=== PATIENT | male | born 1960 | race Caucasian/White ===

== ENCOUNTER 2021-06-17 11:54 | Inpatient (IN) ==
[2021-06-17] MEDS ORDERED: ALBUT/IPRATROP 3MG/0.5MG NEB 3 ML VIAL NEB ONE (12:13)
[2021-06-17] MEDS ORDERED: dexAMETHasone**PF** 10 MG/ML VIAL IV ONE (12:13)
--- NOTE | 2021-06-17 12:19 | Emergency Department Note ---
Impression & Plan COVID-19, Acute hypercapnic respiratory failure, Hypoxia, Bilateral lower leg cellulitis, Acute congestive heart failure ED Provider Note Name: HODA GARCIA Age: 60 Sex: M Arrives Via: Walk-In Informant: Patient ED Provider: Tawanda Dowell MD Chief Complaint: shortness of breath Impression: As Per Impressions Above Medical Decision Makin yr old male with morbid obesity and 40 pack year smoking history arrives for worsening shortness of breath x 3 days. He arrives quite ill appearing with hypoxia, diffuse edema, diffuse wheezing of lungs and confusion. IV/labs/cultures obtained including covid testing. Given extending neb and steroids along with being on 100% NRB. Mentation improving though still a bit wifty. With elevated dimer and acidosis felt that CT PE indicated thus sent for this. On return placed on Bipap for further management. Given empiric broad abx for presumed leg infections. He does not have fevers, wbc elevation nor lactic acidosis thus seems less likely this is primarily bacterial sepsis, though I suspect legs are infected given erythema and weeping ulcerations. With findings of large heart, fluid on lungs and 4+ pitting edema in legs he was given lasix IV as well as some Labetalol and BP still severely elevated. Patient initially looking OK on BIPAP but started worsening mentation. Gradually worsening as Covid returned positive. Given mental status felt patient no longer able to protect airway and thus he was intubated. Intubated by me without difficulty. Started propofol for sedation and hospitalist in to evaluate patient further. Of note, patient reported covid vaccination though unclear specifics on this. Prior Medical Record and Triage/Nursing Notes reviewed by Me Differentials:Reactive airway disease, pneumonia, pneumothorax, COPD, CHF, infections, cardiac ischemia, pulmonary embolism, musculoskeletal, gastrointestinal, as well as other pathologies. Vital Signs: reviewed and remarkable for hypoxia Interventions: See Below Labs:Reviewed and remarkable for elevated trop, dimer, covid positive Imaging:See Below EKG:Per My Interpretation: Indication SOB: NSR 84 bpm, qtc 474. Bifascicular block. No Ectopy. No Ischemia. Compared to EKG 04/06/2006, no significant changes. Cardiac/Tele Monitoring: Cardiac Monitoring: An Order was placed for continuous cardiac monitoring. The monitor shows a rate of 80 with a normal sinus rhythm. Consults:Dr Fisher [facility], Dr Martin Hospitalist Plan: Disposition:Hospitalization. Condition: Fair History of Present Illness:60 yr old male arrives for evaluation of shortness of breath. Patient with 3 days worsening shortness of breath. Notes that he started feeling short of breath at work ([employer]). Gradually worsening. Associated cough and chest tightness. Admits he may have passed out 2 nights ago and struck his head. Has chronic leg swelling and weeping wounds which he usually keeps wrapped. Admits rash of lower legs is normal for him. Denies fevers, chills, nausea, vomiting, headache, neck pain, vision changes, back pain , abdominal pain, urinary/bowel symptoms nor other symptoms. No medications taken for this other than Aleve without improvement. No recent abx. Any exertion makes worse, rest makes better. ROS: See above HPI for pertinent positives & negatives. A total of 10 systems reviewed and were otherwise negative. Past Medical History:Chronic Leg Swelling Past Surgical History:"Many" Family History:Unknown Social History:Smoker x 40 yrs, works at [employer] Home Medications:None Allergies:NKDA Vitals:Blood Pressure: 162/90, Pulse 91, RR 20, T 3.5C, O2 74% on RA Physical Exam: GENERAL: Patient is very unwell appearing and in moderate distress. He is very dyspneic and tired appearing EYES: No scleral icterus, unremarkable pupils. ENT: Mucous membranes moist, no nasal congestion. NECK: No masses appreciated, nomeningismus, trachea is midline. RESPIRATORY: diffuse tight wheezing, tachypnea, dyspnea, crackles all lung iglesias CARDIOVASCULAR: Regular rate and rhythm.No murmurs, rubs, gallops appreciated. GASTROINTESTINAL: large protuberant abdomen which is soft, non-tender, no peritonitis.Bowel sounds positive.No masses appreciated. BACK: No midline tenderness, no CVA tenderness EXTREMITIES: Normal motion all extremities. Venous stasis with 4+ pitting edema with open weeping wounds bilaterally on legs NEUROLOGIC: Awake, oriented though slightly confused/distant, no acute motor or sensory deficits, no focal weakness, cranial nerves grossly intact. SKIN: No rash, no jaundice, no diaphoresis. PSYCH: Appropriate GCS: 15 ED Course: Times/Reassessments: gradually worsening mental decline requiring intubation. Procedures: Endotracheal Intubation Indication: Respiratory Failure The patient was being bagged by respiratory with BVM. Suction, airway equipment, RSI drugs, respiratory equipment, and appropriate personnel were prepared prior to the initiation of the procedure. A time out was taken. Induction was performed with Etomidate/Succinylcholine. After observing the clinical benefit of the medications, the airway was easily visualized utilizing a #4 Glidescope blade. A 7.5 size ETT tube was placed atraumatically to 26 cm using standard technique. The cuff inflated without signs of malfunction. There were bilateral breath sounds, positive colormetric change, no gastric sounds, a good capnography waveform, and post procedure pulse oximetry was 97%. Post intubation sedation and paralysis was administered using propofol. There were no complications. Critical Care: I have personally spent 90 minutes of critical care time in the direct management of this patient. Acute respiratory failure secondary to covid. This was a life/limb threatening event. This 90 minutes is in excess of all separately billable procedures. Tawanda Dowell MD Past Med/Surg History Medical History (Updated 06/17/21 @ 15:34 by Susan Weaver PA-C) Dyslipidemia Impaired fasting glucose Obesity Tobacco use Venous insufficiency Surgical History (Updated 06/17/21 @ 15:27 by Susan Weaver PA-C) History of arthroplasty of right knee History of bilateral total hip arthroplasty History of cranial surgery For epidural hematoma Hx of tonsillectomy Family History (Updated 06/17/21 @ 15:35 by Susan Weaver PA-C) Other Diabetes Social History Smoking Status: Current every day smoker Feels Safe at Home: Yes Allergies Allergies Allergy/AdvReac Type Severity Reaction Status Date / Time No Known Allergies Allergy Unknown Verified 04/06/06 15:02 Home Meds Home Medications Medication Instructions Recorded Confirmed No Known Home Medications 06/17/21 06/17/21 Results & Data (ED) Vital Signs Vital Signs - 24 hr 06/17/21 11:55 06/17/21 12:00 06/17/21 12:26 Temperature 36.5 C Temperature Source Temporal Artery Scan Pulse Rate 91 H 79 Pulse Rate [Right Finger] Pulse Rhythm [Right Finger] Pulse Strength [Right Finger] Respiratory Rate 20 3 L Respiratory Effort / Characteristics Non-Labored Spontaneous Respiratory Depth Normal Respiratory Pattern Regular Blood Pressure 162/90 H Blood Pressure [Right Arm] Blood Pressure Mean 114 Blood Pressure Mean [Right Arm] Blood Pressure Position [Right Arm] Pulse Oximetry 98 74 L 96 Oxygen Delivery Method Non-rebreather Room Air Nebulizer Oxygen Flow Rate 15 Fraction of Inspired Oxygen SaO2/FiO2 Ratio Sepsis Recent Fever Within 48 Hours No Sepsis New/Unexplained Change in Mental Status No Sepsis Action Taken by Nursing No Action Required 06/17/21 12:28 06/17/21 12:30 06/17/21 13:00 Temperature Temperature Source Pulse Rate 80 79 Pulse Rate [Right Finger] 77 Pulse Rhythm [Right Finger] Pulse Strength [Right Finger] Respiratory Rate 18 10 L 29 H Respiratory Effort / Characteristics Spontaneous Respiratory Depth Respiratory Pattern Blood Pressure 211/129 H 192/92 H Blood Pressure [Right Arm] Blood Pressure Mean 156 125 Blood Pressure Mean [Right Arm] Blood Pressure Position [Right Arm] Pulse Oximetry 97 94 96 Oxygen Delivery Method Non-rebreather Nebulizer Nebulizer Oxygen Flow Rate 13 Fraction of Inspired Oxygen SaO2/FiO2 Ratio Sepsis Recent Fever Within 48 Hours Sepsis New/Unexplained Change in Mental Status Sepsis Action Taken by Nursing 06/17/21 13:25 06/17/21 13:59 06/17/21 14:16 Temperature Temperature Source Pulse Rate 84 Pulse Rate [Right Finger] 80 Pulse Rhythm [Right Finger] Regular Pulse Strength [Right Finger] Normal Respiratory Rate 22 22 Respiratory Effort / Characteristics Short of Breath Non-Labored Respiratory Depth Normal Normal Respiratory Pattern Tachypnea Regular Blood Pressure Blood Pressure [Right Arm] 200/133 H Blood Pressure Mean Blood Pressure Mean [Right Arm] 155 Blood Pressure Position [Right Arm] Pulse Oximetry 97 94 Oxygen Delivery Method Non-rebreather Oxygen Flow Rate 15 Fraction of Inspired Oxygen 60 SaO2/FiO2 Ratio Sepsis Recent Fever Within 48 Hours Sepsis New/Unexplained Change in Mental Status Sepsis Action Taken by Nursing 06/17/21 14:27 06/17/21 14:30 06/17/21 15:41 Temperature Temperature Source Pulse Rate 66 Pulse Rate [Right Finger] 81 74 Pulse Rhythm [Right Finger] Regular Regular Pulse Strength [Right Finger] Normal Respiratory Rate 14 14 21 Respiratory Effort / Characteristics Non-Labored Non-Labored Respiratory Depth Normal Normal Respiratory Pattern Regular Blood Pressure Blood Pressure [Right Arm] 163/99 H 128/90 Blood Pressure Mean Blood Pressure Mean [Right Arm] 120 102 Blood Pressure Position [Right Arm] Lying Pulse Oximetry 92 93 100 Oxygen Delivery Method BiPAP BiPAP Oxygen Flow Rate Fraction of Inspired Oxygen 60 80 SaO2/FiO2 Ratio 153 Sepsis Recent Fever Within 48 Hours Sepsis New/Unexplained Change in Mental Status Sepsis Action Taken by Nursing Laboratory Data Result diagrams: 06/17/21 12:23 06/17/21 12:23 Lab Results 06/17/21 06/17/21 06/17/21 Range/Units 12:23 12:23 12:23 WBC 12.42 H (4.8-10.8) K/uL RBC 5.67 (4.7-6.1) M/uL Hgb 17.3 (14.0-18.0) g/dL Hct 52.5 H (42-52) % MCV 92.6 (80-100) fL MCH 30.5 (25-34) pg MCHC 33.0 (32-36) g/dL RDW Std Deviation 48.2 H (36.4-46.3) fL RDW Coeff of Rosanna 14.2 (11.5-14.5) % Plt Count 297 (130-400) K/uL MPV 9.8 (7.4-10.4) fL Immature Gran % (Auto) 0.9 % Neut % (Auto) 76.0 % Lymph % (Auto) 12.2 % [place] % (Auto) 10.4 % Eos % (Auto) 0.3 % Baso % (Auto) 0.2 % Neut # (Auto) 9.44 H (1.4-6.5) K/uL Lymph # (Auto) 1.51 (1.2-3.4) K/uL [place] # (Auto) 1.29 H (0.11-0.59) K/uL Eos # (Auto) 0.04 (0-0.5) K/uL Baso # (Auto) 0.03 (0-0.2) K/uL Immature Gran # (Auto) 0.11 H (0.00-0.02) K/uL D-Dimer (0-500) ug/L FEU ABG pH (7.35-7.45) ABG pCO2 (35-46) mmHg ABG pO2 (80-95) mmHg ABG HCO3 (19-24) mmol/L ABG O2 Saturation (90-95) % ABG Base Excess (-9-1.8) mEq/L Ivan Test (Pos) VBG pH (7.36-7.41) VBG pCO2 (38-50) mmHg VBG pO2 mmHg VBG HCO3 mmol/L VBG O2 Saturation % VBG Base Excess mEq/L Barometric Pressure mm/Hg Oxygen Given Sodium 128 L (136-145) mmol/L Potassium 4.9 (3.5-5.1) mmol/L Chloride 92 L (98-107) mmol/L Carbon Dioxide 31 (21-32) mmol/L Anion Gap 5.0 (3-11) BUN 29 H (7-18) mg/dl Creatinine 1.09 (0.6-1.4) mg/dl Est Cr Clr Drug Dosing 102.8 ml/min Est GFR ( Amer) 86.3 ml/min Est GFR (Non-Af Amer) 74.4 ml/min BUN/Creatinine Ratio 26.2 H (10-20) Glucose 112 H (70-99) mg/dl Lactate 1.3 (0.4-2.0) mmol/L Calcium 8.3 L (8.5-10.1) mg/dl Magnesium 2.3 (1.8-2.4) mg/dl Total Bilirubin 1.2 H (0.2-1) mg/dl Direct Bilirubin 0.8 H (0-0.2) mg/dl AST 62 H (15-37) U/L ALT 73 (12-78) U/L Alkaline Phosphatase 106 (45-117) U/L Troponin I 0.106 H* (0-0.045) ng/ml C-Reactive Protein 2.35 H (0-0.29) mg/dl NT-Pro-B Natriuret Pep 6848 H (0-900) pg/ml Total Protein 6.9 (6.4-8.2) gm/dl Albumin 3.2 L (3.4-5.0) gm/dl Lipase 378 (73-393) U/L Procalcitonin (0-0.5) ng/ml TSH 1.140 (0.300-4.500) uIu/ml COVID-19 Eval Order SARS-CoV-2 (PCR) (Negative) 06/17/21 06/17/21 06/17/21 Range/Units 12:23 12:23 12:39 WBC (4.8-10.8) K/uL RBC (4.7-6.1) M/uL Hgb (14.0-18.0) g/dL Hct (42-52) % MCV (80-100) fL MCH (25-34) pg MCHC (32-36) g/dL RDW Std Deviation (36.4-46.3) fL RDW Coeff of Rosanna (11.5-14.5) % Plt Count (130-400) K/uL MPV (7.4-10.4) fL Immature Gran % (Auto) % Neut % (Auto) % Lymph % (Auto) % [place] % (Auto) % Eos % (Auto) % Baso % (Auto) % Neut # (Auto) (1.4-6.5) K/uL Lymph # (Auto) (1.2-3.4) K/uL [place] # (Auto) (0.11-0.59) K/uL Eos # (Auto) (0-0.5) K/uL Baso # (Auto) (0-0.2) K/uL Immature Gran # (Auto) (0.00-0.02) K/uL D-Dimer 1090 H* (0-500) ug/L FEU ABG pH (7.35-7.45) ABG pCO2 (35-46) mmHg ABG pO2 (80-95) mmHg ABG HCO3 (19-24) mmol/L ABG O2 Saturation (90-95) % ABG Base Excess (-9-1.8) mEq/L Ivan Test (Pos) VBG pH 7.19 L (7.36-7.41) VBG pCO2 94 H (38-50) mmHg VBG pO2 86 mmHg VBG HCO3 35 mmol/L VBG O2 Saturation 95.0 % VBG Base Excess 2.8 mEq/L Barometric Pressure 733.9 mm/Hg Oxygen Given Sodium (136-145) mmol/L Potassium (3.5-5.1) mmol/L Chloride (98-107) mmol/L Carbon Dioxide (21-32) mmol/L Anion Gap (3-11) BUN (7-18) mg/dl Creatinine (0.6-1.4) mg/dl Est Cr Clr Drug Dosing ml/min Est GFR ( Amer) ml/min Est GFR (Non-Af Amer) ml/min BUN/Creatinine Ratio (10-20) Glucose (70-99) mg/dl Lactate (0.4-2.0) mmol/L Calcium (8.5-10.1) mg/dl Magnesium (1.8-2.4) mg/dl Total Bilirubin (0.2-1) mg/dl Direct Bilirubin (0-0.2) mg/dl AST (15-37) U/L ALT (12-78) U/L Alkaline Phosphatase (45-117) U/L Troponin I (0-0.045) ng/ml C-Reactive Protein (0-0.29) mg/dl NT-Pro-B Natriuret Pep (0-900) pg/ml Total Protein (6.4-8.2) gm/dl Albumin (3.4-5.0) gm/dl Lipase (73-393) U/L Procalcitonin 0.07 (0-0.5) ng/ml TSH (0.300-4.500) uIu/ml COVID-19 Eval Order SARS-CoV-2 (PCR) (Negative) 06/17/21 06/17/21 06/17/21 Range/Units 13:28 13:28 15:30 WBC (4.8-10.8) K/uL RBC (4.7-6.1) M/uL Hgb (14.0-18.0) g/dL Hct (42-52) % MCV (80-100) fL MCH (25-34) pg MCHC (32-36) g/dL RDW Std Deviation (36.4-46.3) fL RDW Coeff of Rosanna (11.5-14.5) % Plt Count (130-400) K/uL MPV (7.4-10.4) fL Immature Gran % (Auto) % Neut % (Auto) % Lymph % (Auto) % [place] % (Auto) % Eos % (Auto) % Baso % (Auto) % Neut # (Auto) (1.4-6.5) K/uL Lymph # (Auto) (1.2-3.4) K/uL [place] # (Auto) (0.11-0.59) K/uL Eos # (Auto) (0-0.5) K/uL Baso # (Auto) (0-0.2) K/uL Immature Gran # (Auto) (0.00-0.02) K/uL D-Dimer (0-500) ug/L FEU ABG pH 7.14 L* (7.35-7.45) ABG pCO2 104 H (35-46) mmHg ABG pO2 74 L (80-95) mmHg ABG HCO3 35 H (19-24) mmol/L ABG O2 Saturation 92.7 (90-95) % ABG Base Excess 1.3 (-9-1.8) mEq/L Ivan Test Pos (Pos) VBG pH (7.36-7.41) VBG pCO2 (38-50) mmHg VBG pO2 mmHg VBG HCO3 mmol/L VBG O2 Saturation % VBG Base Excess mEq/L Barometric Pressure 735.8 mm/Hg Oxygen Given 60% Sodium (136-145) mmol/L Potassium (3.5-5.1) mmol/L Chloride (98-107) mmol/L Carbon Dioxide (21-32) mmol/L Anion Gap (3-11) BUN (7-18) mg/dl Creatinine (0.6-1.4) mg/dl Est Cr Clr Drug Dosing ml/min Est GFR ( Amer) ml/min Est GFR (Non-Af Amer) ml/min BUN/Creatinine Ratio (10-20) Glucose (70-99) mg/dl Lactate (0.4-2.0) mmol/L Calcium (8.5-10.1) mg/dl Magnesium (1.8-2.4) mg/dl Total Bilirubin (0.2-1) mg/dl Direct Bilirubin (0-0.2) mg/dl AST (15-37) U/L ALT (12-78) U/L Alkaline Phosphatase (45-117) U/L Troponin I (0-0.045) ng/ml C-Reactive Protein (0-0.29) mg/dl NT-Pro-B Natriuret Pep (0-900) pg/ml Total Protein (6.4-8.2) gm/dl Albumin (3.4-5.0) gm/dl Lipase (73-393) U/L Procalcitonin (0-0.5) ng/ml TSH (0.300-4.500) uIu/ml COVID-19 Eval Order Covid19 at [facility] SARS-CoV-2 (PCR) POSITIVE A* (Negative) Administered Medications Discontinued Medications Albuterol (Albut/Ipratrop 3mg/0.5mg Neb 3 Ml Vial) 12 ml NEB ONE ONE Stop: 06/17/21 12:14 Last Admin: 06/17/21 12:27 Dose: 12 ml Documented by: [id number] Dexamethasone Sodium Phosphate (DexamethasonePf 10 Mg/Ml Vial) 10 mg IV NOW ONE Stop: 06/17/21 12:14 Last Admin: 06/17/21 12:51 Dose: 10 mg Documented by: [id number] Furosemide (Furosemide 40 Mg/4 Ml Vial) 40 mg IV ONE ONE Stop: 06/17/21 14:18 Last Admin: 06/17/21 14:22 Dose: 40 mg Documented by: [id number] Piperacillin Sod/Tazobactam Sod (Zosyn) 4.5 gm in 120 mls @ 240 mls/hr IV NOW ONE Stop: 06/17/21 14:38 Last Infusion: 06/17/21 15:06 Dose: 0 mls/hr Documented by: [id number] Admin: 06/17/21 14:22 Dose: 240 mls/hr Documented by: [id number] Daptomycin 600 mg/ Syringe 12 mls @ 6 mls/min IV NOW ONE; Protocol Stop: 06/17/21 14:10 Last Admin: 06/17/21 14:24 Dose: 6 mls/min Documented by: [id number] Ioversol (Optiray 320 125ml) 119 ml IV ONCE ONE Stop: 06/17/21 13:55 Last Admin: 06/17/21 13:55 Dose: 119 ml Documented by: [id number] Labetalol HCl (Labetalol Hcl Iv 5 Mg/Ml 20ml) 10 mg IV NOW STA Stop: 06/17/21 14:06 Last Admin: 06/17/21 14:22 Dose: 10 mg Documented by: [id number] Cosigned by: [id number] Imaging Data Radiologist's Impression: Chest CTA 06/17/21 13:25 CT ANGIOGRAM OF THE CHEST CLINICAL HISTORY: Dyspnea. Dizziness. COMPARISON STUDY: Chest CT dated 04/07/2006. TECHNIQUE: Following the IV administration of 119 cc of Optiray 320, CT angiogram of the chest was performed from the upper abdomen to the thoracic inlet utilizing the pulmonary embolus protocol. Images are reviewed in the axial, sagittal, and coronal planes. 3-D MIPS images are created and assessed. IV contrast was administered without complication. A dose lowering technique w as utilized adhering to the principles of ALARA. CT DOSE: 2164.61 mGy.cm FINDINGS: Thyroid: Mildly enlarged and heterogeneous. Thoracic aorta: The thoracic aorta is normal in caliber and demonstrates standard 3-vessel arch anatomy. No dissection is seen. Pulmonary vasculature: The pulmonary trunk is dilated, measuring up to 4.2 cm diameter. This suggests pulmonary artery hypertension. There are no filling defects identified in main, lobar, or proximal segmental pulmonary branches to suggest pulmonary embolus. Evaluation of the peripheral branches is degraded by motion artifact and suboptimal contrast opacification. Heart: The heart is markedly enlarged and without pericardial effusion. Lungs and pleural spaces: Evaluation of the lung parenchyma is degraded by motion artifact. There is a small right pleural effusion with associated right basilar consolidation. Fluid is seen tracking along the right major fissure. Atelectasis is noted at the left lung base. The trachea and central airways are clear. Mediastinum: There are numerous mildly enlarged mediastinal nodes which measure up to 11 mm in short axis. Nathaly: Enlarged hilar nodes measure up to 15 mm short axis. Axillae: There is no axillary lymphadenopathy. Upper abdomen: The liver is cirrhotic in morphology and heterogeneous in attenuation. There is a small to moderate volume of perihepatic ascites. Diverticulosis is noted in the partially imaged left colon. A gastrohepatic lymph node on image #31 measures 2.0 x 1.5 cm. There is a small hiatal hernia. Skeletal structures: The skeletal structures are osteopenic. Spondylotic change is noted throughout the thoracic spine. There are healed left-sided rib fractures. No lytic or blastic bony lesions are seen. IMPRESSION: 1. Motion degraded examination. 2. There is no evidence of central pulmonary embolus in the main, lobar, or proximal segmental pulmonary arteries. 3. Marked cardiomegaly with evidence of pulmonary artery hypertension. 4. Small right pleural effusion with right basilar consolidation. This could represent atelectasis and/or pneumonia and clinical correlation will be required. 5. Cirrhotic liver morphology with upper abdominal ascites. 6. Mildly enlarged mediastinal and hilar nodes may be reactive. 7. There is a pathologically enlarged gastrohepatic node. This is nonspecific and neoplasm is not excluded. ACT 112: Negative or not required by law. Electronically signed by: Murray Abdalla M.D. 06/17/2021 2:[address] 06/17/21 13:25 CT head/brain wo con CLINICAL HISTORY: fall head injury . Pain, dizziness and blurred vision. Intermittent arm numbness COMPARISON STUDY: 05/24/2006 CT DOSE: TECHNIQUE: Standard CT of the Brain was performed without IV contrast. A dose lowering technique was utilized adhering to the principles of ALARA. FINDINGS: Extraaxial space: There is no evidence for subdural hematoma. There are no extra-axial fluid collections. Ventricles and cisterns: The ventricles are normal in size and configuration. There is no evidence for midline shift or mass effect. Parenchyma: There is no subarachnoid or intraparenchymal hemorrhage. There is no evidence for an acute infarct or cerebral edema. There is homogeneous attenuation of the brain parenchyma. There are no gross mass lesions. Osseous structures: There is no evidence for an acute fracture. The visualized paranasal sinuses are clear. The mastoid air cells are clear bilaterally. Soft tissues: There is no evidence for focal soft tissue swelling. IMPRESSION: No acute intracerebral pathology. ACT 112: Negative or not required by law. Electronically signed by: Saleem Templeton M.D. 06/17/2021 2:12 PM Discharge Plan Visit Data Chief Complaint: Shortness of Breath/Dyspnea Stated Complaint: SOB, WEEZING, TINGLING IN HANDS, BLURRED VISION ED Provider: Tawanda Dowell Discharge Problem: COVID-19, Acute hypercapnic respiratory failure, Hypoxia, Bilateral lower leg cellulitis, Acute congestive heart failure Forms Stand Alone Forms: [facility] Prescriptions Prescriptions: No Action No Known Home Medications RF: 0 Referrals Referrals: PCP,NO [Primary Care Provider] - Discharge Problem: Acute congestive heart failure Qualifiers: Heart failure type: combined systolic and diastolic Qualified Code(s): I50.41 - Acute combined systolic (congestive) and diastolic (congestive) heart failure
[2021-06-17 12:38] LABS: Basophils # (auto) 0.03 K/uL (0-0.2); Basophils % (auto) 0.2 %; Eosinophils # (auto) 0.04 K/uL (0-0.5); Eosinophils % (auto) 0.3 %; Hematocrit (blood only) 52.5 % (42-52); Hemoglobin 17.3 g/dL (14.0-18.0); Immature Granulocytes # (auto) 0.11 K/uL (0.00-0.02); Immature Granulocytes % (auto) 0.9 %; Lymphocytes # (auto) 1.51 K/uL (1.2-3.4); Lymphocytes % (auto) 12.2 %; Mean Corpuscular Hemoglobin 30.5 pg (25-34); Mean Corpuscular Volume 92.6 fL (80-100); Mean Platelet Volume 9.8 fL (7.4-10.4); Monocytes # (auto) 1.29 K/uL (0.11-0.59); Monocytes % (auto) 10.4 %; Neutrophils # (auto) 9.44 K/uL (1.4-6.5); Platelet Count 297 K/uL (130-400); RDW Coefficient of Variation 14.2 % (11.5-14.5); RDW Standard Deviation 48.2 fL (36.4-46.3); Red Blood Count 5.67 M/uL (4.7-6.1); White Blood Count 12.42 K/uL (4.8-10.8)
[2021-06-17 12:49] LABS: Base Excess VBG 2.8 mEq/L; pH VBG 7.19 (7.36-7.41)
[2021-06-17 12:51] LABS: D Dimer 1090 ug/L FEU (0-500)
[2021-06-17 12:54] LABS: Albumin Level 3.2 gm/dl (3.4-5.0); BUN Creatinine Ratio 26.2 (10-20); Bilirubin Direct 0.8 mg/dl (0-0.2); C Reactive Protein 2.35 mg/dl (0-0.29); Calcium 8.3 mg/dl (8.5-10.1); Creatinine Clr Calc Pharmacy 102.8 ml/min; Est GFR (African American) 86.3 ml/min; Est GFR (Non-African American) 74.4 ml/min; Magnesium 2.3 mg/dl (1.8-2.4); Potassium 4.9 mmol/L (3.5-5.1)
[2021-06-17 13:07] LABS: Bilirubin,Total 1.2 mg/dl (0.2-1); Thyroid Stimulating Hormone 1.14 uIu/ml (0.300-4.500); Total Protein 6.9 gm/dl (6.4-8.2); Troponin I 0.106 ng/ml (0-0.045)
[2021-06-17] MEDS ORDERED: OPTIRAY 320 125ml IV ONE (13:54)
[2021-06-17] MEDS ORDERED: LABETALOL HCL IV 5 MG/ML 20ML IV STA (14:05)
[2021-06-17] MEDS ORDERED: DAPTOmycin 600 MG in SYRINGE 0 ML IV ONE (14:09)
[2021-06-17] MEDS ORDERED: PIPERACILL/TAZOBAC CONSULT ACTIVE PRN (14:09)
[2021-06-17] MEDS ORDERED: PIPERACILLIN/TAZOBACTAM 4.5 GM/120 ML BAG IV ONE (14:09)
--- NOTE | 2021-06-17 14:14 | CT Scan Report ---
CT ANGIOGRAM OF THE CHEST CLINICAL HISTORY: Dyspnea. Dizziness. COMPARISON STUDY: Chest CT dated 04/07/2006. TECHNIQUE: Following the IV administration of 119 cc of Optiray 320, CT angiogram of the chest was pe rformed from the upper abdomen to the thoracic inlet utilizing the pulmonary embolus protocol. Images are reviewed in the axial, sagittal, and coronal planes. 3-D MIPS images are created and assessed. I V contrast was administered without complication. A dose lowering technique was utilized adhering to the principles of ALARA. CT DOSE: 2164.61 mGy.cm FINDINGS: Thyroid: Mildly enlarged and heterogeneous. Thoracic aorta: The thoracic aorta is normal in caliber and demonstrates standard 3-vessel arch anato my. No dissection is seen. Pulmonary vasculature: The pulmonary trunk is dilated, measuring up to 4.2 cm diameter. This suggests pulmonary artery hypertension. There are no filling defects identified in main, lobar, or proximal s egmental pulmonary branches to suggest pulmonary embolus. Evaluation of the peripheral branches is de graded by motion artifact and suboptimal contrast opacification. Heart: The heart is markedly enlarged and without pericardial effusion. Lungs and pleural spaces: Evaluation of the lung parenchyma is degraded by motion artifact. There is a small right pleural effusion with associated right basilar consolidation. Fluid is seen tracking al seth the right major fissure. Atelectasis is noted at the left lung base. The trachea and central airw ays are clear. Mediastinum: There are numerous mildly enlarged mediastinal nodes which measure up to 11 mm in short axis. Nathaly: Enlarged hilar nodes measure up to 15 mm short axis. Axillae: There is no axillary lymphadenopathy. Upper abdomen: The liver is cirrhotic in morphology and heterogeneous in attenuation. There is a smal l to moderate volume of perihepatic ascites. Diverticulosis is noted in the partially imaged left col on. A gastrohepatic lymph node on image #31 measures 2.0 x 1.5 cm. There is a small hiatal hernia. Skeletal structures: The skeletal structures are osteopenic. Spondylotic change is noted throughout t he thoracic spine. There are healed left-sided rib fractures. No lytic or blastic bony lesions are se en. IMPRESSION: 1. Motion degraded examination. 2. There is no evidence of central pulmonary embolus in the main, lobar, or proximal segmental pulmon linda arteries. 3. Marked cardiomegaly with evidence of pulmonary artery hypertension. 4. Small right pleural effusion with right basilar consolidation. This could represent atelectasis a nd/or pneumonia and clinical correlation will be required. 5. Cirrhotic liver morphology with upper abdominal ascites. 6. Mildly enlarged mediastinal and hilar nodes may be reactive. 7. There is a pathologically enlarged gastrohepatic node. This is nonspecific and neoplasm is not exc luded. ACT 112: Negative or not required by law. Electronically signed by: Murray Abdalla M.D. 06/17/2021 2:12 PM
--- NOTE | 2021-06-17 14:14 | CT Scan Report ---
CT head/brain wo con CLINICAL HISTORY: fall head injury . Pain, dizziness and blurred vision. Intermittent arm numbness COMPARISON STUDY: 05/24/2006 CT DOSE: TECHNIQUE: Standard CT of the Brain was performed without IV contrast. A dose lowering technique was utilized adhering to the principles of ALARA. FINDINGS: Extraaxial space: There is no evidence for subdural hematoma. There are no extra-axial fluid collecti ons. Ventricles and cisterns: The ventricles are normal in size and configuration. There is no evidence f or midline shift or mass effect. Parenchyma: There is no subarachnoid or intraparenchymal hemorrhage. There is no evidence for an acu te infarct or cerebral edema. There is homogeneous attenuation of the brain parenchyma. There are no gross mass lesions. Osseous structures: There is no evidence for an acute fracture. The visualized paranasal sinuses are clear. The mastoid air cells are clear bilaterally. Soft tissues: There is no evidence for focal soft tissue swelling. IMPRESSION: No acute intracerebral pathology. ACT 112: Negative or not required by law. Electronically signed by: Saleem Templeton M.D. 06/17/2021 2:12 PM
[2021-06-17] MEDS ORDERED: FUROSEMIDE 40 MG/4 ML VIAL IV ONE (14:17)
--- NOTE | 2021-06-17 15:04 | History & Physical Report ---
Date of Service June 17, 2021 Assessment & Plan (1) Acute hypoxemic respiratory failure: (2) Acute hypercapnic respiratory failure: (3) COVID-19: (4) Fluid overload: Plan: Patient is 60 y/o M with PMH venous insufficiency, tobacco use, dyslipidemia, h/o impaired fasting glucose, obesity presented to ER with c/o SOB x 3 days. In ER patient patient afebrile, patient presented with oxygen sat of 74% on room air. +confused. Patient was initially given albuterol neb and placed on nonrebreather, then placed on bipap. He later decompensated and required intubation. +COVID-19 positive, lactate: 1.3, procalcitonin: 0.07, CRP: 2.3, BNP: 6848, D- Dimer: 1090. ABG: pH: 7.14, pCO2: 104, pO2: 74, HCO3: 35 CTA chest: no PE, small right pleural effusion with right basilar consolidation CT head: No acute intracerebral findings In ER given dexamethasone 10 mg IV, Lasix 40 mg IV, labetalol 10 mg IV Pt admitted to ICU. 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 Has not seen since 2017. Pt care coordinated with Dr Martin. See addendum History of Present Illness Chief Complaint: SOB Primary Care Provider: NO PCP Patient is 60 y/o M with PMH venous insufficiency, tobacco use, dyslipidemia, h/o impaired fasting glucose, obesity presented to ER with c/o SOB x 3 days. Patient previously followed with Dr Chu however has not been seen since 2017. At that time was prescribed atorvastatin 20mg and metformin 500mg daily. History obtained from chart review and ER provider as patient is intubated. Reported SOB x 3 days, chest tightness and cough. Reported chronic leg swelling and weeping. Reported possible syncopal episode 2 days ago and hitting head. In ER patient patient afebrile, patient presented with oxygen sat of 74% on room air. Reported patient was confused. Patient was initially given albuterol neb and placed on nonrebreather. VBG: pH: 7.12, pCO2: 94. Pt placed on bipap. He later decompensated and required intubation. +COVID-19 positive, lactate: 1.3, procalcitonin: 0.07, CRP: 2.3, BNP: 6848, D- Dimer: 1090 CTA chest: no PE, small right pleural effusion with right basilar consolidation CT head: No acute intracerebral findings In ER given dexamethasone 10 mg IV, Lasix 40 mg IV, labetalol 10 mg IV, Zosyn, Daptomycin. ABG obtained: pH: 7.14, pCO2: 104, pO2: 74, HCO3: 35 Unable to obtain alcohol or drug use history. Allergies Allergy/AdvReac Type Severity Reaction Status Date / Time No Known Allergies Allergy Unknown Verified 04/06/06 15:02 Home Medications Medication Instructions Recorded Confirmed Type No Known Home Medications 06/17/21 06/17/21 History Past Med/Surg History Medical History (Updated 06/17/21 @ 17:05 by Susan Weaver PA-C) Dyslipidemia Impaired fasting glucose Obesity Tobacco use Venous insufficiency Surgical History (Updated 06/17/21 @ 15:27 by Susan Weaver PA-C) History of arthroplasty of right knee History of bilateral total hip arthroplasty History of cranial surgery For epidural hematoma Hx of tonsillectomy Family History (Updated 06/17/21 @ 15:35 by Susan Weaver PA-C) Other Diabetes Social History Smoking Status: Current every day smoker Feels Safe at Home: Yes Review of Systems Review of Systems: Unobtainable due to endotracheal tube Physical Exam Physical Exam: Per Dr Martin Results & Data Results & Data ([facility]) Vital Signs (Past 12 Hours) Vital Signs Temp Pulse Pulse Resp BP BP Pulse Ox 06/17/21 14:30 74 14 128/90 93 06/17/21 14:27 81 14 163/99 H 92 06/17/21 14:16 84 22 94 06/17/21 13:59 80 22 200/133 H 97 06/17/21 13:00 79 29 H 192/92 H 96 06/17/21 12:30 80 10 L 211/129 H 94 06/17/21 12:28 77 18 97 06/17/21 12:26 79 3 L 96 06/17/21 12:00 36.5 C 91 H 20 162/90 H 74 L 11/10/21 11:55 98 Laboratory Results Short CBC 06/17/21 Range/Units 12:23 WBC 12.42 H (4.8-10.8) K/uL Hgb 17.3 (14.0-18.0) g/dL Hct 52.5 H (42-52) % Plt Count 297 (130-400) K/uL BMP 06/17/21 12:23 Sodium 128 L Potassium 4.9 Chloride 92 L Carbon Dioxide 31 BUN 29 H Creatinine 1.09 Glucose 112 H Calcium 8.3 L Cardiac Enzymes 06/17/21 Range/Units 12:23 Troponin I 0.106 H* (0-0.045) ng/ml Liver Function 06/17/21 Range/Units 12:23 Total Bilirubin 1.2 H (0.2-1) mg/dl Direct Bilirubin 0.8 H (0-0.2) mg/dl AST 62 H (15-37) U/L ALT 73 (12-78) U/L Alkaline Phosphatase 106 (45-117) U/L Albumin 3.2 L (3.4-5.0) gm/dl Diagnostic Findings Chest CTA 06/17/21 13:25 CT ANGIOGRAM OF THE CHEST CLINICAL HISTORY: Dyspnea. Dizziness. COMPARISON STUDY: Chest CT dated 04/07/2006. TECHNIQUE: Following the IV administration of 119 cc of Optiray 320, CT angiogram of the chest was performed from the upper abdomen to the thoracic inle t utilizing the pulmonary embolus protocol. Images are reviewed in the axial, sagittal, and coronal planes. 3-D MIPS images are created and assessed. IV contrast was administered without complication. A dose lowering technique was utilized adhering to the principles of ALARA. CT DOSE: 2164.61 mGy.cm FINDINGS: Thyroid: Mildly enlarged and heterogeneous. Thoracic aorta: The thoracic aorta is normal in caliber and demonstrates standard 3-vessel arch anatomy. No dissection is seen. Pulmonary vasculature: The pulmonary trunk is dilated, measuring up to 4.2 cm diameter. This suggests pulmonary artery hypertension. There are no filling defects identified in main, lobar, or proximal segmental pulmonary branches to suggest pulmonary embolus. Evaluation of the peripheral branches is degraded by motion artifact and suboptimal contrast opacification. Heart: The heart is markedly enlarged and without pericardial effusion. Lungs and pleural spaces: Evaluation of the lung parenchyma is degraded by motion artifact. There is a small right pleural effusion with associated right basilar consolidation. Fluid is seen tracking along the right major fissure. Atelectasis is noted at the left lung base. The trachea and central airways are clear. Mediastinum: There are numerous mildly enlarged mediastinal nodes which measure up to 11 mm in short axis. Nathaly: Enlarged hilar nodes measure up to 15 mm short axis. Axillae: There is no axillary lymphadenopathy. Upper abdomen: The liver is cirrhotic in morphology and heterogeneous in attenuation. There is a small to moderate volume of perihepatic ascites. Diverticulosis is noted in the partially imaged left colon. A gastrohepatic lymph node on image #31 measures 2.0 x 1.5 cm. There is a small hiatal hernia. Skeletal structures: The skeletal structures are osteopenic. Spondylotic change is noted throughout the thoracic spine. There are healed left-sided rib fractures. No lytic or blastic bony lesions are seen. IMPRESSION: 1. Motion degraded examination. 2. There is no evidence of central pulmonary embolus in the main, lobar, or proximal segmental pulmonary arteries. 3. Marked cardiomegaly with evidence of pulmonary artery hypertension. 4. Small right pleural effusion with right basilar consolidation. This could represent atelectasis and/or pneumonia and clinical correlation will be required. 5. Cirrhotic liver morphology with upper abdominal ascites. 6. Mildly enlarged mediastinal and hilar nodes may be reactive. 7. There is a pathologically enlarged gastrohepatic node. This is nonspecific and neoplasm is not excluded. ACT 112: Negative or not required by law. Electronically signed by: Murray Abdalla M.D. 06/17/2021 2:[address] 06/17/21 13:25 CT head/brain wo con CLINICAL HISTORY: fall head injury . Pain, dizziness and blurred vision. Intermittent arm numbness COMPARISON STUDY: 05/24/2006 CT DOSE: TECHNIQUE: Standard CT of the Brain was performed without IV contrast. A dose lowering technique was utilized adhering to the principles of ALARA. FINDINGS: Extraaxial space: There is no evidence for subdural hematoma. There are no extra-axial fluid collections. Ventricles and cisterns: The ventricles are normal in size and configuration. There is no evidence for midline shift or mass effect. Parenchyma: There is no subarachnoid or intraparenchymal hemorrhage. There is no evidence for an acute infarct or cerebral edema. There is homogeneous attenuation of the brain parenchyma. There are no gross mass lesions. Osseous structures: There is no evidence for an acute fracture. The visualized paranasal sinuses are clear. The mastoid air cells are clear bilaterally. Soft tissues: There is no evidence for focal soft tissue swelling. IMPRESSION: No acute intracerebral pathology. ACT 112: Negative or not required by law. Electronically signed by: Saleem Templeton M.D. 06/17/2021 2:12 PM Supervising Physician Co-Signing Physician Notes Attending addendum: The patient was seen and examined in emergency room following emergency intubation and sedation He is a 60-year-old obese male with significant past medical history of tobacco use disorder, venous insufficiency, impaired fasting glucose, hyperlipidemia and tobacco use disorder apparently has been complaining of shortness of breath for the last 3 days associated with chest tightness and cough. History of possible syncope episode 2 days ago with minor head injury. Noted to be in acute respiratory failure with hypoxia and hypercarbia and required initial BiPAP administration and followed by emergency intubation and sedation He was noted to be positive for COVID-19 virus as well Try to call his home number without any response and no other family members were available to discuss about him He was admitted to ICU for continuation of care On examination Remains intubated and sedated Hemodynamically stable Chest-decreased breath sounds at the bases with right basilar crackles Heart-S1-S2, regular Abdomen-distended, soft, possible mild to moderate ascites, bowel sound present Extremities-1+ edema bilaterally, chronic skin changes bilaterally, redness and ulcerations at few places both the lower extremities 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
[2021-06-17] MEDS ORDERED: PROPOFOL IV EMULSION 10 MG/ML 100 ML VIAL IV ONE (15:25)
[2021-06-17] MEDS ORDERED: RAPID SEQUENCE INDUCTION BAG ONE (15:26)
[2021-06-17 15:46] LABS: Allen Test Pos (Pos); Base Excess ABG 1.3 mEq/L (-9-1.8); HCO3 ABG 35 mmol/L (19-24); Oxygen Saturation ABG 92.7 % (90-95); PCO2 ABG 104 mmHg (35-46); PO2 ABG 74 mmHg (80-95); pH ABG 7.14 (7.35-7.45)
--- NOTE | 2021-06-17 16:07 | XRay Report ---
XR chest 1V portable CLINICAL HISTORY: post intubation TECHNIQUE: Single frontal radiograph of the chest was obtained. Comparison: Comparison is made to chest one view 04/06/2016 FINDINGS: Endotracheal tube terminates 7.5 cm from the marian. Cardiomegaly is noted. Lungs are underinflated b ut clear. Bilateral retrocardiac opacities are seen. IMPRESSION: Satisfactory position of endotracheal tube. Redemonstration of cardiomegaly. Bilateral retrocardiac o pacities may represent atelectasis, pneumonia, and/or aspiration. ACT 112: Negative or not required by law. Electronically signed by: Zachary Duarte M.D. 06/17/2021 4:06 PM
[2021-06-17] MEDS ORDERED: fentaNYL citrate 100 MCG/2 ML VIAL IV PRN (16:12)
[2021-06-17] MEDS ORDERED: STAT IV Infusion **Titration per Protocol STA ×2 (16:12)
[2021-06-17] MEDS ORDERED: PROPOFOL BOLUS FROM BAG IV PRN (16:12)
[2021-06-17] MEDS ORDERED: ICU PROTOCOL FOR HYPERGLYCEMIA PRN ×2 (16:12→17:38)
--- NOTE | 2021-06-17 16:13 | Critical Care Consultation ---
Date of Consultation June 17, 2021 Assessment & Plan (1) Acute hypercapnic respiratory failure: (2) Acute hypoxemic respiratory failure: (3) COVID-19: (4) Cor pulmonale: (5) Bilateral lower leg cellulitis: (6) Obesity: Impression: 60-year-old male with medical history that is not entirely complete at this point time presenting to the emergency room with hypoxemic hypercarbic respiratory failure. May be secondary to underlying obstructive lung disease. He is found to be Covid positive but has minimal parenchymal disease on his CT scan. He has evidence of pulmonary hypertension and likely has obesity hypoventilation syndrome. 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 Recommendations: 1. Neurologic: Continue sedation with propofol. Use fentanyl and Precedex as well as needed to keep the patient sedated. We will try and avoid benzodiazepines given potential delirium 2. Pulmonary: Hypoxemic and hypercarbic respiratory failure: Continue to follow blood gases as mechanical ventilation is instituted. Aggressive bronchodilators given probable COPD. Will use Perforomist and budesonide nebulized and as needed DuoNeb's. Continue steroids with dexamethasone 6 mg daily. I am not sure that the patient has Covid significantly contributing to his respiratory failure. He may need to be extubated to BiPAP. Outpatient polysomnography should be considered. Weight loss paramount 3. Cardiovascular: Cor pulmonale, likely secondary to undiagnosed or untreated sleep disordered breathing/obesity hypoventilation syndrome. Echocardiogram. Suspect diastolic dysfunction as well. Aggressive blood pressure control and diuresis. Hold on cardiology consult until echocardiogram is done. 4. Endocrine: Glycemic control per protocol. Check hemoglobin A1c. 5. ID: Patient was initiated on broad-spectrum antibiotics for presumed cellulitis. His white blood cell count is elevated. Its difficult to ascertain whether these are chronic venous stasis changes or whether they represent infection. Will use steroids to treat potential obstructive lung disease which should cover for Covid however his CRP is not high enough to justify other immune modulatory medications. Would not recommend remdesivir or other adjuvants at this point time as I think Covid is a secondary player currently but may have led to bronchospasm and associated hypercarbic respiratory failure 6. Renal: Hyponatremia. Likely hypervolemic hyponatremia continue to follow as his fluid status is normalized. Will initiate electrolyte ICU replacement protocol given diuretics. I suspect his elevated troponin is likely supply demand mismatch and would not recommend anticoagulation at this point time. We will follow his acid-base status with appropriate ventilation. 7. GI: N.p.o. for now. Cirrhotic appearance of liver on CT scan suggestive of chronic passive congestion from cor pulmonale. Check INR Patient's overall prognosis is somewhat guarded at this point time. Additional recommendations will be based on additional history, results of diagnostic studies, and patient response to therapy. A total of 50 minutes in critical care time was spent in evaluation management stabilization of this patient. History of Present Illness History of Present Illness Asked by hospitalist to assist in management of this patient intubated for hypoxemic hypercarbic respiratory failure. History is obtained from discussion with the ER staff and reviewed electronic medical record. The patient is intubated and cannot provide any history. There is no family immediately available. Patient is a 60-year-old male without any records in our system. He is obese. He presented to the emergency room today with complaints of 3 days of shortness of breath. He was noted to be edematous and hypoxemic with diffuse wheezing. Covid testing was obtained which was positive. His vaccination status is unclear. He initially demonstrated significant hypercarbic respiratory failure and a trial of BiPAP was attempted. This was unsuccessful and eventually the patient was intubated. He has received labetalol and Lasix as he was significantly hypertensive initially. He did receive dexamethasone and antibiot ics. There was concern about potential cellulitis. He is currently intubated on the ventilator and being sedated with propofol. Patient apparently does have a history of tobacco abuse. No other history readily apparent. Allergies Allergy/AdvReac Type Severity Reaction Status Date / Time No Known Allergies Allergy Unknown Verified 04/06/06 15:02 Home Medications Medication Instructions Recorded Confirmed Type No Known Home Medications 06/17/21 06/17/21 History Patient History Medical History (Updated 06/17/21 @ 16:06 by Cooper Fisher MD) Dyslipidemia Impaired fasting glucose Obesity Tobacco use Venous insufficiency Surgical History (Updated 06/17/21 @ 15:27 by Susan Weaver PA-C) History of arthroplasty of right knee History of bilateral total hip arthroplasty History of cranial surgery For epidural hematoma Hx of tonsillectomy Family History (Updated 06/17/21 @ 15:35 by Susan Weaver PA-C) Other Diabetes Social History Smoking Status: Current every day smoker Feels Safe at Home: Yes Review of Systems Review of Systems: Unobtainable due to endotracheal tube Physical Exam Constitutional: + morbidly obese Intubated and sedated. Sensitivity of physical exam is adversely affected by the patient's body habitus and morbid obesity Eyes: Purulent discharge from the bilateral eyes with some scleral injection Neck: trachea midline, no thyromegaly Respiratory: Coarse rhonchi bilaterally Cardiovascular: Rate/Rhythm: regular rate Heart Sounds: normal S1 and normal S2 Extremities: + edema Gastrointestinal (Abdomen): normal bowel sounds, soft, nontender, no hepatosplenomegaly Musculoskeletal: Extremities: extremities normal to inspection Skin: Bilateral venous stasis changes of the lower extremities are noted Neurologic: Nonfocal exam Lymphatic: no cervical lymphadenopathy Results & Data Results & Data ([facility]) Vital Signs (Past 12 Hours) Vital Signs Temp Pulse Pulse Resp BP BP Pulse Ox 06/17/21 16:00 61 20 107/69 98 06/17/21 15:41 66 21 100 06/17/21 14:30 74 14 128/90 93 06/17/21 14:27 81 14 163/99 H 92 06/17/21 14:16 84 22 94 06/17/21 13:59 80 22 200/133 H 97 06/17/21 13:00 79 29 H 192/92 H 96 06/17/21 12:30 80 10 L 211/129 H 94 06/17/21 12:28 77 18 97 06/17/21 12:26 79 3 L 96 06/17/21 12:00 36.5 C 91 H 20 162/90 H 74 L 06/17/21 11:55 98 Critical Care Results & Data Vital Signs (Past 12 Hours) Vital Signs Temp Pulse Pulse Resp BP BP Pulse Ox 06/17/21 16:00 61 20 107/69 98 06/17/21 15:41 66 21 100 06/17/21 14:30 74 14 128/90 93 06/17/21 14:27 81 14 163/99 H 92 06/17/21 14:16 84 22 94 06/17/21 13:59 80 22 200/133 H 97 06/17/21 13:00 79 29 H 192/92 H 96 06/17/21 12:30 80 10 L 211/129 H 94 06/17/21 12:28 77 18 97 06/17/21 12:26 79 3 L 96 06/17/21 12:00 36.5 C 91 H 20 162/90 H 74 L 06/17/21 11:55 98 Lab & Micro Results (Past 24 Hours) RBC 5.67 M/uL (4.7-6.1) 06/17/21 WBC 12.42 K/uL (4.8-10.8) H 06/17/21 Hgb 17.3 g/dL (14.0-18.0) 06/17/21 Hct 52.5 % (42-52) H 06/17/21 MCV 92.6 fL (80-100) 06/17/21 MCH 30.5 pg (25-34) 06/17/21 MCHC 33.0 g/dL (32-36) 06/17/21 RDW Standard Deviation 48.2 fL (36.4-46.3) H 06/17/21 RDW Coefficient of Variation 14.2 % (11.5-14.5) 06/17/21 Plt Count 297 K/uL (130-400) 06/17/21 MPV 9.8 fL (7.4-10.4) 06/17/21 Neutrophils (%) (Auto) 76.0 % 06/17/21 Lymphocytes (%) (Auto) 12.2 % 06/17/21 Monocytes # (Auto) 1.29 K/uL (0.11-0.59) H 06/17/21 Eosinophils # (Auto) 0.04 K/uL (0-0.5) 06/17/21 Immature Granulocyte % (Auto) 0.9 % 06/17/21 Neutrophils # (Auto) 9.44 K/uL (1.4-6.5) H 06/17/21 Lymphocytes # (Auto) 1.51 K/uL (1.2-3.4) 06/17/21 Monocytes # (Auto) 1.29 K/uL (0.11-0.59) H 06/17/21 Eosinophils # (Auto) 0.04 K/uL (0-0.5) 06/17/21 Basophils # (Auto) 0.03 K/uL (0-0.2) 06/17/21 Immature Granulocyte # (Auto) 0.11 K/uL (0.00-0.02) H 06/17/21 Na 128 mmol/L (136-145) L 06/17/21 K 4.9 mmol/L (3.5-5.1) 06/17/21 Cl 92 mmol/L (98-107) L 06/17/21 CO2 31 mmol/L (21-32) 06/17/21 Anion Gap 5.0 (3-11) 06/17/21 BUN 29 mg/dl (7-18) H 06/17/21 Creatinine 1.09 mg/dl (0.6-1.4) 06/17/21 Estimated GFR ( Amer) 86.3 ml/min 06/17/21 Estimated GFR (Non-Af Amer) 74.4 ml/min 06/17/21 BUN/Creatinine Ratio 26.2 (10-20) H 06/17/21 Glu 112 mg/dl (70-99) H 06/17/21 Ca 8.3 mg/dl (8.5-10.1) L 06/17/21 Total Bilirubin 1.2 mg/dl (0.2-1) H 06/17/21 Direct Bilirubin 0.8 mg/dl (0-0.2) H 06/17/21 AST 62 U/L (15-37) H 06/17/21 ALT 73 U/L (12-78) 06/17/21 Alkaline Phosphatase 106 U/L (45-117) 06/17/21 TP 6.9 gm/dl (6.4-8.2) 06/17/21 Albumin 3.2 gm/dl (3.4-5.0) L 06/17/21 Mg 2.3 mg/dl (1.8-2.4) 06/17/21 12:23 06/17/21 Calcium Level 8.3 mg/dl (8.5-10.1) L 06/17/21 12:23 06/17/21 Venous Blood pH 7.19 (7.36-7.41) L 06/17/21 12:39 06/17/21 Venous Blood Partial Pressure CO2 94 mmHg (38-50) H 06/17/21 12:39 06/17/21 Venous Blood Partial Pressure O2 86 mmHg 06/17/21 12:39 06/17/21 Venous Blood HCO3 35 mmol/L 06/17/21 12:39 06/17/21 Venous Blood Base Excess 2.8 mEq/L 06/17/21 12:39 06/17/21 Venous Blood Oxygen Saturation 95.0 % 06/17/21 12:39 06/17/21 Blood Gas Barometric Pressure 735.8 mm/Hg 06/17/21 15:30 06/17/21 Arterial Blood pH 7.14 (7.35-7.45) L* 06/17/21 15:30 06/17/21 Arterial Blood Partial Pressure CO2 104 mmHg (35-46) H 06/17/21 15:30 06/17/21 Arterial Blood Partial Pressure O2 74 mmHg (80-95) L 06/17/21 15:30 06/17/21 Arterial Blood HCO3 35 mmol/L (19-24) H 06/17/21 15:30 06/17/21 Arterial Blood Base Excess 1.3 mEq/L (-9-1.8) 06/17/21 15:30 06/17/21 Arterial Blood Oxygen Saturation 92.7 % (90-95) 06/17/21 15:30 06/17/21 Blood Gas Oxygen Given 60% 06/17/21 15:30 06/17/21 Ivan Test Pos (Pos) 06/17/21 15:30 06/17/21 Blood Gas Barometric Pressure 735.8 mm/Hg 06/17/21 15:30 06/17/21 Diagnostic Findings (Past 24 Hours) Chest CTA 06/17/21 13:25 CT ANGIOGRAM OF THE CHEST CLINICAL HISTORY: Dyspnea. Dizziness. COMPARISON STUDY: Chest CT dated 04/07/2006. TECHNIQUE: Following the IV administration of 119 cc of Optiray 320, CT angiogram of the chest was performed from the upper abdomen to the thoracic inlet utilizing the pulmonary embolus protocol. Images are reviewed in the axial, sagittal, and coronal planes. 3-D MIPS images are created and assessed. IV contrast was administered without complication. A dose lowering technique was utilized adhering to the principles of ALARA. CT DOSE: 2164.61 mGy.cm FINDINGS: Thyroid: Mildly enlarged and heterogeneous. Thoracic aorta: The thoracic aorta is normal in caliber and demonstrates standard 3-vessel arch anatomy. No dissection is seen. Pulmonary vasculature: The pulmonary trunk is dilated, measuring up to 4.2 cm diameter. This suggests pulmonary artery hypertension. There are no filling defects identified in main, lobar, or proximal segmental pulmonary branches to suggest pulmonary embolus. Evaluation of the peripheral branches is degraded by motion artifact and suboptimal contrast opacification. Heart: The heart is markedly enlarged and without pericardial effusion. Lungs and pleural spaces: Evaluation of the lung parenchyma is degraded by motion artifact. There is a small right pleural effusion with associated right basilar consolidation. Fluid is seen tracking along the right major fissure. Atelectasis is noted at the left lung base. The trachea and central airways are clear. Mediastinum: There are numerous mildly enlarged mediastinal nodes which measure up to 11 mm in short axis. Nathaly: Enlarged hilar nodes measure up to 15 mm short axis. Axillae: There is no axillary lymphadenopathy. Upper abdomen: The liver is cirrhotic in morphology and heterogeneous in attenuation. There is a small to moderate volume of perihepatic ascites. Diverticulosis is noted in the partially imaged left colon. A gastrohepatic lymph node on image #31 measures 2.0 x 1.5 cm. There is a small hiatal hernia. Skeletal structures: The skeletal structures are osteopenic. Spondylotic change is noted throughout the thoracic spine. There are healed left-sided rib fractures. No lytic or blastic bony lesions are seen. IMPRESSION: 1. Motion degraded examination. 2. There is no evidence of central pulmonary embolus in the main, lobar, or proximal segmental pulmonary arteries. 3. Marked cardiomegaly with evidence of pulmonary artery hypertension. 4. Small right pleural effusion with right basilar consolidation. This could represent atelectasis and/or pneumonia and clinical correlation will be required. 5. Cirrhotic liver morphology with upper abdominal ascites. 6. Mildly enlarged mediastinal and hilar nodes may be reactive. 7. There is a pathologically enlarged gastrohepatic node. This is nonspecific and neoplasm is not excluded. ACT 112: Negative or not required by law. Electronically signed by: Murray Abdalla M.D. 06/17/2021 2:[address] 06/17/21 13:25 CT head/brain wo con CLINICAL HISTORY: fall head injury . Pain, dizziness and blurred vision. Intermittent arm numbness COMPARISON STUDY: 05/24/2006 CT DOSE: TECHNIQUE: Standard CT of the Brain was performed without IV contrast. A dose lowering technique was utilized adhering to the principles of ALARA. FINDINGS: Extraaxial space: There is no evidence for subdural hematoma. There are no extra-axial fluid collections. Ventricles and cisterns: The ventricles are normal in size and configuration. There is no evidence for midline shift or mass effect. Parenchyma: There is no subarachnoid or intraparenchymal hemorrhage. There is no evidence for an acute infarct or cerebral edema. There is homogeneous attenuation of the brain parenchyma. There are no gross mass lesions. Osseous structures: There is no evidence for an acute fracture. The visualized paranasal sinuses are clear. The mastoid air cells are clear bilaterally. Soft tissues: There is no evidence for focal soft tissue swelling. IMPRESSION: No acute intracerebral pathology. ACT 112: Negative or not required by law. Electronically signed by: Saleem Templeton M.D. 06/17/2021 2:12 PM I & O Totals 24 Hours 06/16/21 06/17/21 06/18/21 06:59 06:59 06:59 Intake Total 120 / 120 Balance 120 / 120 Cumulative 06/17/21 11:54 thru 06/17/21 15:06 Intake Total 120 Balance 120 RT Ventilator Mngmt (Last Documented) Ventilator Ordered Settings Ventilator Support Mode Assist Control 06/17/21 15:41 Respiratory Rate 20 06/17/21 16:00 Ventilator Tidal Volume 450 06/17/21 15:41 Setting Minute Ventilation 9.9 06/17/21 15:41 Positive End Expiratory 8 06/17/21 15:41 Pressure Fraction of Inspired Oxygen 80 06/17/21 16:00 Machine Comment intubated in ER 06/17/21 15:41 Ventilator - PT Measurements Respiratory Rate 20 Exhaled Tidal Volume 455 Minute Ventilation 9.9 Peak Inspiratory Airway 21 Pressure Respiratory Cycle Inspiratory: 1:2.0 Expiratory Ratio Inspiratory Phase Time 1.0 Dynamic Lung Compliance 35.00 Normal Static Lung Compliance 48.00 Coding Level of Care Code Critical Care 1st 30-74 mins Diagnoses Acute hypercapnic respiratory failure J96.02 Acute hypoxemic respiratory failure J96.01 COVID-19 U07.1 Cor pulmonale I27.81 Bilateral lower leg cellulitis L03.116; L03.115 Obesity E66.9 Time Spent (min) 50
[2021-06-17] MEDS ORDERED: NORMOSOL-R 1,000 ML IV SCH (16:15)
[2021-06-17] MEDS ORDERED: propofoL 1,000 MG/100 ML VIAL IV SCH (16:15)
[2021-06-17 16:17] LABS: Appearance Urine Clear (Clear); Bacteria Urine Automated Negative (Negative); Blood Urine Trace (Negative); Color Urine Dark Yellow; Epithelial Cell Urine Auto 20-30 /lpf (0-5); Glucose Urine UA Negative (Negative); Ketones Urine Trace (Negative); Leukocyte Esterase Urine Negative (Negative); Nitrite Urine Negative (Negative); Protein Urine 2+ (Negative); RBC Urine Automated 0-4 /hpf (0-4); Specific Gravity Urine > 1.045 (1.000-1.030); Urobilinogen Urine Positive (Negative); pH Urine 5.5 (4.5-7.5)
[2021-06-17] MEDS ORDERED: hydrALAZINE HCL 20 MG/ML VIAL IV PRN (16:17)
[2021-06-17 16:22] LABS: Bilirubin Urine 1+ (Negative)
[2021-06-17] MEDS ORDERED: ETOMIDATE 2 MG/ML 20 ML VIAL IV ONE (17:14)
[2021-06-17] MEDS ORDERED: SUCCINYLCHOLINE CHLORIDE 20 MG/ML 10 ML VIAL IV ONE (17:14)
[2021-06-17] MEDS: fentaNYL DRIP 1,250 MCG/250 ML BAG IV SCH (17:56)
[2021-06-17] MEDS: DEXMEDETOMIDINE HCL 200 MCG in SODIUM CHLORIDE 0.9% 48 ML IV SCH ×2 (17:56→20:11)
[2021-06-17] MEDS: propofoL 1,000 MG/100 ML VIAL IV SCH ×2 (17:56→21:35)
[2021-06-17] MEDS: ICU ELECTROLYTE REPLACEMENT PROTOCOL SCH (18:33)
[2021-06-17] MEDS: PROPOFOL BOLUS FROM BAG IV PRN (19:30)
[2021-06-17] MEDS: PIPERACILLIN/TAZOBACTAM 4.5 GM in DEXTROSE 5% 100 ML IV SCH (20:08)
[2021-06-17] MEDS: ENOXAPARIN INJ 40 MG/0.4 ML SYR SQ SCH (20:09)
--- NOTE | 2021-06-17 20:24 | XRay Report ---
KUB CLINICAL HISTORY: og tube placement COMPARISON STUDY: Chest radiograph June 17, 2021 at 3:27 PM. FINDINGS: Tip of nasogastric tube is within the body of the stomach. Small bilateral pleural effusion s are noted. Bibasilar opacities are present. Old left rib fractures are incidentally noted. Visualiz ed bowel gas pattern is unremarkable. Cardiomegaly is present. IMPRESSION: Tip of nasogastric tube within the body of the stomach. ACT 112: Negative or not required by law. Electronically signed by: Isidro Lopez M.D. 06/17/2021 8:23 PM
[2021-06-17] MEDS ORDERED: FUROSEMIDE 40 MG/4 ML VIAL IV SCH (21:00)
[2021-06-17] MEDS ORDERED: ALBUT/IPRATROP 3MG/0.5MG NEB 3 ML VIAL NEB PRN (21:30)
[2021-06-17] MEDS ORDERED: PNEUMOCOCCAL Polysaccharide Vaccine 25mcg/0.5mL vial/Syr IM ONE (21:45)
[2021-06-18] MEDS: DEXMEDETOMIDINE HCL 200 MCG in SODIUM CHLORIDE 0.9% 48 ML IV SCH ×6 (01:25→23:06)
[2021-06-18] MEDS: propofoL 1,000 MG/100 ML VIAL IV SCH ×9 (03:09→20:57)
[2021-06-18] MEDS: PIPERACILLIN/TAZOBACTAM 4.5 GM in DEXTROSE 5% 100 ML IV SCH ×3 (03:10→20:47)
[2021-06-18] MEDS: PROPOFOL BOLUS FROM BAG IV PRN ×2 (04:18→04:50)
[2021-06-18 04:52] LABS: iSTAT Allen Test Pass; iSTAT Arterial Blood Gas HCO3 39 meg/L (19-24); iSTAT Arterial Blood Gas pCO2 49 mmHg (35-46); iSTAT Arterial Blood Gas pO2 58 mmHg (80-95); iSTAT Carbon Dioxide > 40 mmol/L (24-31); iSTAT FiO2 70 %; iSTAT Site L Radial
[2021-06-18 05:54] LABS: Basophils # (auto) 0.01 K/uL (0-0.2); Basophils % (auto) 0.1 %; Hematocrit (blood only) 50.1 % (42-52); Immature Granulocytes # (auto) 0.07 K/uL (0.00-0.02); Immature Granulocytes % (auto) 0.6 %; Lymphocytes # (auto) 0.81 K/uL (1.2-3.4); Mean Corpuscular Hemoglobin 30.1 pg (25-34); Mean Corpuscular Hgb Conc 33.9 g/dL (32-36); Mean Corpuscular Volume 88.7 fL (80-100); Mean Platelet Volume 9.6 fL (7.4-10.4); Monocytes # (auto) 1.29 K/uL (0.11-0.59); Monocytes % (auto) 11.2 %; Neutrophils # (auto) 9.31 K/uL (1.4-6.5); Neutrophils % (auto) 81.1 %; Platelet Count 244 K/uL (130-400); RDW Coefficient of Variation 14.2 % (11.5-14.5); Red Blood Count 5.65 M/uL (4.7-6.1); White Blood Count 11.49 K/uL (4.8-10.8)
[2021-06-18 06:22] LABS: Albumin Level 2.6 gm/dl (3.4-5.0); BUN Creatinine Ratio 23.1 (10-20); Calcium 8.7 mg/dl (8.5-10.1); Creatinine Clr Calc Pharmacy 91.5 ml/min; Est GFR (African American) 76.8 ml/min; Est GFR (Non-African American) 66.3 ml/min; Magnesium 2.3 mg/dl (1.8-2.4); Potassium 4.2 mmol/L (3.5-5.1)
[2021-06-18 06:25] LABS: Albumin Globulin Ratio 0.7 (0.9-2); Bilirubin,Total 1.1 mg/dl (0.2-1); Globulin 3.5 gm/dl (2.5-4.0); Phosphorus 5.1 mg/dl (2.5-4.9); Total Protein 6.1 gm/dl (6.4-8.2)
[2021-06-18] MEDS: ICU ELECTROLYTE REPLACEMENT PROTOCOL SCH ×2 (06:32→17:58)
[2021-06-18] MEDS ORDERED: FORMOTEROL 20 MCG/2 ML VIAL NEB SCH (07:00)
--- NOTE | 2021-06-18 07:30 | Critical Care Progress Note ---
Date of Service June 18, 2021 Assessment & Plan (1) Acute hypercapnic respiratory failure: (2) Acute hypoxemic respiratory failure: (3) COVID-19: (4) Cor pulmonale: (5) Bilateral lower leg cellulitis: (6) Obesity: Plan: Impression: 60-year-old male with medical history that is not entirely complete at this point time presenting to the emergency room with hypoxemic hypercarbic respiratory failure. May be secondary to underlying obstructive lung disease. He is found to be Covid positive but has minimal parenchymal disease on his CT scan. He has evidence of pulmonary hypertension and likely has obesity hypoventilation syndrome. 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 24-hour events: Patient presented to the emergency room. He was intubated. He is transferred to the ICU. He was diuresed overnight. Has had some decrease in his oxygen requirement. His hemodynamics have remained stable. He had a profound diuresis with Lasix putting out approximately 8 L of urine in the last 24 hours. Recommendations: 1. Neurologic: Continue sedation with propofol. Use fentanyl and Precedex as well as needed to keep the patient sedated. We will try and avoid benzodiazepines given potential delirium. The patient reportedly has a history of alcohol abuse. Will initiate thiamine and folate as well. At risk for alcohol withdrawal which should be covered by propofol currently 2. Pulmonary: Hypoxemic and hypercarbic respiratory failure: Metabolic alkalosis this morning. See comments below. Continue bronchodilators in the form of Perforomist and budesonide nebulized and as needed DuoNeb's. Continue steroids with dexamethasone 6 mg daily. I am not sure that the patient has Covid significantly contributing to his respiratory failure. He may need to be extubated to BiPAP and may require CPAP or BiPAP going forward until outpatient polysomnography can be completed. Weight loss paramount. I suspect tracheomalacia as well. Once his FiO2 is below 50% and PEEP is below 8, will consider SBT and potential extubation. 3. Cardiovascular: Cor pulmonale, likely secondary to undiagnosed or untreated sleep disordered breathing/obesity hypoventilation syndrome. Echocardiogram pending Suspect diastolic dysfunction as well. Aggressive blood pressure control and diuresis. Hold on cardiology consult until echocardiogram is done. Hold additional IV fluids. Will administer free water via OG tube 4. Endocrine: Glycemic control per protocol. Check hemoglobin A1c. 5. ID: Patient was initiated on broad-spectrum antibiotics for presumed cellulitis - zosyn and daptomycin. His white blood cell count is improved today. Its difficult to ascertain whether these are chronic venous stasis changes or whether they represent infection. Will use steroids to treat potential obstructive lung disease which should cover for Covid however his CRP is not high enough to justify other immune modulatory medications. Check respiratory culture. His procalcitonin was negative. Depending on clinical course may be able to de-escalate or discontinue antibiotics in the next 24 hours. 6. Renal: Hyponatremia improved today with diuresis. Likely hypervolemic hyponatremia continue to follow as his fluid status is normalized. Will initiate electrolyte ICU replacement protocol given diuretics. Ventilator adjusted given his alkalosis. I suspect his resting PCO2 is somewhere in the 60s. We will follow his acid-base status with appropriate ventilation. Hold additional Lasix and will give Diamox today. Shoot for net -1 to 2 L 7. GI: N.p.o. for now. Cirrhotic appearance of liver on CT scan suggestive of chronic passive congestion from cor pulmonale. Check INR 9. Prophylaxis: Lovenox. Add H2 rose Patient remains critically ill at this point time with significant possibility of clinical deterioration. No family immediately available. A total of 46 minutes in critical care time was spent in evaluation management stabilization of this patient. This includes discussion with bedside critical care nurse and on multidisciplinary rounds. Admission and Anticipated Discharge Date Admission Date: June 17, 2021 Subjective intubated and sedated Review of Systems Review of Systems: Unobtainable due to endotracheal tube Physical Exam Constitutional: + morbidly obese Neck: trachea midline, no thyromegaly Cardiovascular: Rate/Rhythm: regular rate Heart Sounds: normal S1 and normal S2 Extremities: + edema Gastrointestinal (Abdomen): normal bowel sounds, soft, nontender, no hepatosplenomegaly Musculoskeletal: Extremities: extremities normal to inspection Lymphatic: no cervical lymphadenopathy Results & Data Results & Data ([facility]) Vital Signs (Past 12 Hours) Vital Signs Temp Pulse Resp BP Pulse Ox 06/18/21 06:30 37.3 C 62 16 91 06/18/21 06:00 37.4 C 63 16 125/73 90 06/18/21 05:30 37.4 C 64 16 91 06/18/21 05:00 37.4 C 66 16 143/90 H 89 L 06/18/21 04:30 37.5 C 66 16 90 06/18/21 04:20 16 06/18/21 04:00 37.5 C 69 22 141/85 H 87 L 06/18/21 03:30 37.3 C 70 22 134/83 88 L 06/18/21 03:00 37.1 C 68 22 87 L 06/18/21 02:59 62 06/18/21 02:30 36.9 C 66 22 140/84 89 L 06/18/21 02:24 67 22 89 L 06/18/21 02:00 36.7 C 65 22 140/84 86 L 06/18/21 01:30 36.6 C 63 22 89 L 06/18/21 01:00 36.4 C L 66 22 139/82 86 L 06/18/21 00:30 36.3 C L 62 22 89 L 06/18/21 00:00 36.1 C L 62 22 145/90 H 89 L 06/17/21 23:30 36.0 C L 67 22 91 06/17/21 23:08 66 22 91 06/17/21 23:00 35.9 C L 61 22 145/87 H 89 L 06/17/21 22:30 35.9 C L 60 22 90 06/17/21 22:00 35.8 C L 62 22 136/90 90 06/17/21 21:30 35.9 C L 62 22 91 06/17/21 21:00 35.9 C L 64 22 153/97 H 93 06/17/21 20:30 35.9 C L 64 22 95 06/17/21 20:00 36.0 C L 60 22 148/93 H 92 06/17/21 19:50 60 22 92 06/17/21 19:30 36.1 C L 63 22 94 Critical Care Results & Data Vital Signs (Past 12 Hours) Vital Signs Temp Pulse Resp BP Pulse Ox 06/18/21 06:30 37.3 C 62 16 91 06/18/21 06:00 37.4 C 63 16 125/73 90 06/18/21 05:30 37.4 C 64 16 91 06/18/21 05:00 37.4 C 66 16 143/90 H 89 L 06/18/21 04:30 37.5 C 66 16 90 06/18/21 04:20 16 06/18/21 04:00 37.5 C 69 22 141/85 H 87 L 06/18/21 03:30 37.3 C 70 22 134/83 88 L 06/18/21 03:00 37.1 C 68 22 87 L 06/18/21 02:59 62 06/18/21 02:30 36.9 C 66 22 140/84 89 L 06/18/21 02:24 67 22 89 L 06/18/21 02:00 36.7 C 65 22 140/84 86 L 06/18/21 01:30 36.6 C 63 22 89 L 06/18/21 01:00 36.4 C L 66 22 139/82 86 L 06/18/21 00:30 36.3 C L 62 22 89 L 06/18/21 00:00 36.1 C L 62 22 145/90 H 89 L 06/17/21 23:30 36.0 C L 67 22 91 06/17/21 23:08 66 22 91 06/17/21 23:00 35.9 C L 61 22 145/87 H 89 L 06/17/21 22:30 35.9 C L 60 22 90 06/17/21 22:00 35.8 C L 62 22 136/90 90 06/17/21 21:30 35.9 C L 62 22 91 06/17/21 21:00 35.9 C L 64 22 153/97 H 93 06/17/21 20:30 35.9 C L 64 22 95 06/17/21 20:00 36.0 C L 60 22 148/93 H 92 06/17/21 19:50 60 22 92 Lab & Micro Results (Past 24 Hours) RBC 5.65 M/uL (4.7-6.1) 06/18/21 WBC 11.49 K/uL (4.8-10.8) H 06/18/21 Hgb 17.0 g/dL (14.0-18.0) 06/18/21 Hct 50.1 % (42-52) 06/18/21 MCV 88.7 fL (80-100) 06/18/21 MCH 30.1 pg (25-34) 06/18/21 MCHC 33.9 g/dL (32-36) 06/18/21 RDW Standard Deviation 46.0 fL (36.4-46.3) 06/18/21 RDW Coefficient of Variation 14.2 % (11.5-14.5) 06/18/21 Plt Count 244 K/uL (130-400) 06/18/21 MPV 9.6 fL (7.4-10.4) 06/18/21 Neutrophils (%) (Auto) 81.1 % 06/18/21 Lymphocytes (%) (Auto) 7.0 % 06/18/21 Monocytes # (Auto) 1.29 K/uL (0.11-0.59) H 06/18/21 Eosinophils # (Auto) 0.00 K/uL (0-0.5) 06/18/21 Immature Granulocyte % (Auto) 0.6 % 06/18/21 Neutrophils # (Auto) 9.31 K/uL (1.4-6.5) H 06/18/21 Lymphocytes # (Auto) 0.81 K/uL (1.2-3.4) L 06/18/21 Monocytes # (Auto) 1.29 K/uL (0.11-0.59) H 06/18/21 Eosinophils # (Auto) 0.00 K/uL (0-0.5) 06/18/21 Basophils # (Auto) 0.01 K/uL (0-0.2) 06/18/21 Immature Granulocyte # (Auto) 0.07 K/uL (0.00-0.02) H 06/18/21 Na 133 mmol/L (136-145) L 06/18/21 K 4.2 mmol/L (3.5-5.1) 06/18/21 Cl 93 mmol/L (98-107) L 06/18/21 CO2 38 mmol/L (21-32) H 06/18/21 Anion Gap 2.0 (3-11) L 06/18/21 BUN 28 mg/dl (7-18) H 06/18/21 Creatinine 1.20 mg/dl (0.6-1.4) 06/18/21 Estimated GFR ( Amer) 76.8 ml/min 06/18/21 Estimated GFR (Non-Af Amer) 66.3 ml/min 06/18/21 BUN/Creatinine Ratio 23.1 (10-20) H 06/18/21 Glu 122 mg/dl (70-99) H 06/18/21 Ca 8.7 mg/dl (8.5-10.1) 06/18/21 Phosphorus Level 5.1 mg/dl (2.5-4.9) H 06/18/21 Total Bilirubin 1.1 mg/dl (0.2-1) H 06/18/21 Direct Bilirubin 0.8 mg/dl (0-0.2) H 06/17/21 AST 46 U/L (15-37) H 06/18/21 ALT 59 U/L (12-78) 06/18/21 Alkaline Phosphatase 99 U/L (45-117) 06/18/21 TP 6.1 gm/dl (6.4-8.2) L 06/18/21 Albumin 2.6 gm/dl (3.4-5.0) L 06/18/21 Globulin 3.5 gm/dl (2.5-4.0) 06/18/21 Albumin/Globulin Ratio 0.7 (0.9-2) L 06/18/21 Mg 2.3 mg/dl (1.8-2.4) 06/18/21 05:41 06/18/21 Calcium Level 8.7 mg/dl (8.5-10.1) 06/18/21 05:41 06/18/21 Venous Blood pH 7.19 (7.36-7.41) L 06/17/21 12:39 06/17/21 Venous Blood Partial Pressure CO2 94 mmHg (38-50) H 06/17/21 12:39 06/17/21 Venous Blood Partial Pressure O2 86 mmHg 06/17/21 12:39 06/17/21 Venous Blood HCO3 35 mmol/L 06/17/21 12:39 06/17/21 Venous Blood Base Excess 2.8 mEq/L 06/17/21 12:39 06/17/21 Venous Blood Oxygen Saturation 95.0 % 06/17/21 12:39 06/17/21 Blood Gas Barometric Pressure 735.8 mm/Hg 06/17/21 15:30 06/17/21 Arterial Blood pH 7.14 (7.35-7.45) L* 06/17/21 15:30 06/17/21 Arterial Blood Partial Pressure CO2 104 mmHg (35-46) H 06/17/21 15:30 06/17/21 Arterial Blood Partial Pressure O2 74 mmHg (80-95) L 06/17/21 15:30 06/17/21 Arterial Blood HCO3 35 mmol/L (19-24) H 06/17/21 15:30 06/17/21 Arterial Blood Base Excess 1.3 mEq/L (-9-1.8) 06/17/21 15:30 06/17/21 Arterial Blood Oxygen Saturation 92.7 % (90-95) 06/17/21 15:30 06/17/21 Blood Gas Oxygen Given 60% 06/17/21 15:30 06/17/21 Ivan Test Pass 06/18/21 04:19 06/18/21 Blood Gas Barometric Pressure 735.8 mm/Hg 06/17/21 15:30 06/17/21 Diagnostic Findings (Past 24 Hours) Chest CTA 06/17/21 13:25 CT ANGIOGRAM OF THE CHEST CLINICAL HISTORY: Dyspnea. Dizziness. COMPARISON STUDY: Chest CT dated 04/07/2006. TECHNIQUE: Following the IV administration of 119 cc of Optiray 320, CT angiogram of the chest was performed from the upper abdomen to the thoracic inlet utilizing the pulmonary embolus protocol. Images are reviewed in the axial, sagittal, and coronal planes. 3-D MIPS images are created and assessed. IV contrast was administered without complication. A dose lowering technique was utilized adhering to the principles of ALARA. CT DOSE: 2164.61 mGy.cm FINDINGS: Thyroid: Mildly enlarged and heterogeneous. Thoracic aorta: The thoracic aorta is normal in caliber and demonstrates standard 3-vessel arch anatomy. No dissection is seen. Pulmonary vasculature: The pulmonary trunk is dilated, measuring up to 4.2 cm diameter. This suggests pulmonary artery hypertension. There are no filling defects identified in main, lobar, or proximal segmental pulmonary branches to suggest pulmonary embolus. Evaluation of the peripheral branches is degraded by motion artifact and suboptimal contrast opacification. Heart: The heart is markedly enlarged and without pericardial effusion. Lungs and pleural spaces: Evaluation of the lung parenchyma is degraded by motion artifact. There is a small right pleural effusion with associated right basilar consolidation. Fluid is seen tracking along the right major fissure. Atelectasis is noted at the left lung base. The trachea and central airways are clear. Mediastinum: There are numerous mildly enlarged mediastinal nodes which measure up to 11 mm in short axis. Nathaly: Enlarged hilar nodes measure up to 15 mm short axis. Axillae: There is no axillary lymphadenopathy. Upper abdomen: The liver is cirrhotic in morphology and heterogeneous in attenuation. There is a small to moderate volume of perihepatic ascites. D iverticulosis is noted in the partially imaged left colon. A gastrohepatic lymph node on image #31 measures 2.0 x 1.5 cm. There is a small hiatal hernia. Skeletal structures: The skeletal structures are osteopenic. Spondylotic change is noted throughout the thoracic spine. There are healed left-sided rib fractures. No lytic or blastic bony lesions are seen. IMPRESSION: 1. Motion degraded examination. 2. There is no evidence of central pulmonary embolus in the main, lobar, or pr oximal segmental pulmonary arteries. 3. Marked cardiomegaly with evidence of pulmonary artery hypertension. 4. Small right pleural effusion with right basilar consolidation. This could represent atelectasis and/or pneumonia and clinical correlation will be required. 5. Cirrhotic liver morphology with upper abdominal ascites. 6. Mildly enlarged mediastinal and hilar nodes may be reactive. 7. There is a pathologically enlarged gastrohepatic node. This is nonspecific and neoplasm is not excluded. ACT 112: Negative or not required by law. Electronically signed by: Murray Abdalla M.D. 06/17/2021 2:[address] 06/17/21 13:25 CT head/brain wo con CLINICAL HISTORY: fall head injury . Pain, dizziness and blurred vision. Intermittent arm numbness COMPARISON STUDY: 05/24/2006 CT DOSE: TECHNIQUE: Standard CT of the Brain was performed without IV contrast. A dose lowering technique was utilized adhering to the principles of ALARA. FINDINGS: Extraaxial space: There is no evidence for subdural hematoma. There are no extra-axial fluid collections. Ventricles and cisterns: The ventricles are normal in size and configuration. There is no evidence for midline shift or mass effect. Parenchyma: There is no subarachnoid or intraparenchymal hemorrhage. There is no evidence for an acute infarct or cerebral edema. There is homogeneous attenuation of the brain parenchyma. There are no gross mass lesions. Osseous structures: There is no evidence for an acute fracture. The visualized paranasal sinuses are clear. The mastoid air cells are clear bilaterally. Soft tissues: There is no evidence for focal soft tissue swelling. IMPRESSION: No acute intracerebral pathology. ACT 112: Negative or not required by law. Electronically signed by: Saleem Templeton M.D. 06/17/2021 2:12 PM Chest X-Ray 06/17/21 15:35 XR chest 1V portable CLINICAL HISTORY: post intubation TECHNIQUE: Single frontal radiograph of the chest was obtained. Comparison: Comparison is made to chest one view 04/06/2016 FINDINGS: Endotracheal tube terminates 7.5 cm from the marian. Cardiomegaly is noted. Milena ngs are underinflated but clear. Bilateral retrocardiac opacities are seen. IMPRESSION: Satisfactory position of endotracheal tube. Redemonstration of cardiomegaly. Bilateral retrocardiac opacities may represent atelectasis, pneumonia, and/or aspiration. ACT 112: Negative or not required by law. Electronically signed by: Zachary Duarte M.D. 06/17/2021 4:06 PM KUB X-Ray 06/17/21 19:38 KUB CLINICAL HISTORY: og tube placement COMPARISON STUDY: Chest radiograph June 17, 2021 at 3:27 PM. FINDINGS: Tip of nasogastric tube is within the body of the stomach. Small bilateral pleural effusions are noted. Bibasilar opacities are present. Old left rib fractures are incidentally noted. Visualized bowel gas pattern is unremar kable. Cardiomegaly is present. IMPRESSION: Tip of nasogastric tube within the body of the stomach. ACT 112: Negative or not required by law. Electronically signed by: Isidro Lopez M.D. 06/17/2021 8:23 PM I & O Totals 24 Hours 06/17/21 06/18/21 06/19/21 06:59 06:59 06:59 Intake Total 662.550 / 662.550 208.910 / 208.910 Output Total 9800 / 9800 Balance -9137.450 / -9137.450 208.910 / 208.910 Cumulative 06/17/21 11:54 thru 06/18/21 07:11 Intake Total 871.460 Output Total 9800 Balance -8928.540 RT Ventilator Mngmt (Last Documented) Ventilator Ordered Settings Ventilator Support Mode Assist Control 06/18/21 04:20 Respiratory Rate 16 06/18/21 06:30 Ventilator Tidal Volume 440 06/18/21 04:00 Setting Minute Ventilation 9.6 06/18/21 02:24 Positive End Expiratory 10 06/18/21 04:00 Pressure Fraction of Inspired Oxygen 70 06/18/21 05:00 Machine Comment RR decreased to 16 post ABG per 06/18/21 04:20 [employer] Ventilator - PT Measurements Respiratory Rate 16 Exhaled Tidal Volume 440 Minute Ventilation 9.6 Peak Inspiratory Airway 24 Pressure Plateau Pressure 21.4 Respiratory Cycle Inspiratory: 1:2.4 Expiratory Ratio Inspiratory Phase Time 0.9 End-Tidal CO2 45 Static Lung Compliance 38.60 Dynamic Lung Compliance 31.43 Normal Static Lung Compliance 47.00 Patient Measurements Comment pt lavaged and suctioned at this time for desaturation, mod amount suctioned. FiO2 increased at this time Coding Level of Care Code Critical Care 1st 30-74 mins Diagnoses Acute hypercapnic respiratory failure J96.02 Acute hypoxemic respiratory failure J96.01 COVID-19 U07.1 Cor pulmonale I27.81 Bilateral lower leg cellulitis L03.116; L03.115 Obesity E66.9 Time Spent (min) 48
[2021-06-18] MEDS: BUDESONIDE 0.5 MG/2 ML VIAL (PULMICORT) NEB SCH ×2 (07:39→20:49)
[2021-06-18] MEDS: FORMOTEROL 20 MCG/2 ML VIAL NEB SCH ×2 (07:39→20:49)
[2021-06-18] MEDS: TUBE FEEDING WATER FLUSH GT SCH ×5 (08:06→23:07)
[2021-06-18] MEDS: ENOXAPARIN INJ 40 MG/0.4 ML SYR SQ SCH ×2 (08:06→18:03)
[2021-06-18 08:36] LABS: INR 1.3 (0.9-1.1); Prothrombin Time 12.6 Seconds (9.0-12.0)
[2021-06-18] MEDS: FAMOTIDINE 20 MG TAB PO SCH (08:57)
[2021-06-18] MEDS: FOLIC ACID 1 MG TAB PO SCH (08:57)
[2021-06-18] MEDS: acetaZOLAMIDE 250 MG TAB PO SCH ×2 (08:57→20:48)
[2021-06-18] MEDS: THIAMINE HCL 200 MG in SODIUM CHLORIDE 0.9% 50 ML IV SCH ×2 (08:57→20:48)
--- NOTE | 2021-06-18 10:41 | XRay Report ---
SINGLE VIEW CHEST CLINICAL HISTORY: Respiratory failure. FINDINGS: 2 AP, portable, upright chest radiographs are compared to study dated 06/17/2021. Correlati on is made with chest CT dated 06/17/2021 and KUB dated 06/17/2021. An endotracheal tube an enteric t ube are likely unchanged in position. Note that the tip of the enteric tube is not well visualized. T he heart is enlarged noting atherosclerotic calcification of the thoracic aorta. The pulmonary vascul ature is noncongested. There are small pleural effusions with bibasilar consolidation. No pneumothora x is seen. The skeletal structures are osteopenic. There are healed left-sided rib fracture. IMPRESSION: 1. Stable lines and tubes. 2. Cardiomegaly. 3. Small pleural effusions with bibasilar consolidation ACT 112: Negative or not required by law. Electronically signed by: Murray Abdalla M.D. 06/18/2021 10:40 AM
[2021-06-18 12:20] LABS: Estimated Average Glucose 140 mg/dl; Hemoglobin A1C 6.5 % (4.5-5.6)
[2021-06-18] MEDS ORDERED: DAPTOmycin 400 MG in SYRINGE 0 ML IV SCH (14:00)
[2021-06-18] MEDS: fentaNYL DRIP 1,250 MCG/250 ML BAG IV SCH (15:53)
--- NOTE | 2021-06-18 16:06 | Hospitalist Progress Note ---
Date of Service June 18, 2021 Assessment & Plan (1) Acute hypoxemic respiratory failure: Plan: Patient is 60 y/o M with PMH venous insufficiency, tobacco use, dyslipidemia, h/o impaired fasting glucose, obesity presented to ER with c/o SOB x 3 days. Acute hypoxic respiratory failure with hypercarbia Multifactorial likely secondary to obesity hypoventilation syndrome, may have obstructive lung disease, cor pulmonale and complicated by COVID-19 infection Required intubation in the emergency room Remains intubated and sedated Appreciate engraver pantograph input and recommendation (2) Acute hypercapnic respiratory failure: Plan: As above (3) COVID-19: Plan: Not sure about vaccination status Has been complaining of increasing shortness of breath for the last 3 days PA chest did not show any pulmonary embolism but did show small right pleural effusion and minimal bibasilar consolidation Has been on intravenous dexamethasone but no remdesivir and/or other medications (4) Fluid overload: Plan: Likely has cor pulmonale with cardiomegaly, leg edema and small right pleural effusion Noted to have fluid overload with component of cor pulmonale CTA did not show cardiomegaly and small right pleural effusion No overt pulmonary congestion Receiving dose of Lasix to improve fluid overload (5) Bilateral lower leg cellulitis: Plan: History of venous insufficiency Has bilateral leg cellulitis with a few ulcerations involving the leg skin In ER given Zosyn and Dapto Continue antibiotics DVT Prophylaxis -Lovenox No family members are available to discuss the case Admission and Anticipated Discharge Date Admission Date: June 17, 2021 Supervising Physician Co-Signing Physician Notes Attending addendum: The patient was seen and examined in emergency room following emergency intubation and sedation He is a 60-year-old obese male with significant past medical history of tobacco use disorder, venous insufficiency, impaired fasting glucose, hyperlipidemia and tobacco use disorder apparently has been complaining of shortness of breath for the last 3 days associated with chest tightness and cough. History of possible syncope episode 2 days ago with minor head injury. Noted to be in acute respiratory failure with hypoxia and hypercarbia and required initial BiPAP administration and followed by emergency intubation and sedation He was noted to be positive for COVID-19 virus as well Try to call his home number without any response and no other family members were available to discuss about him He was admitted to ICU for continuation of care On examination Remains intubated and sedated Hemodynamically stable Chest-decreased breath sounds at the bases with right basilar crackles Heart-S1-S2, regular Abdomen-distended, soft, possible mild to moderate ascites, bowel sound present Extremities-1+ edema bilaterally, chronic skin changes bilaterally, redness and ulcerations at few places both the lower extremities [employer]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 Admission labs, EKG and imaging studies reviewed Required emergency intubation and sedation Has possible right lower lobe pneumonia with COVID-19 infection Bilateral leg cellulitis Possible CHF Has been started with intravenous Zosyn and daptomycin Received a dose of dexamethasone and willnot start remdesivir and further management as per engraver pantograph Director Chemistry consulted Agree with assessment and plan as outlined above by SINA Watkins DR 06/18/2021 The patient was seen and examined in ICU and in the Covid room He remains intubated and sedated Opens eyes with command Review of Systems Review of Systems: Unobtainable due to endotracheal tube Physical Exam Physical Exam: Lying in bed with mechanical ventilator and sedation Constitutional: well developed, well nourished, + ill appearing and + obese Eyes: Closed Neck: trachea midline, no thyromegaly Respiratory: no respiratory distress Auscultation: + diminished lung sounds and + crackles (Minimal crackles at the bases) Cardiovascular: Rate/Rhythm: regular rate and regular rhythm; not tachycardic Heart Sounds: normal S1 and normal S2; no murmur Extremities: + edema ( Trace 1+ edema bilaterally with chronic skin changes and a few skin ulcer) Gastrointestinal (Abdomen): Inspection/Auscultation: + abdomen distended and normal bowel sounds Neurologic: Remains on mechanical ventilator and sedated Results & Data Results & Data ([facility]) Vital Signs (Past 12 Hours) Vital Signs Temp Pulse Resp BP BP Pulse Ox Pulse Ox 06/18/21 13:00 116/70 06/18/21 12:00 116/68 06/18/21 11:08 61 16 91 06/18/21 11:00 123/77 06/18/21 10:00 37.1 C 61 16 119/70 06/18/21 09:30 37.2 C 62 17 92 06/18/21 09:00 37.2 C 68 16 124/71 124/72 92 06/18/21 08:30 37.3 C 61 16 91 06/18/21 08:00 37.3 C 62 16 123/78 92 06/18/21 07:30 37.3 C 62 16 92 06/18/21 07:00 37.3 C 62 16 130/81 90 06/18/21 06:30 37.3 C 62 16 91 06/18/21 06:00 37.4 C 63 16 125/73 90 06/18/21 05:30 37.4 C 64 16 91 06/18/21 05:00 37.4 C 66 16 143/90 H 89 L 06/18/21 04:30 37.5 C 66 16 90 06/18/21 04:20 16 06/18/21 04:00 37.5 C 69 22 141/85 H 87 L Laboratory Results Short CBC 06/18/21 Range/Units 05:41 WBC 11.49 H (4.8-10.8) K/uL Hgb 17.0 (14.0-18.0) g/dL Hct 50.1 (42-52) % Plt Count 244 (130-400) K/uL BMP 06/18/21 05:41 Sodium 133 L Potassium 4.2 Chloride 93 L Carbon Dioxide 38 H BUN 28 H Creatinine 1.20 Glucose 122 H Calcium 8.7 Liver Function 06/18/21 Range/Units 05:41 Total Bilirubin 1.1 H (0.2-1) mg/dl AST 46 H (15-37) U/L ALT 59 (12-78) U/L Alkaline Phosphatase 99 (45-117) U/L Albumin 2.6 L (3.4-5.0) gm/dl Urine 06/17/21 Range/Units 15:58 Urine Color Dark Yellow Urine Appearance Clear (Clear) Urine pH 5.5 (4.5-7.5) Ur Specific [place] > 1.045 H (1.000-1.030) Urine Protein 2+ H (Negative) Urine Glucose (UA) Negative (Negative) Medications Administered Current Inpatient Medications Acetazolamide (Acetazolamide 250 Mg Tab) 250 mg PO BID [facility] Stop: 06/18/21 21:01 Last Admin: 06/18/21 08:57 Dose: 250 mg Documented by: Albuterol (Albut/Ipratrop 3mg/0.5mg Neb 3 Ml Vial) 3 ml NEB Q4R PRN PRN Reason: Shortness Of Breath Or Wheezing Stop: 07/17/21 22:59 Budesonide (Budesonide 0.5 Mg/2 Ml Vial (Pulmicort)) 0.5 mg NEB BIDR [facility] Stop: 07/18/21 06:59 Last Admin: 06/18/21 07:39 Dose: 0.5 mg Documented by: Enoxaparin Sodium (Enoxaparin Inj 40 Mg/0.4 Ml Syr) 40 mg SQ Q12H [facility] Stop: 07/17/21 18:59 Last Admin: 06/18/21 08:06 Dose: 40 mg Documented by: Famotidine (Famotidine 20 Mg Tab) 20 mg PO QAM [facility] Stop: 07/18/21 08:59 Last Admin: 06/18/21 08:57 Dose: 20 mg Documented by: Fentanyl Citrate (Fentanyl Citrate 100 Mcg/2 Ml Vial) 50 mcg IV Q2H PRN PRN Reason: Moderate Pain (4,5,6) on NRS Stop: 07/01/21 16:11 Fentanyl Citrate (Fentanyl Bolus From Bag) 50 mcg IV Q60M PRN PRN Reason: Pain or Agitation Stop: 07/01/21 16:11 Last Admin: 06/18/21 04:17 Dose: 50 mcg Documented by: Folic Acid (Folic Acid 1 Mg Tab) 1 mg PO QAM [facility] Stop: 07/18/21 08:59 Last Admin: 06/18/21 08:57 Dose: 1 mg Documented by: Formoterol Fumarate (Formoterol 20 Mcg/2 Ml Vial) 20 mcg NEB BIDR [facility] Stop: 07/18/21 06:59 Last Admin: 06/18/21 07:39 Dose: 20 mcg Documented by: Furosemide (Furosemide 40 Mg/4 Ml Vial) 40 mg IV BID [facility] Stop: 07/17/21 20:59 Last Admin: 06/17/21 20:11 Dose: 40 mg Documented by: Hydralazine HCl (Hydralazine Hcl 20 Mg/Ml Vial) 10 mg IV Q4 PRN PRN Reason: Hypertension sbp>160 Stop: 07/17/21 16:16 Propofol (Diprivan) 1,000 mg in 100 mls @ 15.54 mls/hr IV .Q6H27M [facility]; Protocol Stop: 06/20/21 16:14 Last Admin: 06/18/21 14:58 Dose: 20 mcg/kg/min, 15.5 mls/hr Documented by: Dexmedetomidine HCl 200 mcg/ (Sodium Chloride) 50 mls @ 9.713 mls/hr IV .Q5H9M [facility]; Protocol Stop: 06/21/21 17:14 Last Admin: 06/18/21 12:43 Dose: 0.3 mcg/kg/hr, 9.7 mls/hr Documented by: Fentanyl Citrate (Fentanyl Drip) 1,250 mcg in 250 mls @ 10 mls/hr IV .Q25H [facility]; Protocol Stop: 07/01/21 16:14 Last Titration: 06/18/21 07:11 Dose: 50 mcg/hr, 10 mls/hr Documented by: Piperacillin Sod/Tazobactam (Sod 4.5 gm/ Dextrose) 120 mls @ 30 mls/hr IV Q8H [facility]; Protocol Stop: 06/24/21 19:59 Last Admin: 06/18/21 12:02 Dose: 30 mls/hr Documented by: Daptomycin 400 mg/ Syringe 8 mls @ 4 mls/min IV Q24H [facility]; Protocol Stop: 06/25/21 13:59 Last Admin: 06/18/21 13:14 Dose: 4 mls/min Documented by: Thiamine HCl 200 mg/ Sodium (Chloride) 52 mls @ 208 mls/hr IV BID [facility] Stop: 07/18/21 08:59 Last Infusion: 06/18/21 10:14 Dose: Infused Documented by: Miscellaneous (Icu Electrolyte Replacement Protocol) 1 ea N/A BID@06,18 [facility]; Protocol Stop: 06/24/21 17:59 Last Admin: 06/18/21 06:32 Dose: Not Given Documented by: Miscellaneous (I[facility] Protocol For Hyperglycemia) 1 ea N/A PRN PRN; Protocol PRN Reason: Hyperglycemia Protocol Stop: 06/19/21 16:11 Miscellaneous ([facility] Protocol For Hyperglycemia) 1 ea N/A PRN PRN; Protocol PRN Reason: Hyperglycemia Protocol Stop: 06/19/21 17:37 Miscellaneous Information (Piperacill/Tazobac Consult Active) 1 ea N/A UD PRN PRN Reason: Consult Stop: 07/17/21 14:08 Miscellaneous Information (Daptomycin Consult Active) 1 ea N/A UD PRN PRN Reason: Consult Stop: 07/17/21 14:08 Propofol (Propofol Bolus From Bag) 20 mg IV Q5M PRN PRN Reason: Sedation Stop: 06/20/21 16:11 Last Admin: 06/18/21 04:50 Dose: 20 mg Documented by: Sterile Water (Tube Feeding Water Flush) 30 ml GT Q4H [facility] Stop: 07/18/21 07:59 Last Admin: 06/18/21 12:03 Dose: 30 ml Documented by:
--- NOTE | 2021-06-18 19:22 | Electrocardiogram Report ---
Test Reason : Blood Pressure : / mmHG Vent. Rate : 082 BPM Atrial Rate : 082 BPM P-R Int : 162 ms QRS Dur : 136 ms QT Int : 406 ms P-R-T Axes : 055 -81 109 degrees QTc Int : 474 ms Sinus rhythm with occasional Premature ventricular complexes Possible Left atrial enlargement Right bundle branch block Left anterior fascicular block Bifascicular block Lateral infarct (cited on or before 06-APR-2006) Abnormal ECG When compared with ECG of 06-APR-2006 09:27, Premature ventricular complexes are now Present Left anterior fascicular block is now Present Borderline criteria for Inferior infarct are no longer Present Confirmed by John Maldonado ([id number]) on 06/18/2021 7:22:37 PM Referred By: REFERRED SELF Confirmed By:John Maldoando
[2021-06-19] MEDS ORDERED: PANTOPRAZOLE BOLUS/DRIP 1 EA IV STA (00:10)
[2021-06-19] MEDS ORDERED: PANTOprazole 80 MG in DEXTROSE 5% 100 ML IV ONE (00:15)
[2021-06-19] MEDS ORDERED: OCTREOTIDE ACETATE 50 MCG in SYRINGE 9.5 ML IV STA (00:16)
--- NOTE | 2021-06-19 00:17 | Communication Note ---
Date of Service: June 19, 2021 0005: Informed by nursing staff that the patient was having bright red output from his OG tube. Orders placed for repeat H&H as well as repeat INR and type/screen. I did assess the patient at bedside. He does appear to be putting out very dark bilious material from his OG tube. Gastric occult samples obtained and found to be positive. Patient started on PPI bolus and drip as well as octreotide bolus and drips. Patient is an alcoholic with unknown underlying gastropathy. H&H remained stable. No persistent significant blood noted at this time. Continue with octreotide and PPI at this time. Will hold on Protonix. Consult placed for GI. Will hold on SBT in the morning pending GI assessment for possible scoping. I have personally spent 32 minutes of critical care time in the direct management of this patient. This is a life/limb threatening event. This includes time spent evaluating patient, direct bedside care, chart review, placing orders, interpretation of diagnostic studies, discussion with consultants, patient, and family members, as well as other required patient management activities. This time is exclusive of all separately billable procedures, and teaching time and separate from and in addition to any other critical care service time. Coding Level of Care Code Critical Care 1st 30-74 mins Time Spent (min) 32
[2021-06-19 00:22] LABS: Gastric Occult Blood Positive (Negative)
[2021-06-19 00:23] LABS: pH Gastric Fluid 2
[2021-06-19 00:37] LABS: Hematocrit (blood only) 51.9 % (42-52); Hemoglobin 16.8 g/dL (14.0-18.0)
[2021-06-19] MEDS: OCTREOTIDE ACETATE 500 MCG in 0.9 % SODIUM CHLORIDE 100 ML IV SCH ×3 (00:46→20:30)
[2021-06-19] MEDS: PANTOprazole 40 MG in DEXTROSE 5% 100 ML IV SCH ×5 (00:47→18:40)
[2021-06-19] MEDS: PIPERACILLIN/TAZOBACTAM 4.5 GM in DEXTROSE 5% 100 ML IV SCH (03:36)
[2021-06-19] MEDS: propofoL 1,000 MG/100 ML VIAL IV SCH ×2 (03:36→09:53)
[2021-06-19] MEDS: TUBE FEEDING WATER FLUSH GT SCH ×5 (05:09→21:05)
[2021-06-19] MEDS: DEXMEDETOMIDINE HCL 200 MCG in SODIUM CHLORIDE 0.9% 48 ML IV SCH (05:16)
[2021-06-19 05:51] LABS: Basophils # (auto) 0.01 K/uL (0-0.2); Basophils % (auto) 0.1 %; Eosinophils # (auto) 0.07 K/uL (0-0.5); Eosinophils % (auto) 0.7 %; Hematocrit (blood only) 52.7 % (42-52); Hemoglobin 16.9 g/dL (14.0-18.0); Immature Granulocytes # (auto) 0.09 K/uL (0.00-0.02); Immature Granulocytes % (auto) 0.9 %; Lymphocytes # (auto) 1.42 K/uL (1.2-3.4); Lymphocytes % (auto) 13.6 %; Mean Corpuscular Hemoglobin 29.9 pg (25-34); Mean Corpuscular Hgb Conc 32.1 g/dL (32-36); Mean Corpuscular Volume 93.1 fL (80-100); Mean Platelet Volume 9.5 fL (7.4-10.4); Monocytes # (auto) 1.19 K/uL (0.11-0.59); Monocytes % (auto) 11.4 %; Neutrophils # (auto) 7.69 K/uL (1.4-6.5); Neutrophils % (auto) 73.3 %; Platelet Count 220 K/uL (130-400); RDW Coefficient of Variation 14.7 % (11.5-14.5); RDW Standard Deviation 49.6 fL (36.4-46.3); Red Blood Count 5.66 M/uL (4.7-6.1); White Blood Count 10.47 K/uL (4.8-10.8)
[2021-06-19 05:59] LABS: iSTAT Art Bld Gas pCO2 Correct 55 mmHg (35-46); iSTAT Art Bld Gas pH Corrected 7.416 (7.35-7.45); iSTAT Arterial Blood Gas HCO3 36 meg/L (19-24); iSTAT Arterial Blood Gas pCO2 55 mmHg (35-46); iSTAT Arterial Blood Gas pH 7.42 (7.35-7.45); iSTAT Arterial Blood Gas pO2 57 mmHg (80-95); iSTAT Arterial Blood Gas pO2 C 57; iSTAT Carbon Dioxide 37 mmol/L (24-31); iSTAT Hematocrit 53 % (42-52); iSTAT Potassium 3.7 mmol/L (3.3-5.0); iSTAT Site L Radial; iSTAT Sodium 136 mmol/L (135-144)
[2021-06-19 06:00] LABS: INR 1.1 (0.9-1.1)
[2021-06-19 06:09] LABS: Albumin Level 2.4 gm/dl (3.4-5.0); BUN Creatinine Ratio 18.7 (10-20); Calcium 8.7 mg/dl (8.5-10.1); Creatinine Clr Calc Pharmacy 91.5 ml/min; Est GFR (African American) 76.8 ml/min; Est GFR (Non-African American) 66.3 ml/min; Magnesium 2.8 mg/dl (1.8-2.4); Potassium 3.6 mmol/L (3.5-5.1)
[2021-06-19 06:16] LABS: Albumin Globulin Ratio 0.6 (0.9-2); Globulin 3.7 gm/dl (2.5-4.0); Phosphorus 4.1 mg/dl (2.5-4.9); Total Protein 6.1 gm/dl (6.4-8.2)
[2021-06-19] MEDS: FORMOTEROL 20 MCG/2 ML VIAL NEB SCH ×2 (06:59→19:48)
[2021-06-19] MEDS: BUDESONIDE 0.5 MG/2 ML VIAL (PULMICORT) NEB SCH ×2 (06:59→19:48)
[2021-06-19] MEDS: ICU ELECTROLYTE REPLACEMENT PROTOCOL SCH ×2 (08:17→18:21)
[2021-06-19] MEDS: POTASSIUM CHLORIDE / WTR 10 MEQ/100 ML PLCT IV SCH ×5 (09:04→12:01)
--- NOTE | 2021-06-19 09:05 | Gastrointestinal Consultation ---
Date of Consultation June 19, 2021 Assessment & Plan (1) COVID-19: 60 year old male admitted w/ respiratory failure, found COVID-19 positive, w/ coffee ground/maroon colored output from NG/OG with stable vitals and HGB. Cirrhotic liver on imaging No acute indication for EGD If decompensates or evidence of ongoing acute GI blood loss can consider EGD at that time Continue IV PPI and IV Octreotide for a total of 48 hours Then PO PPI BID Outpatient GI appt and outpatient EGD to be arranged Trend HGB Transfuse PRN Thank you for allowing us to participate in the care of this patient. Please call with any acute changes, questions or concerns. Please see addendum below with additional recommendation from my supervising physician. (2) Upper GI bleed: Supervising Physician Co-Signing Physician Notes I saw and evaluated the patient. The patient was mated with respiratory failure thought to be related to Covid induced pneumonia. An OG tube was placed and it appears there was some difficulty with it as he did have a small amount of maroon output with this. GI is consulted for evaluation of potential upper endoscopy. We are unable to obtain much historical information as the patient is presently intubated. Physical examination Intubated patient, no abdominal distention noted Impression: patient with a small amount of maroon output after placement of an orogastric tube. Based on the appearance and lack of drop in hemoglobin and hematocrit it appears this was likely related to local trauma. There is a question of cirrhosis based on imaging studies we would therefore recommend octreotide for 48 hours, continued use of Protonix twice daily and continued monitoring. Should the patient have any evidence of recurrent bleeding then endoscopic evaluation could certainly be considered. History of Present Illness Reason for Consultation: UGI bleed Requesting Physician: Mario Attending Physician: Calin Martin MD History of Present Illness 60 year old male with history of venous insufficiency, dyslipidemia, obesity presented to ER with c/o SOB x 3 days. In the ED w/ was COVID-19 + and quickly decompensated requiring intubation - GI asked to evaluate given blood in OG/NG output. Pt was seen and evaluated, chart reviewed. Care coordinated with ICU team. Allergies Allergy/AdvReac Type Severity Reaction Status Date / Time No Known Allergies Allergy Unknown Verified 04/06/06 15:02 Home Medications Medication Instructions Recorded Confirmed Type No Known Home Medications 06/17/21 06/17/21 History Patient History Medical History (Updated 06/19/21 @ 09:02 by TITO Brewster) Dyslipidemia Impaired fasting glucose Obesity Tobacco use Venous insufficiency Surgical History (Updated 06/17/21 @ 15:27 by Susan Weaver PA-C) History of arthroplasty of right knee History of bilateral total hip arthroplasty History of cranial surgery For epidural hematoma Hx of tonsillectomy Family History (Updated 06/17/21 @ 15:35 by Susan Weaver PA-C) Other Diabetes Social History Smoking Status: Current every day smoker Communication Ability: Sedated Feels Safe at Home: Yes Assistive Devices: Oxygen - Continuous Review of Systems Review of Systems: Unobtainable due to endotracheal tube Physical Exam Constitutional: well developed, well nourished, + ill appearing and + obese; no acute distress Respiratory: + intubated Cardiovascular: Rate/Rhythm: regular rate and regular rhythm Gastrointestinal (Abdomen): normal bowel sounds, soft, nontender, no hepatosplenomegaly Skin: no rashes, warm and dry Results & Data ([facility]) Vital Signs (Past 12 Hours) Vital Signs Temp Pulse Resp BP Pulse Ox 06/19/21 07:12 59 L 16 95 06/19/21 03:05 53 L 16 93 06/19/21 01:00 36.5 C 57 L 16 115/76 89 L 06/19/21 00:00 36.3 C L 53 L 16 06/18/21 23:40 53 L 16 92 06/18/21 23:00 36.3 C L 53 L 16 126/78 91 06/18/21 22:00 36.4 C L 57 L 16 121/76 90 06/18/21 21:00 36.4 C L 54 L 16 120/75 90 Laboratory Results 06/19/21 06/19/21 06/19/21 Range/Units Unknown 05:42 05:29 WBC (4.8-10.8) K/uL RBC (4.7-6.1) M/uL Hgb (14.0-18.0) g/dL POC Hgb 18.0 (14.0-18.0) g/dl Hct (42-52) % POC Hct 53 H (42-52) % MCV (80-100) fL MCH (25-34) pg MCHC (32-36) g/dL RDW Std Deviation (36.4-46.3) fL RDW Coeff of Rosanna (11.5-14.5) % Plt Count (130-400) K/uL MPV (7.4-10.4) fL Immature Gran % (Auto) % Neut % (Auto) % Lymph % (Auto) % [place] % (Auto) % Eos % (Auto) % Baso % (Auto) % Neut # (Auto) (1.4-6.5) K/uL Lymph # (Auto) (1.2-3.4) K/uL [place] # (Auto) (0.11-0.59) K/uL Eos # (Auto) (0-0.5) K/uL Baso # (Auto) (0-0.2) K/uL Immature Gran # (Auto) (0.00-0.02) K/uL PT 11.0 (9.0-12.0) Seconds INR 1.1 (0.9-1.1) Sample Site L Radial POC pH 7.42 (7.35-7.45) POC pCO2 55 H (35-46) mmHg POC pO2 57 L (80-95) mmHg POC HCO3 36 H (19-24) leslie/L POC Total CO2 37 H (24-31) mmol/L POC Base Excess 11.0 H (-9-1.8) leslie/L ABG pH (Temp Correct) 7.416 (7.35-7.45) ABG pCO2 (Temp Corrct 55 H (35-46) mmHg POC ABG pO2 at Pt Temp 57 POC ABG O2 Sat 89.0 L (90-95) % Ivan Test NA POC Sodium 136 (135-144) mmol/L Sodium (136-145) mmol/L POC Potassium 3.7 (3.3-5.0) mmol/L Potassium (3.5-5.1) mmol/L Chloride (98-107) mmol/L Carbon Dioxide (21-32) mmol/L Anion Gap (3-11) BUN (7-18) mg/dl Creatinine (0.6-1.4) mg/dl Est Cr Clr Drug Dosing ml/min Est GFR ( Amer) ml/min Est GFR (Non-Af Amer) ml/min BUN/Creatinine Ratio (10-20) Glucose (70-99) mg/dl POC Glucose (70-99) mg/dl Estimat Average Glucose mg/dl Hemoglobin A1c (4.5-5.6) % Calcium (8.5-10.1) mg/dl Phosphorus (2.5-4.9) mg/dl Magnesium (1.8-2.4) mg/dl Total Bilirubin (0.2-1) mg/dl AST (15-37) U/L ALT (12-78) U/L Alkaline Phosphatase (45-117) U/L Total Protein (6.4-8.2) gm/dl Albumin (3.4-5.0) gm/dl Globulin (2.5-4.0) gm/dl Albumin/Globulin Ratio (0.9-2) Gastric Fluid pH 2 Gastric Occult Blood Positive A (Negative) Blood Type Antibody Screen 06/19/21 06/19/21 06/19/21 Range/Units 05:24 05:24 00:25 WBC 10.47 (4.8-10.8) K/uL RBC 5.66 (4.7-6.1) M/uL Hgb 16.9 16.8 (14.0-18.0) g/dL POC Hgb (14.0-18.0) g/dl Hct 52.7 H 51.9 (42-52) % POC Hct (42-52) % MCV 93.1 (80-100) fL MCH 29.9 (25-34) pg MCHC 32.1 (32-36) g/dL RDW Std Deviation 49.6 H (36.4-46.3) fL RDW Coeff of Rosanna 14.7 H (11.5-14.5) % Plt Count 220 (130-400) K/uL MPV 9.5 (7.4-10.4) fL Immature Gran % (Auto) 0.9 % Neut % (Auto) 73.3 % Lymph % (Auto) 13.6 % [place] % (Auto) 11.4 % Eos % (Auto) 0.7 % Baso % (Auto) 0.1 % Neut # (Auto) 7.69 H (1.4-6.5) K/uL Lymph # (Auto) 1.42 (1.2-3.4) K/uL [place] # (Auto) 1.19 H (0.11-0.59) K/uL Eos # (Auto) 0.07 (0-0.5) K/uL Baso # (Auto) 0.01 (0-0.2) K/uL Immature Gran # (Auto) 0.09 H (0.00-0.02) K/uL PT (9.0-12.0) Seconds INR (0.9-1.1) Sample Site POC pH (7.35-7.45) POC pCO2 (35-46) mmHg POC pO2 (80-95) mmHg POC HCO3 (19-24) leslie/L POC Total CO2 (24-31) mmol/L POC Base Excess (-9-1.8) leslie/L ABG pH (Temp Correct) (7.35-7.45) ABG pCO2 (Temp Corrct (35-46) mmHg POC ABG pO2 at Pt Temp POC ABG O2 Sat (90-95) % Ivan Test POC Sodium (135-144) mmol/L Sodium 135 L (136-145) mmol/L POC Potassium (3.3-5.0) mmol/L Potassium 3.6 (3.5-5.1) mmol/L Chloride 96 L (98-107) mmol/L Carbon Dioxide 33 H (21-32) mmol/L Anion Gap 6.0 (3-11) BUN 22 H (7-18) mg/dl Creatinine 1.20 (0.6-1.4) mg/dl Est Cr Clr Drug Dosing 91.5 ml/min Est GFR ( Amer) 76.8 ml/min Est GFR (Non-Af Amer) 66.3 ml/min BUN/Creatinine Ratio 18.7 (10-20) Glucose 100 H (70-99) mg/dl POC Glucose (70-99) mg/dl Estimat Average Glucose mg/dl Hemoglobin A1c (4.5-5.6) % Calcium 8.7 (8.5-10.1) mg/dl Phosphorus 4.1 D (2.5-4.9) mg/dl Magnesium 2.8 H (1.8-2.4) mg/dl Total Bilirubin 1.0 (0.2-1) mg/dl AST 26 (15-37) U/L ALT 47 (12-78) U/L Alkaline Phosphatase 88 (45-117) U/L Total Protein 6.1 L (6.4-8.2) gm/dl Albumin 2.4 L (3.4-5.0) gm/dl Globulin 3.7 (2.5-4.0) gm/dl Albumin/Globulin Ratio 0.6 L (0.9-2) Gastric Fluid pH Gastric Occult Blood (Negative) Blood Type Antibody Screen 06/19/21 06/18/21 06/18/21 Range/Units 00:25 16:56 11:36 WBC (4.8-10.8) K/uL RBC (4.7-6.1) M/uL Hgb (14.0-18.0) g/dL POC Hgb (14.0-18.0) g/dl Hct (42-52) % POC Hct (42-52) % MCV (80-100) fL MCH (25-34) pg MCHC (32-36) g/dL RDW Std Deviation (36.4-46.3) fL RDW Coeff of Rosanna (11.5-14.5) % Plt Count (130-400) K/uL MPV (7.4-10.4) fL Immature Gran % (Auto) % Neut % (Auto) % Lymph % (Auto) % [place] % (Auto) % Eos % (Auto) % Baso % (Auto) % Neut # (Auto) (1.4-6.5) K/uL Lymph # (Auto) (1.2-3.4) K/uL [place] # (Auto) (0.11-0.59) K/uL Eos # (Auto) (0-0.5) K/uL Baso # (Auto) (0-0.2) K/uL Immature Gran # (Auto) (0.00-0.02) K/uL PT (9.0-12.0) Seconds INR (0.9-1.1) Sample Site POC pH (7.35-7.45) POC pCO2 (35-46) mmHg POC pO2 (80-95) mmHg POC HCO3 (19-24) leslie/L POC Total CO2 (24-31) mmol/L POC Base Excess (-9-1.8) leslie/L ABG pH (Temp Correct) (7.35-7.45) ABG pCO2 (Temp Corrct (35-46) mmHg POC ABG pO2 at Pt Temp POC ABG O2 Sat (90-95) % Ivan Test POC Sodium (135-144) mmol/L Sodium (136-145) mmol/L POC Potassium (3.3-5.0) mmol/L Potassium (3.5-5.1) mmol/L Chloride (98-107) mmol/L Carbon Dioxide (21-32) mmol/L Anion Gap (3-11) BUN (7-18) mg/dl Creatinine (0.6-1.4) mg/dl Est Cr Clr Drug Dosing ml/min Est GFR ( Amer) ml/min Est GFR (Non-Af Amer) ml/min BUN/Creatinine Ratio (10-20) Glucose (70-99) mg/dl POC Glucose 116 H 102 H (70-99) mg/dl Estimat Average Glucose mg/dl Hemoglobin A1c (4.5-5.6) % Calcium (8.5-10.1) mg/dl Phosphorus (2.5-4.9) mg/dl Magnesium (1.8-2.4) mg/dl Total Bilirubin (0.2-1) mg/dl AST (15-37) U/L ALT (12-78) U/L Alkaline Phosphatase (45-117) U/L Total Protein (6.4-8.2) gm/dl Albumin (3.4-5.0) gm/dl Globulin (2.5-4.0) gm/dl Albumin/Globulin Ratio (0.9-2) Gastric Fluid pH Gastric Occult Blood (Negative) Blood Type A Positive Antibody Screen NEGATIVE 06/18/21 Range/Units 08:04 WBC (4.8-10.8) K/uL RBC (4.7-6.1) M/uL Hgb (14.0-18.0) g/dL POC Hgb (14.0-18.0) g/dl Hct (42-52) % POC Hct (42-52) % MCV (80-100) fL MCH (25-34) pg MCHC (32-36) g/dL RDW Std Deviation (36.4-46.3) fL RDW Coeff of Rosanna (11.5-14.5) % Plt Count (130-400) K/uL MPV (7.4-10.4) fL Immature Gran % (Auto) % Neut % (Auto) % Lymph % (Auto) % [place] % (Auto) % Eos % (Auto) % Baso % (Auto) % Neut # (Auto) (1.4-6.5) K/uL Lymph # (Auto) (1.2-3.4) K/uL [place] # (Auto) (0.11-0.59) K/uL Eos # (Auto) (0-0.5) K/uL Baso # (Auto) (0-0.2) K/uL Immature Gran # (Auto) (0.00-0.02) K/uL PT (9.0-12.0) Seconds INR (0.9-1.1) Sample Site POC pH (7.35-7.45) POC pCO2 (35-46) mmHg POC pO2 (80-95) mmHg POC HCO3 (19-24) leslie/L POC Total CO2 (24-31) mmol/L POC Base Excess (-9-1.8) leslie/L ABG pH (Temp Correct) (7.35-7.45) ABG pCO2 (Temp Corrct (35-46) mmHg POC ABG pO2 at Pt Temp POC ABG O2 Sat (90-95) % Ivan Test POC Sodium (135-144) mmol/L Sodium (136-145) mmol/L POC Potassium (3.3-5.0) mmol/L Potassium (3.5-5.1) mmol/L Chloride (98-107) mmol/L Carbon Dioxide (21-32) mmol/L Anion Gap (3-11) BUN (7-18) mg/dl Creatinine (0.6-1.4) mg/dl Est Cr Clr Drug Dosing ml/min Est GFR ( Amer) ml/min Est GFR (Non-Af Amer) ml/min BUN/Creatinine Ratio (10-20) Glucose (70-99) mg/dl POC Glucose (70-99) mg/dl Estimat Average Glucose 140 mg/dl Hemoglobin A1c 6.5 H (4.5-5.6) % Calcium (8.5-10.1) mg/dl Phosphorus (2.5-4.9) mg/dl Magnesium (1.8-2.4) mg/dl Total Bilirubin (0.2-1) mg/dl AST (15-37) U/L ALT (12-78) U/L Alkaline Phosphatase (45-117) U/L Total Protein (6.4-8.2) gm/dl Albumin (3.4-5.0) gm/dl Globulin (2.5-4.0) gm/dl Albumin/Globulin Ratio (0.9-2) Gastric Fluid pH Gastric Occult Blood (Negative) Blood Type Antibody Screen
[2021-06-19] MEDS: THIAMINE HCL 200 MG in SODIUM CHLORIDE 0.9% 50 ML IV SCH ×2 (09:06→20:29)
[2021-06-19] MEDS: FOLIC ACID 1 MG TAB PO SCH (09:26)
[2021-06-19] MEDS: FAMOTIDINE 20 MG TAB PO SCH (09:26)
--- NOTE | 2021-06-19 09:28 | Ultrasound Report ---
DOPPLER ULTRASOUND OF THE HEPATIC AND PORTAL VASCULATURE CLINICAL HISTORY: Cirrhosis. Upper GI bleeding. COMPARISON STUDY: No priors. FINDINGS: Real-time grayscale and color Doppler sonography of the hepatic and portal vasculature is p erformed. The main portal vein is patent with normal direction of flow. The right and left intrahepat ic portal venous branches are patent, as are the hepatic veins. The splenic vein is patent. The hepat ic artery is patent with velocities measuring up to 160 cm/s. The liver is cirrhotic in morphology an d heterogeneous in echotexture with nodularity of the surface contour. There is a small volume of per ihepatic ascites. IMPRESSION: 1. Normal Doppler assessment of the hepatic and portal vasculature. 2. Cirrhotic liver morphology and perihepatic ascites. Electronically signed by: Murray Abdalla M.D. 06/19/2021 9:27 AM
--- NOTE | 2021-06-19 09:54 | XRay Report ---
SINGLE VIEW CHEST CLINICAL HISTORY: Respiratory failure FINDINGS: An AP, portable, upright chest radiograph is compared to study dated 06/18/2021 and correla funmi with chest CT dated 06/17/2021. Endotracheal and enteric tubes are unchanged in position. The hea rt is enlarged. There is pulmonary vascular congestion. There are layering pleural effusions with bib asilar consolidation. No pneumothorax is seen. The skeletal structures are osteopenic. There are heal ed left-sided rib fractures. IMPRESSION: 1. Stable lines and tubes. 2. Cardiomegaly with pulmonary vascular congestion. 3. Layering pleural effusions with bibasilar consolidation. ACT 112: Negative or not required by law. Electronically signed by: Murray Abdalla M.D. 06/19/2021 9:53 AM
--- NOTE | 2021-06-19 11:14 | Critical Care Progress Note ---
Date of Service June 19, 2021 Assessment & Plan (1) Acute hypercapnic respiratory failure: (2) Acute hypoxemic respiratory failure: (3) COVID-19: (4) Cor pulmonale: (5) Bilateral lower leg cellulitis: (6) Obesity: Plan: Impression: 60-year-old male with medical history that is not entirely complete at this point time presenting to the emergency room with hypoxemic hypercarbic respiratory failure. May be secondary to underlying obstructive lung disease. He is found to be Covid positive but has minimal parenchymal disease on his CT scan. He has evidence of pulmonary hypertension and likely has obesity hypoventilation syndrome. 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 24-hour events: Patient remained hemodynamically stable. Vent settings were weaned. He was placed on an SBT this morning. He did well for 45 minutes with an R SBI below 70. He subsequently been extubated to nasal cannula at 8 L/min. He did have some bloody secretions through his OG tube earlier this morning which have now cleared. He was initiated on octreotide and Protonix. GI consultation was obtained. They recommended conservative therapy and have no plans for endoscopy currently. Recommendations: 1. Neurologic: Sedation now off. We will continue to follow neurological status. Will monitor for alcohol withdrawal syndrome. Continue thiamine folate. May need Ativan depending on withdrawal symptoms but looks good currently. 2. Pulmonary: Hypoxemic and hypercarbic respiratory failure: Now extubated to nasal cannula. We will wean oxygen as tolerated. Continue diuresis. We will c ontinue Perforomist and budesonide as needed duo nebs. Not suspicious that Covid is causing significant parenchymal lung disease currently. Will follow for signs or symptoms of sleep disordered breathing and may require empiric CPAP at night. Consider outpatient polysomnography 3. Cardiovascular: Diastolic dysfunction on echocardiogram with preserved EF. No evidence of pulmonary hypertension however there was some bowing of the septum suggestive of RV pressure overload. Continue aggressive diuresis. He is getting Diamox today and will add back Lasix. Continue blood pressure control. 4. Endocrine: Glycemic control per protocol. Hemoglobin A1c mildly elevated 5. ID: Patient empirically placed on antibiotics for possible sepsis/cellulitis. Cultures are negative. His white count is normal. Will de- escalate down to Ancef and can transition to Keflex once he is taking p.o. 6. Renal: Lasix and Diamox today 7. GI: N.p.o. for now. INR was normal. Will need speech therapy evaluation for swallow study 24 hours post extubation. Per GI, continue Protonix and octreotide for 48 hours. We will continue to monitor for signs or symptoms of bleeding. 9. Prophylaxis: Lovenox. Okay to discontinue H2 rose 10. Okay to discontinue Nelson catheter. Out of bed to chair as tolerated. PT OT consultations. Total of 35 minutes time was spent in evaluation management stabilization of this patient. This includes discussion with bedside critical care nurse and on multidisciplinary rounds. Admission and Anticipated Discharge Date Admission Date: June 17, 2021 Subjective Patient seen and examined. He was intubated and sedated but following commands and on minimal vent settings. Has been hemodynamically stable. Review of Systems Review of Systems: Unobtainable due to endotracheal tube Physical Exam Constitutional: + morbidly obese Neck: trachea midline, no thyromegaly Cardiovascular: Rate/Rhythm: regular rate Heart Sounds: normal S1 and normal S2 Extremities: + edema Gastrointestinal (Abdomen): normal bowel sounds, soft, nontender, no hepatosplenomegaly Musculoskeletal: Extremities: extremities normal to inspection Lymphatic: no cervical lymphadenopathy Results & Data Results & Data ([facility]) Vital Signs (Past 12 Hours) Vital Signs Temp Pulse Resp BP Pulse Ox Pulse Ox 06/19/21 10:30 37.1 C 81 25 H 89 L 06/19/21 10:00 36.9 C 79 19 155/91 H 90 06/19/21 09:30 36.7 C 80 16 93 06/19/21 09:00 36.6 C 71 10 L 141/90 H 91 06/19/21 08:30 36.6 C 63 16 94 06/19/21 08:00 36.6 C 64 16 92 06/19/21 07:30 36.6 C 60 16 94 06/19/21 07:12 59 L 16 95 06/19/21 07:00 36.5 C 57 L 16 06/19/21 06:30 36.5 C 60 16 93 06/19/21 06:00 36.5 C 60 16 06/19/21 05:30 36.3 C L 59 L 9 L 89 L 06/19/21 05:00 36.3 C L 53 L 16 120/79 93 06/19/21 04:30 36.3 C L 52 L 16 93 06/19/21 04:00 36.4 C L 52 L 16 120/79 93 06/19/21 03:30 36.4 C L 53 L 16 94 06/19/21 03:05 53 L 16 93 06/19/21 03:00 36.4 C L 51 L 16 111/74 94 06/19/21 02:30 36.4 C L 52 L 16 92 06/19/21 02:00 36.4 C L 55 L 16 92 06/19/21 01:30 36.4 C L 56 L 16 89 L 06/19/21 01:00 36.5 C 57 L 16 115/76 89 L 06/19/21 00:00 36.3 C L 53 L 16 06/18/21 23:40 53 L 16 92 Diagnostic Findings Echocardiogram performed 06/18/2021 showed an EF of 60 to 65% with grade 1 diastolic dysfunction. Right ventricle was normal however there was flattening of the intraventricular septum suggestive of RV pressure overload. No significant pulmonary hypertension identified. Critical Care Results & Data Vital Signs (Past 12 Hours) Vital Signs Temp Pulse Resp BP Pulse Ox Pulse Ox 06/19/21 10:30 37.1 C 81 25 H 89 L 06/19/21 10:00 36.9 C 79 19 155/91 H 90 06/19/21 09:30 36.7 C 80 16 93 06/19/21 09:00 36.6 C 71 10 L 141/90 H 91 06/19/21 08:30 36.6 C 63 16 94 06/19/21 08:00 36.6 C 64 16 92 06/19/21 07:30 36.6 C 60 16 94 06/19/21 07:12 59 L 16 95 06/19/21 07:00 36.5 C 57 L 16 06/19/21 06:30 36.5 C 60 16 93 06/19/21 06:00 36.5 C 60 16 06/19/21 05:30 36.3 C L 59 L 9 L 89 L 06/19/21 05:00 36.3 C L 53 L 16 120/79 93 06/19/21 04:30 36.3 C L 52 L 16 93 06/19/21 04:00 36.4 C L 52 L 16 120/79 93 06/19/21 03:30 36.4 C L 53 L 16 94 06/19/21 03:05 53 L 16 93 06/19/21 03:00 36.4 C L 51 L 16 111/74 94 06/19/21 02:30 36.4 C L 52 L 16 92 06/19/21 02:00 36.4 C L 55 L 16 92 06/19/21 01:30 36.4 C L 56 L 16 89 L 06/19/21 01:00 36.5 C 57 L 16 115/76 89 L 06/19/21 00:00 36.3 C L 53 L 16 06/18/21 23:40 53 L 16 92 Lab & Micro Results (Past 24 Hours) RBC 5.66 M/uL (4.7-6.1) 06/19/21 WBC 10.47 K/uL (4.8-10.8) 06/19/21 Hgb 16.9 g/dL (14.0-18.0) 06/19/21 Hct 52.7 % (42-52) H 06/19/21 MCV 93.1 fL (80-100) 06/19/21 MCH 29.9 pg (25-34) 06/19/21 MCHC 32.1 g/dL (32-36) 06/19/21 RDW Standard Deviation 49.6 fL (36.4-46.3) H 06/19/21 RDW Coefficient of Variation 14.7 % (11.5-14.5) H 06/19/21 Plt Count 220 K/uL (130-400) 06/19/21 MPV 9.5 fL (7.4-10.4) 06/19/21 Neutrophils (%) (Auto) 73.3 % 06/19/21 Lymphocytes (%) (Auto) 13.6 % 06/19/21 Monocytes # (Auto) 1.19 K/uL (0.11-0.59) H 06/19/21 Eosinophils # (Auto) 0.07 K/uL (0-0.5) 06/19/21 Immature Granulocyte % (Auto) 0.9 % 06/19/21 Neutrophils # (Auto) 7.69 K/uL (1.4-6.5) H 06/19/21 Lymphocytes # (Auto) 1.42 K/uL (1.2-3.4) 06/19/21 Monocytes # (Auto) 1.19 K/uL (0.11-0.59) H 06/19/21 Eosinophils # (Auto) 0.07 K/uL (0-0.5) 06/19/21 Basophils # (Auto) 0.01 K/uL (0-0.2) 06/19/21 Immature Granulocyte # (Auto) 0.09 K/uL (0.00-0.02) H 06/19/21 Na 135 mmol/L (136-145) L 06/19/21 K 3.6 mmol/L (3.5-5.1) 06/19/21 Cl 96 mmol/L (98-107) L 06/19/21 CO2 33 mmol/L (21-32) H 06/19/21 Anion Gap 6.0 (3-11) 06/19/21 BUN 22 mg/dl (7-18) H 06/19/21 Creatinine 1.20 mg/dl (0.6-1.4) 06/19/21 Estimated GFR ( Amer) 76.8 ml/min 06/19/21 Estimated GFR (Non-Af Amer) 66.3 ml/min 06/19/21 BUN/Creatinine Ratio 18.7 (10-20) 06/19/21 Glu 100 mg/dl (70-99) H 06/19/21 Ca 8.7 mg/dl (8.5-10.1) 06/19/21 Phosphorus Level 4.1 mg/dl (2.5-4.9) 06/19/21 Total Bilirubin 1.0 mg/dl (0.2-1) 06/19/21 AST 26 U/L (15-37) 06/19/21 ALT 47 U/L (12-78) 06/19/21 Alkaline Phosphatase 88 U/L (45-117) 06/19/21 TP 6.1 gm/dl (6.4-8.2) L 06/19/21 Albumin 2.4 gm/dl (3.4-5.0) L 06/19/21 Globulin 3.7 gm/dl (2.5-4.0) 06/19/21 Albumin/Globulin Ratio 0.6 (0.9-2) L 06/19/21 Mg 2.8 mg/dl (1.8-2.4) H 06/19/21 05:24 06/19/21 Calcium Level 8.7 mg/dl (8.5-10.1) 06/19/21 05:24 06/19/21 Prothromb Time International Ratio 1.1 (0.9-1.1) 06/19/21 05:42 06/19/21 Ivan Test NA 06/19/21 05:29 06/19/21 Microbiology 06/17/21 12:39 Aerobic Blood Culture - Preliminary Blood No growth in Aerobic bottle after 24 hours. Anaerobic Blood Culture - Preliminary No growth in Anaerobic bottle after 24 hours. 06/17/21 12:23 Aerobic Blood Culture - Preliminary Blood No growth in Aerobic bottle after 24 hours. Anaerobic Blood Culture - Preliminary No growth in Anaerobic bottle after 24 hours. Diagnostic Findings (Past 24 Hours) Portal Vein US 06/19/21 00:19 DOPPLER ULTRASOUND OF THE HEPATIC AND PORTAL VASCULATURE CLINICAL HISTORY: Cirrhosis. Upper GI bleeding. COMPARISON STUDY: No priors. FINDINGS: Real-time grayscale and color Doppler sonography of the hepatic and portal vasculature is performed. The main portal vein is patent with normal direction of flow. The right and left intrahepatic portal venous branches are patent, as are the hepatic veins. The splenic vein is patent. The hepatic artery is patent with velocities measuring up to 160 cm/s. The liver is cirrhotic in morphology and heterogeneous in echotexture with nodularity of the surface contour. There is a small volume of perihepatic ascites. IMPRESSION: 1. Normal Doppler assessment of the hepatic and portal vasculature. 2. Cirrhotic liver morphology and perihepatic ascites. Electronically signed by: Murray Abdalla M.D. 06/19/2021 9:27 AM Chest X-Ray 06/19/21 07:00 SINGLE VIEW CHEST CLINICAL HISTORY: Respiratory failure FINDINGS: An AP, portable, upright chest radiograph is compared to study dated 06/18/2021 and correlated with chest CT dated 06/17/2021. Endotracheal and enteric tubes are unchanged in position. The heart is enlarged. There is pulmonary vascular congestion. There are layering pleural effusions with bibasilar consolidation. No pneumothorax is seen. The skeletal structures are osteopenic. There are healed left-sided rib fractures. IMPRESSION: 1. Stable lines and tubes. 2. Cardiomegaly with pulmonary vascular congestion. 3. Layering pleural effusions with bibasilar consolidation. ACT 112: Negative or not required by law. Electronically signed by: Murray Abdalla M.D. 06/19/2021 9:53 AM I & O Totals 24 Hours 06/18/21 06/19/21 06/20/21 06:59 06:59 06:59 Intake Total 662.550 / 421.853 2461.141 / 1987.321 696.993 / 696.993 Output Total 9800 / 9800 2155 / 2155 150 / 150 Balance -9137.450 / -9137.450 -357.859 / -167.679 546.993 / 546.993 Cumulative 06/17/21 11:54 thru 06/19/21 10:43 Intake Total 3156.684 Output Total 00872 Balance -8948.316 RT Ventilator Mngmt (Last Documented) Ventilator Ordered Settings Ventilator Support Mode Assist Control 06/19/21 07:12 Respiratory Rate 25 06/19/21 10:30 Ventilator Tidal Volume 440 06/19/21 07:12 Setting Minute Ventilation 5.2 06/19/21 07:12 Positive End Expiratory 5 06/19/21 07:12 Pressure Fraction of Inspired Oxygen 50 06/19/21 08:55 Peak Inspiratory Flow 39 06/18/21 07:30 Machine Comment weaned peep to 5 and fi02 to 50% 06/18/21 15:47 Ventilator - PT Measurements Respiratory Rate 25 Exhaled Tidal Volume 420 Minute Ventilation 5.2 Peak Inspiratory Airway 18 Pressure Plateau Pressure 14 Respiratory Cycle Inspiratory: 1:3.2 Expiratory Ratio Inspiratory Phase Time 0.9 End-Tidal CO2 50 Static Lung Compliance 46.67 Dynamic Lung Compliance 32.31 Normal Static Lung Compliance 47.00 Patient Measurements Comment Pt extubated Per Dr. Fisher's order to 8L Oxy mask Coding Level of Care Code 16127 Subseq Hosp Care Lvl 3 Diagnoses Acute hypercapnic respiratory failure J96.02 Acute hypoxemic respiratory failure J96.01 COVID-19 U07.1 Cor pulmonale I27.81 Bilateral lower leg cellulitis L03.116; L03.115 Obesity E66.9
[2021-06-19] MEDS: ceFAZolin 2000MG 2,000 MG/15 ML SYR IV SCH ×2 (11:51→18:25)
--- NOTE | 2021-06-19 17:32 | Hospitalist Progress Note ---
Date of Service June 19, 2021 Assessment & Plan (1) Acute hypoxemic respiratory failure: Plan: Patient is 60 y/o M with PMH venous insufficiency, tobacco use, dyslipidemia, h/o impaired fasting glucose, obesity presented to ER with c/o SOB x 3 days. Acute hypoxic respiratory failure with hypercarbia Multifactorial likely secondary to obesity hypoventilation syndrome,obstructive lung disease, cor pulmonale and complicated by COVID-19 infection Required intubation in the emergency room on admission Status post extubation on 06/19/2021 Appreciate lead python developer input and recommendation Has been feeling much better and saturating on oxygen mask Trial of CPAP tonight Will need outpatient polysomnography on discharge (2) COPD (chronic obstructive pulmonary disease): Plan: Has been a chronic smoker with chronic cough and shortness of breath Has COPD with exacerbation and is complicated by COVID-19 virus infection We will continue with steroid and bronchodilators as advised by lead python developer Clinically improving (3) Upper GI bleed: Plan: Noted to have coffee-ground emesis Has been on intravenous octreotide and PPI Hemoglobin remains stable Given the history of alcoholism GI consultation was obtained Appreciate GI input and recommendation No EGD as of now (4) Fluid overload: Plan: Likely has cor pulmonale with cardiomegaly, leg edema and small right pleural effusion Noted to have fluid overload with component of cor pulmonale CTA did not show cardiomegaly and small right pleural effusion No overt pulmonary congestion Echo did show grade 1 diastolic dysfunction with normal systolic function and possible mild pulmonary hypertension Has been getting Lasix and Diamox Diuresing enough (5) Bilateral lower leg cellulitis: Plan: History of venous insufficiency Has bilateral leg cellulitis with a few ulcerations involving the leg skin In ER given Zosyn and Dapto Blood cultures have been negative Will de-escalate antibiotic from tomorrow DVT Prophylaxis -Lovenox-has been on hold due to possible GI bleed No family members are available to discuss the case He does not have any connection with any of his family members (6) Acute hypercapnic respiratory failure: Plan: As above (7) COVID-19: Plan: He is fully vaccinated Has been complaining of increasing shortness of breath for the last 3 days CTA chest did not show any pulmonary embolism but did show small right pleural effusion and minimal bibasilar consolidation Has been on intravenous dexamethasone but no remdesivir and/or other medications We will continue dexamethasone Admission and Anticipated Discharge Date Admission Date: June 17, 2021 Subjective 06/18/2021 The patient was seen and examined in ICU and in the Covid room He remains intubated and sedated Opens eyes with command 06/19/2021 The patient was seen and examined in ICU He is extubated and has been on oxygen mask to maintain saturation He has been feeling much better now Further information regarding this admission: He is a smoker and social drinker. He has not been to his primary care physician for more than 2 years and he does not take any prescription medicine. He had been having shortness of breath with cough about 3 days before admission without any fever and/or chills. He texted his boss on the morning of admission that he is feeling short of breath and needs to go to the hospital and after that he cannot remember anything until after extubation this morning. Review of Systems Review of Systems: All systems reviewed and are unremarkable except as noted below Respiratory: Productive cough with minimal shortness of breath Physical Exam Physical Exam: Lying in bed with minimal distress due to cough and shortness of breath Constitutional: well developed, well nourished, + ill appearing and + obese Eyes: PERRL, conjunctivae normal, anicteric sclerae ENMT: external ear and nose normal, oropharynx normal Neck: trachea midline, no thyromegaly Respiratory: + respiratory distress (Minimal respiratory distress) and + cough (Productive of sputum) Auscultation: + diminished lung sounds and + crackles (Minimal crackles at the bases) Cardiovascular: Rate/Rhythm: regular rate and regular rhythm; not tachycardic Heart Sounds: normal S1 and normal S2; no murmur Extremities: + edema (Trace 1+ edema bilaterally with chronic skin changes and a few skin ulcer) Gastrointestinal (Abdomen): Inspection/Auscultation: + abdomen distended and normal bowel sounds Musculoskeletal: No acute arthritis in any joint Skin: Chronic skin changes in the legs with a few skin ulcerations especially on the left side with redness and increase in warmth Neurologic: Alert, awake and oriented x3. Results & Data Results & Data ([facility]) Vital Signs (Past 12 Hours) Vital Signs Temp Pulse Resp BP Pulse Ox Pulse Ox 06/19/21 10:30 37.1 C 81 25 H 89 L 06/19/21 10:00 36.9 C 79 19 155/91 H 90 06/19/21 09:30 36.7 C 80 16 93 06/19/21 09:00 36.6 C 71 10 L 141/90 H 91 06/19/21 08:30 36.6 C 63 16 94 06/19/21 08:00 36.6 C 64 16 92 06/19/21 07:30 36.6 C 60 16 94 06/19/21 07:12 59 L 16 95 06/19/21 07:00 36.5 C 57 L 16 06/19/21 06:30 36.5 C 60 16 93 06/19/21 06:00 36.5 C 60 16 06/19/21 05:30 36.3 C L 59 L 9 L 89 L Laboratory Results Short CBC 06/19/21 06/19/21 Range/Units 00:25 05:24 WBC 10.47 (4.8-10.8) K/uL Hgb 16.8 16.9 (14.0-18.0) g/dL Hct 51.9 52.7 H (42-52) % Plt Count 220 (130-400) K/uL BMP 06/19/21 05:24 Sodium 135 L Potassium 3.6 Chloride 96 L Carbon Dioxide 33 H BUN 22 H Creatinine 1.20 Glucose 100 H Calcium 8.7 Liver Function 06/19/21 Range/Units 05:24 Total Bilirubin 1.0 (0.2-1) mg/dl AST 26 (15-37) U/L ALT 47 (12-78) U/L Alkaline Phosphatase 88 (45-117) U/L Albumin 2.4 L (3.4-5.0) gm/dl Medications Administered Current Inpatient Medications Albuterol (Albut/Ipratrop 3mg/0.5mg Neb 3 Ml Vial) 3 ml NEB Q4R PRN PRN Reason: Shortness Of Breath Or Wheezing Stop: 07/17/21 22:59 Budesonide (Budesonide 0.5 Mg/2 Ml Vial (Pulmicort)) 0.5 mg NEB BIDR REJI Stop: 07/18/21 06:59 Last Admin: 06/19/21 06:59 Dose: 0.5 mg Documented by: Enoxaparin Sodium (Enoxaparin Inj 40 Mg/0.4 Ml Syr) 40 mg SQ Q12H REJI Stop: 07/17/21 18:59 Last Admin: 06/18/21 18:03 Dose: 40 mg Documented by: Folic Acid (Folic Acid 1 Mg Tab) 1 mg PO QAM [facility] Stop: 07/18/21 08:59 Last Admin: 06/19/21 09:26 Dose: Not Given Documented by: Formoterol Fumarate (Formoterol 20 Mcg/2 Ml Vial) 20 mcg NEB BIDR REJI Stop: 07/18/21 06:59 Last Admin: 06/19/21 06:59 Dose: 20 mcg Documented by: Furosemide (Furosemide 40 Mg/4 Ml Vial) 40 mg IV BID [facility] Stop: 07/17/21 20:59 Last Admin: 06/17/21 20:11 Dose: 40 mg Documented by: Hydralazine HCl (Hydralazine Hcl 20 Mg/Ml Vial) 10 mg IV Q4 PRN PRN Reason: Hypertension sbp>160 Stop: 07/17/21 16:16 Thiamine HCl 200 mg/ Sodium (Chloride) 52 mls @ 208 mls/hr IV BID [facility] Stop: 07/18/21 08:59 Last Infusion: 06/19/21 09:53 Dose: Infused Documented by: Pantoprazole Sodium 40 mg/ (Dextrose) 100 mls @ 20 mls/hr IV Q5H [facility] Stop: 06/21/21 00:29 Last Admin: 06/19/21 13:31 Dose: 8 mg/hr, 20 mls/hr Documented by: Octreotide Acetate 500 mcg/ (Sodium Chloride) 105 mls @ 10.5 mls/hr IV .Q10H [facility] Stop: 06/21/21 00:29 Last Admin: 06/19/21 10:43 Dose: 50 mcg/hr, 10.5 mls/hr Documented by: Cefazolin Sodium (Ancef 2000mg) 2,000 mg in 15 mls @ 3.75 mls/min IV Q8H [facility] Stop: 06/24/21 11:29 Last Admin: 06/19/21 11:51 Dose: 3.75 mls/min Documented by: Miscellaneous (Icu Electrolyte Replacement Protocol) 1 ea N/A BID@06,18 [facility]; Protocol Stop: 06/24/21 17:59 Last Admin: 06/19/21 08:17 Dose: Not Given Documented by: Sterile Water (Tube Feeding Water Flush) 30 ml GT Q4H [facility] Stop: 07/18/21 07:59 Last Admin: 06/19/21 11:43 Dose: Not Given Documented by:
[2021-06-20] MEDS: PANTOprazole 40 MG in DEXTROSE 5% 100 ML IV SCH ×5 (01:16→22:03)
[2021-06-20] MEDS: TUBE FEEDING WATER FLUSH GT SCH ×2 (02:41→09:35)
[2021-06-20] MEDS: ceFAZolin 2000MG 2,000 MG/15 ML SYR IV SCH (02:41)
[2021-06-20 05:01] LABS: Basophils # (auto) 0.01 K/uL (0-0.2); Basophils % (auto) 0.1 %; Eosinophils # (auto) 0.02 K/uL (0-0.5); Eosinophils % (auto) 0.2 %; Hematocrit (blood only) 52.5 % (42-52); Immature Granulocytes # (auto) 0.06 K/uL (0.00-0.02); Immature Granulocytes % (auto) 0.5 %; Lymphocytes # (auto) 0.85 K/uL (1.2-3.4); Mean Corpuscular Hemoglobin 29.2 pg (25-34); Mean Corpuscular Hgb Conc 30.5 g/dL (32-36); Mean Corpuscular Volume 95.8 fL (80-100); Mean Platelet Volume 9.1 fL (7.4-10.4); Monocytes # (auto) 1.54 K/uL (0.11-0.59); Monocytes % (auto) 12.7 %; Neutrophils # (auto) 9.65 K/uL (1.4-6.5); Neutrophils % (auto) 79.5 %; Platelet Count 189 K/uL (130-400); RDW Coefficient of Variation 14.7 % (11.5-14.5); RDW Standard Deviation 52.1 fL (36.4-46.3); Red Blood Count 5.48 M/uL (4.7-6.1); White Blood Count 12.13 K/uL (4.8-10.8)
[2021-06-20 05:35] LABS: Albumin Globulin Ratio 0.6 (0.9-2); Albumin Level 2.3 gm/dl (3.4-5.0); BUN Creatinine Ratio 13.9 (10-20); Bilirubin,Total 0.9 mg/dl (0.2-1); Calcium 8.1 mg/dl (8.5-10.1); Creatinine Clr Calc Pharmacy 94.6 ml/min; Magnesium 2.5 mg/dl (1.8-2.4); Potassium 4.2 mmol/L (3.5-5.1); Total Protein 6.3 gm/dl (6.4-8.2)
[2021-06-20] MEDS: OCTREOTIDE ACETATE 500 MCG in 0.9 % SODIUM CHLORIDE 100 ML IV SCH ×2 (05:59→16:25)
[2021-06-20] MEDS: ICU ELECTROLYTE REPLACEMENT PROTOCOL SCH ×2 (06:00→17:07)
[2021-06-20] MEDS: FORMOTEROL 20 MCG/2 ML VIAL NEB SCH (07:39)
[2021-06-20] MEDS: BUDESONIDE 0.5 MG/2 ML VIAL (PULMICORT) NEB SCH (07:39)
[2021-06-20] MEDS ORDERED: ALBUTEROL HFA 8 GM INHALER INH PRN (08:24)
--- NOTE | 2021-06-20 08:25 | Critical Care Progress Note ---
Date of Service June 20, 2021 Assessment & Plan (1) Acute hypercapnic respiratory failure: (2) Acute hypoxemic respiratory failure: (3) COVID-19: (4) Cor pulmonale: (5) Bilateral lower leg cellulitis: (6) Obesity: Plan: Impression: 60-year-old male with medical history that is not entirely complete at this point time presenting to the emergency room with hypoxemic hypercarbic respiratory failure. May be secondary to underlying obstructive lung disease. He is found to be Covid positive but has minimal parenchymal disease on his CT scan. He has evidence of pulmonary hypertension and likely has obesity hypoventilation syndrome. 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 24-hour events: Patient was extubated. He has done well overnight. His oxygen requirements decreased. He is pending a speech therapy evaluation this morning. Recommendations: 1. Neurologic: No current issues. Continue to follow clinically 2. Pulmonary: Hypoxemic and hypercarbic respiratory failure: Now extubated to nasal cannula. Will transition to Anoro and as needed albuterol. PFTs in the outpatient setting may be considered. Smoking cessation recommended. Consider outpatient polysomnography 3. Cardiovascular: Diastolic dysfunction on echocardiogram with preserved EF. No evidence of pulmonary hypertension however there was some bowing of the septum suggestive of RV pressure overload. Transition to oral Lasix and start metoprolol. 4. Endocrine: Glycemic control per protocol. Hemoglobin A1c mildly elevated 5. ID: Patient empirically placed on antibiotics for possible sepsis/ cellulitis. Cultures are negative. His white count is normal. Transition to oral Keflex 6. Renal: Lasix and Diamox today. Electrolyte replacement 7. GI: Awaiting speech therapy evaluation for swallow study 24 hours post extubation. Per GI, continue Protonix and octreotide for additional 24 hours can then stop We will continue to monitor for signs or symptoms of bleeding. 9. Prophylaxis: Lovenox. 10. Out of bed to chair as tolerated. PT OT consultations. Okay to transfer out of the intensive care unit. We will sign off. Feel free to contact us with additional questions or concerns. Total of 35 minutes time was spent in evaluation management stabilization of this patient. This includes discussion with bedside critical care nurse, admitting hospitalist, and with patient at bedside. Admission and Anticipated Discharge Date Admission Date: June 17, 2021 Subjective Patient is awake alert and conversant. He was extubated yesterday. He denies any chest pain difficulty breathing or shortness of breath. He is not clear that the inhalers are offering him any clinical benefit. He wants to eat but is pending evaluation by speech therapy. No chest pain. No fevers chills or night sweats. He overall feels well. Review of Systems Review of Systems: All systems reviewed & are unremarkable except as noted in Subjective Physical Exam Constitutional: + morbidly obese Neck: trachea midline, no thyromegaly Respiratory: Diminished breath sounds bilaterally. No wheezing Cardiovascular: Rate/Rhythm: regular rate Heart Sounds: normal S1 and normal S2 Extremities: + edema Gastrointestinal (Abdomen): normal bowel sounds, soft, nontender, no hepatosplenomegaly Musculoskeletal: Extremities: extremities normal to inspection Lymphatic: no cervical lymphadenopathy Results & Data Results & Data ([facility]) Vital Signs (Past 12 Hours) Vital Signs Temp Pulse Pulse Resp BP Pulse Ox 06/20/21 07:40 74 18 94 06/20/21 06:00 37.5 C 71 19 144/82 H 94 06/20/21 05:00 37.6 C H 73 21 153/83 H 95 06/20/21 04:00 37.7 C H 78 23 96 06/20/21 03:00 37.9 C H 80 25 H 142/76 H 84 L 06/20/21 02:00 37.9 C H 82 24 94 06/20/21 01:00 37.9 C H 80 24 152/83 H 93 06/20/21 00:00 37.9 C H 79 24 148/87 H 91 06/19/21 23:00 38.0 C H 81 24 93 06/19/21 22:00 38.1 C H 82 27 H 160/92 H 94 06/19/21 21:00 38.0 C H 92 H 20 92 Critical Care Results & Data Vital Signs (Past 12 Hours) Vital Signs Temp Pulse Pulse Resp BP Pulse Ox 06/20/21 07:40 74 18 94 06/20/21 06:00 37.5 C 71 19 144/82 H 94 06/20/21 05:00 37.6 C H 73 21 153/83 H 95 06/20/21 04:00 37.7 C H 78 23 96 06/20/21 03:00 37.9 C H 80 25 H 142/76 H 84 L 06/20/21 02:00 37.9 C H 82 24 94 06/20/21 01:00 37.9 C H 80 24 152/83 H 93 06/20/21 00:00 37.9 C H 79 24 148/87 H 91 06/19/21 23:00 38.0 C H 81 24 93 06/19/21 22:00 38.1 C H 82 27 H 160/92 H 94 06/19/21 21:00 38.0 C H 92 H 20 92 Lab & Micro Results (Past 24 Hours) RBC 5.48 M/uL (4.7-6.1) 06/20/21 WBC 12.13 K/uL (4.8-10.8) H 06/20/21 Hgb 16.0 g/dL (14.0-18.0) 06/20/21 Hct 52.5 % (42-52) H 06/20/21 MCV 95.8 fL (80-100) 06/20/21 MCH 29.2 pg (25-34) 06/20/21 MCHC 30.5 g/dL (32-36) L 06/20/21 RDW Standard Deviation 52.1 fL (36.4-46.3) H 06/20/21 RDW Coefficient of Variation 14.7 % (11.5-14.5) H 06/20/21 Plt Count 189 K/uL (130-400) 06/20/21 MPV 9.1 fL (7.4-10.4) 06/20/21 Neutrophils (%) (Auto) 79.5 % 06/20/21 Lymphocytes (%) (Auto) 7.0 % 06/20/21 Monocytes # (Auto) 1.54 K/uL (0.11-0.59) H 06/20/21 Eosinophils # (Auto) 0.02 K/uL (0-0.5) 06/20/21 Immature Granulocyte % (Auto) 0.5 % 06/20/21 Neutrophils # (Auto) 9.65 K/uL (1.4-6.5) H 06/20/21 Lymphocytes # (Auto) 0.85 K/uL (1.2-3.4) L 06/20/21 Monocytes # (Auto) 1.54 K/uL (0.11-0.59) H 06/20/21 Eosinophils # (Auto) 0.02 K/uL (0-0.5) 06/20/21 Basophils # (Auto) 0.01 K/uL (0-0.2) 06/20/21 Immature Granulocyte # (Auto) 0.06 K/uL (0.00-0.02) H 06/20/21 Na 135 mmol/L (136-145) L 06/20/21 K 4.2 mmol/L (3.5-5.1) 06/20/21 Cl 99 mmol/L (98-107) 06/20/21 CO2 35 mmol/L (21-32) H 06/20/21 Anion Gap 1.0 (3-11) L 06/20/21 BUN 16 mg/dl (7-18) 06/20/21 Creatinine 1.16 mg/dl (0.6-1.4) 06/20/21 Estimated GFR ( Amer) 80.0 ml/min 06/20/21 Estimated GFR (Non-Af Amer) 69.0 ml/min 06/20/21 BUN/Creatinine Ratio 13.9 (10-20) 06/20/21 Glu 174 mg/dl (70-99) H 06/20/21 Ca 8.1 mg/dl (8.5-10.1) L 06/20/21 Phosphorus Level 4.0 mg/dl (2.5-4.9) 06/20/21 Total Bilirubin 0.9 mg/dl (0.2-1) 06/20/21 AST 25 U/L (15-37) 06/20/21 ALT 34 U/L (12-78) 06/20/21 Alkaline Phosphatase 82 U/L (45-117) 06/20/21 TP 6.3 gm/dl (6.4-8.2) L 06/20/21 Albumin 2.3 gm/dl (3.4-5.0) L 06/20/21 Globulin 4.0 gm/dl (2.5-4.0) 06/20/21 Albumin/Globulin Ratio 0.6 (0.9-2) L 06/20/21 Mg 2.5 mg/dl (1.8-2.4) H 06/20/21 04:53 06/20/21 Calcium Level 8.1 mg/dl (8.5-10.1) L 06/20/21 04:53 06/20/21 Microbiology 06/17/21 12:39 Aerobic Blood Culture - Preliminary Blood No growth in Aerobic bottle after 48 hours. Anaerobic Blood Culture - Preliminary No growth in Anaerobic bottle after 48 hours. 06/17/21 12:23 Aerobic Blood Culture - Preliminary Blood No growth in Aerobic bottle after 48 hours. Anaerobic Blood Culture - Preliminary No growth in Anaerobic bottle after 48 hours. Diagnostic Findings (Past 24 Hours) Portal Vein US 06/19/21 00:19 DOPPLER ULTRASOUND OF THE HEPATIC AND PORTAL VASCULATURE CLINICAL HISTORY: Cirrhosis. Upper GI bleeding. COMPARISON STUDY: No priors. FINDINGS: Real-time grayscale and color Doppler sonography of the hepatic and portal vasculature is performed. The main portal vein is patent with normal direction of flow. The right and left intrahepatic portal venous branches are patent, as are the hepatic veins. The splenic vein is patent. The hepatic artery is patent with velocities measuring up to 160 cm/s. The liver is cirrhotic in morphology and heterogeneous in echotexture with nodularity of the surface contour. There is a small volume of perihepatic ascites. IMPRESSION: 1. Normal Doppler assessment of the hepatic and portal vasculature. 2. Cirrhotic liver morphology and perihepatic ascites. Electronically signed by: Murray Abdalla M.D. 06/19/2021 9:27 AM Chest X-Ray 06/19/21 07:00 SINGLE VIEW CHEST CLINICAL HISTORY: Respiratory failure FINDINGS: An AP, portable, upright chest radiograph is compared to study dated 06/18/2021 and correlated with chest CT dated 06/17/2021. Endotracheal and enteric tubes are unchanged in position. The heart is enlarged. There is pulmonary vascular congestion. There are layering pleural effusions with bibasilar consolidation. No pneumothorax is seen. The skeletal structures are osteopenic. There are healed left-sided rib fractures. IMPRESSION: 1. Stable lines and tubes. 2. Cardiomegaly with pulmonary vascular congestion. 3. Layering pleural effusions with bibasilar consolidation. ACT 112: Negative or not required by law. Electronically signed by: Murray Abdalla M.D. 06/19/2021 9:53 AM I & O Totals 24 Hours 06/19/21 06/20/21 06/21/21 06:59 06:59 06:59 Intake Total 1797.141 / 7487.024 9310.293 / 1914.293 Output Total 2155 / 2155 2350 / 2350 Balance -357.859 / -167.679 -435.707 / -435.707 Cumulative 06/17/21 11:54 thru 06/20/21 06:00 Intake Total 4373.984 Output Total 05939 Balance -9931.016 RT Ventilator Mngmt (Last Documented) Ventilator Ordered Settings Ventilator Support Mode Assist Control 06/19/21 07:12 Respiratory Rate 18 06/20/21 07:40 Ventilator Tidal Volume 440 06/19/21 07:12 Setting Minute Ventilation 5.2 06/19/21 07:12 Positive End Expiratory 5 06/19/21 07:12 Pressure Fraction of Inspired Oxygen 50 06/19/21 08:55 Peak Inspiratory Flow 39 06/18/21 07:30 Machine Comment weaned peep to 5 and fi02 to 50% 06/18/21 15:47 Ventilator - PT Measurements Respiratory Rate 18 Exhaled Tidal Volume 420 Minute Ventilation 5.2 Peak Inspiratory Airway 18 Pressure Plateau Pressure 14 Respiratory Cycle Inspiratory: 1:3.2 Expiratory Ratio Inspiratory Phase Time 0.9 End-Tidal CO2 50 Static Lung Compliance 46.67 Dynamic Lung Compliance 32.31 Normal Static Lung Compliance 47.00 Patient Measurements Comment Pt extubated Per Dr. Fisher's order to 8L Oxy mask Coding Level of Care Code 74198 Subseq Hosp Care Lv 3 Diagnoses Acute hypercapnic respiratory failure J96.02 Acute hypoxemic respiratory failure J96.01 COVID-19 U07.1 Cor pulmonale I27.81 Bilateral lower leg cellulitis L03.116; L03.115 Obesity E66.9
[2021-06-20] MEDS ORDERED: METOPROLOL TARTRATE 1 MG/ML VIAL IV ONE (09:00)
[2021-06-20] MEDS ORDERED: METOPROLOL TARTRATE 1 MG/ML VIAL IV PRN (09:10)
[2021-06-20] MEDS: cephALEXin 500 MG CAP PO SCH ×4 (10:39→20:21)
[2021-06-20] MEDS: ENOXAPARIN INJ 120 MG/0.8 ML SYR SQ SCH ×2 (10:39→20:21)
[2021-06-20] MEDS: UMECLIDINIUM/VILANTEROL 62.5/25MCG 7 PUFFS/INHALER INH SCH (10:40)
[2021-06-20] MEDS: FUROSEMIDE 20 MG TAB PO SCH (10:40)
[2021-06-20] MEDS: METOPROLOL TARTRATE 25 MG TAB PO SCH ×2 (10:40→20:21)
--- NOTE | 2021-06-20 11:10 | XRay Report ---
XR chest 1V portable CLINICAL HISTORY: Follow-up bilateral pleural effusions and alveolar opacities. COMPARISON STUDY: 06/19/2021 TECHNIQUE: 1 view of the chest FINDINGS: Single frontal view of the chest demonstrates the heart to again be enlarged. Endotracheal tube has b een removed. There are again moderate sized bilateral pleural effusions, right greater than left. The re is evidence for bilateral alveolar opacities characteristic of atelectasis/collapse. No air bronch ograms are seen . There is no evidence for vascular congestion. There is no acute osseous pathology. IMPRESSION: Status post extubation with moderate sized bilateral pleural effusions, right greater juve n left again seen. Confluent alveolar opacities are present bilaterally characteristic of atelectasis /collapse. No other bronchograms are seen. ACT 112: Negative or not required by law. Electronically signed by: Saleem Templeton M.D. 06/20/2021 11:09 AM
--- NOTE | 2021-06-20 13:36 | Hospitalist Progress Note ---
Date of Service June 20, 2021 Assessment & Plan (1) Acute hypoxemic respiratory failure: Plan: Patient is 60 y/o M with PMH venous insufficiency, tobacco use, dyslipidemia, h/o impaired fasting glucose, obesity presented to ER with c/o SOB x 3 days. Acute hypoxic respiratory failure with hypercarbia Multifactorial likely secondary to obesity hypoventilation syndrome,obstructive lung disease, cor pulmonale and complicated by COVID-19 infection Required intubation in the emergency room on admission Status post extubation on 06/19/2021 Appreciate director of retail operations input and recommendation Has been feeling much better and saturating on oxygen mask Trial of CPAP tonight Will need outpatient polysomnography on discharge Clinically much better and he has been saturating on 2 L nasal cannula oxygen Denies any shortness of breath at rest Atrial fibrillation with RVR Developed atrial fibrillation and has been showing significant pauses up to 3.6 seconds Has been on Lovenox 120 mg twice daily Beta-rose has been started We will get a cardiology consult for further management (2) COPD (chronic obstructive pulmonary disease): Plan: Has been a chronic smoker with chronic cough and shortness of breath Has COPD with exacerbation and is complicated by COVID-19 virus infection We will continue with steroid and bronchodilators as advised by director of retail operations Clinically improving (3) Upper GI bleed: Plan: Noted to have coffee-ground emesis Has been on intravenous octreotide and PPI Hemoglobin remains stable Given the history of alcoholism GI consultation was obtained Appreciate GI input and recommendation No EGD as of now Hemoglobin remains stable (4) Fluid overload: Plan: Likely has cor pulmonale with cardiomegaly, leg edema and small right pleural effusion Noted to have fluid overload with component of cor pulmonale CTA did not show cardiomegaly and small right pleural effusion No overt pulmonary congestion Echo did show grade 1 diastolic dysfunction with normal systolic function and possible mild pulmonary hypertension Has been getting Lasix and Diamox Diuresing enough Lasix have been given orally 20 mg daily (5) Bilateral lower leg cellulitis: Plan: History of venous insufficiency Has bilateral leg cellulitis with a few ulcerations involving the leg skin In ER given Zosyn and Dapto Blood cultures have been negative Will de-escalate antibiotic from tomorrow Antibiotic is changed to oral Keflex DVT Prophylaxis -Lovenox-has been on hold due to possible GI bleed -Has been on Lovenox 120 mg twice daily No family members are available to discuss the case He does not have any connection with any of his family members We will transfer to telemetry unit (6) Acute hypercapnic respiratory failure: Plan: As above (7) COVID-19: Plan: He is fully vaccinated Has been complaining of increasing shortness of breath for the last 3 days CTA chest did not show any pulmonary embolism but did show small right pleural effusion and minimal bibasilar consolidation Has been on intravenous dexamethasone but no remdesivir and/or other medications We will continue dexamethasone Admission and Anticipated Discharge Date Admission Date: June 17, 2021 Subjective 06/18/2021 The patient was seen and examined in ICU and in the Covid room He remains intubated and sedated Opens eyes with command 06/19/2021 The patient was seen and examined in ICU He is extubated and has been on oxygen mask to maintain saturation He has been feeling much better now Further information regarding this admission: He is a smoker and social drinker. He has not been to his primary care physician for more than 2 years and he does not take any prescription medicine. He had been having shortness of breath with cough about 3 days before admission without any fever and/or chills. He texted his boss on the morning of admission that he is feeling short of breath and needs to go to the hospital and after that he cannot remember anyt meeta until after extubation this morning. June 20, 2021 Patient was seen and examined in ICU and in the Covid room He has been feeling much better and is on 2 L of oxygen via nasal cannula to patricia ntain saturation Unfortunately he was noted to have a fever with RVR and also significant pause of more than 3.6 seconds He denies any symptoms of palpitation and/or shortness of breath or chest pain Review of Systems Review of Systems: All systems reviewed and are unremarkable except as noted below Respiratory: Productive cough with minimal shortness of breath Physical Exam Physical Exam: Lying in bed with minimal distress due to cough and shortness of breath Constitutional: well developed, well nourished, + ill appearing and + obese Eyes: PERRL, conjunctivae normal, anicteric sclerae ENMT: external ear and nose normal, oropharynx normal Neck: trachea midline, no thyromegaly Respiratory: + respiratory distress (Minimal respiratory distress) and + cough (Productive of sputum) Auscultation: + diminished lung sounds and + crackles (Minimal crackles at the bases) Cardiovascular: Rate/Rhythm: regular rate and regular rhythm; not tachycardic Heart Sounds: normal S1 and normal S2; no murmur Extremities: + edema (Trace 1+ edema bilaterally with chronic skin changes and a few skin ulcer) Gastrointestinal (Abdomen): Inspection/Auscultation: + abdomen distended and normal bowel sounds Musculoskeletal: No acute arthritis in any joint Skin: Chronic skin changes bilaterally in the legs a few skin ulceration on the left leg Neurologic: Alert, awake and oriented x3. Generally weak and lethargic Lymphatic: no cervical or axillary lymphadenopathy Results & Data Results & Data ([facility]) Vital Signs (Past 12 Hours) Vital Signs Temp Pulse Pulse Resp BP Pulse Ox Pulse Ox 06/20/21 12:00 37.9 C H 109 H 23 91 06/20/21 11:00 37.7 C H 115 H 21 158/78 H 76 L 06/20/21 10:39 128 H 122/75 06/20/21 10:00 37.5 C 122 H 20 126/87 89 L 06/20/21 09:00 37.4 C 112 H 20 124/64 89 L 06/20/21 08:00 37.3 C 77 20 148/78 H 93 96 06/20/21 07:40 74 18 94 06/20/21 07:00 37.4 C 76 24 156/87 H 95 06/20/21 06:00 37.5 C 71 19 144/82 H 94 06/20/21 05:00 37.6 C H 73 21 153/83 H 95 06/20/21 04:00 37.7 C H 78 23 96 06/20/21 03:00 37.9 C H 80 25 H 142/76 H 84 L 06/20/21 02:00 37.9 C H 82 24 94 Laboratory Results Short CBC 06/20/21 Range/Units 04:53 WBC 12.13 H (4.8-10.8) K/uL Hgb 16.0 (14.0-18.0) g/dL Hct 52.5 H (42-52) % Plt Count 189 (130-400) K/uL BMP 06/20/21 04:53 Sodium 135 L Potassium 4.2 D Chloride 99 Carbon Dioxide 35 H BUN 16 Creatinine 1.16 Glucose 174 H Calcium 8.1 L Liver Function 06/20/21 Range/Units 04:53 Total Bilirubin 0.9 (0.2-1) mg/dl AST 25 (15-37) U/L ALT 34 (12-78) U/L Alkaline Phosphatase 82 (45-117) U/L Albumin 2.3 L (3.4-5.0) gm/dl Medications Administered Current Inpatient Medications Albuterol (Albut/Ipratrop 3mg/0.5mg Neb 3 Ml Vial) 3 ml NEB Q4R PRN PRN Reason: Shortness Of Breath Or Wheezing Stop: 07/17/21 22:59 Albuterol (Albuterol Hfa 8 Gm Inhaler) 2 puffs INH Q4 PRN PRN Reason: Shortness Of Breath Stop: 07/20/21 08:23 Cephalexin HCl (Cephalexin 500 Mg Cap) 500 mg PO QID [facility]; Protocol Stop: 06/27/21 08:59 Last Admin: 06/20/21 10:39 Dose: 500 mg Documented by: Enoxaparin Sodium (Enoxaparin Inj 120 Mg/0.8 Ml Syr) 120 mg SQ Q12 [facility] Stop: 07/20/21 09:29 Last Admin: 06/20/21 10:39 Dose: 120 mg Documented by: Furosemide (Furosemide 40 Mg/4 Ml Vial) 40 mg IV BID [facility] Stop: 07/17/21 20:59 Last Admin: 06/17/21 20:11 Dose: 40 mg Documented by: Furosemide (Furosemide 20 Mg Tab) 20 mg PO QAM [facility] Stop: 07/20/21 08:59 Last Admin: 06/20/21 10:40 Dose: 20 mg Documented by: Hydralazine HCl (Hydralazine Hcl 20 Mg/Ml Vial) 10 mg IV Q4 PRN PRN Reason: Hypertension sbp>160 Stop: 07/17/21 16:16 Pantoprazole Sodium 40 mg/ (Dextrose) 100 mls @ 20 mls/hr IV Q5H [facility] Stop: 06/21/21 00:29 Last Admin: 06/20/21 11:20 Dose: 8 mg/hr, 20 mls/hr Documented by: Octreotide Acetate 500 mcg/ (Sodium Chloride) 105 mls @ 10.5 mls/hr IV .Q10H [facility] Stop: 06/21/21 00:29 Last Admin: 06/20/21 05:59 Dose: 50 mcg/hr, 10.5 mls/hr Documented by: Metoprolol Tartrate (Metoprolol Tartrate 25 Mg Tab) 25 mg PO BID [facility] Stop: 07/20/21 08:59 Last Admin: 06/20/21 10:40 Dose: 25 mg Documented by: Metoprolol Tartrate (Metoprolol Tartrate 1 Mg/Ml Vial) 5 mg IV Q5M PRN PRN Reason: Tachycardia HR >120 Miscellaneous (Icu Electrolyte Replacement Protocol) 1 ea N/A BID@06,18 [facility]; Protocol Stop: 06/24/21 17:59 Last Admin: 06/20/21 06:00 Dose: Not Given Documented by: Umeclidinium/Vilanterol (Umeclidinium/Vilanterol 62.5/25mcg 7 Puffs/Inhaler) 1 puffs INH DAILY [facility] Stop: 07/20/21 08:59 Last Admin: 06/20/21 10:40 Dose: 1 puffs Documented by:
[2021-06-21] MEDS ORDERED: Nursing to Pharmacy Communication SCH (05:30)
[2021-06-21 07:07] LABS: Basophils # (auto) 0.01 K/uL (0-0.2); Basophils % (auto) 0.1 %; Eosinophils % (auto) 0.8 %; Hematocrit (blood only) 52.8 % (42-52); Hemoglobin 16.1 g/dL (14.0-18.0); Immature Granulocytes # (auto) 0.05 K/uL (0.00-0.02); Immature Granulocytes % (auto) 0.4 %; Lymphocytes # (auto) 1.27 K/uL (1.2-3.4); Lymphocytes % (auto) 10.4 %; Mean Corpuscular Hemoglobin 29.8 pg (25-34); Mean Corpuscular Hgb Conc 30.5 g/dL (32-36); Mean Corpuscular Volume 97.6 fL (80-100); Mean Platelet Volume 9.8 fL (7.4-10.4); Monocytes % (auto) 9.8 %; Neutrophils # (auto) 9.61 K/uL (1.4-6.5); Neutrophils % (auto) 78.5 %; Platelet Count 186 K/uL (130-400); RDW Coefficient of Variation 14.8 % (11.5-14.5); RDW Standard Deviation 52.9 fL (36.4-46.3); Red Blood Count 5.41 M/uL (4.7-6.1); White Blood Count 12.24 K/uL (4.8-10.8)
[2021-06-21 07:23] LABS: Albumin Level 2.2 gm/dl (3.4-5.0); BUN Creatinine Ratio 18.3 (10-20); Calcium 8.4 mg/dl (8.5-10.1); Est GFR (African American) 100.6 ml/min; Est GFR (Non-African American) 86.8 ml/min; Magnesium 2.4 mg/dl (1.8-2.4); Potassium 4.3 mmol/L (3.5-5.1)
[2021-06-21 07:38] LABS: Albumin Globulin Ratio 0.5 (0.9-2); Globulin 4.2 gm/dl (2.5-4.0); Phosphorus 2.3 mg/dl (2.5-4.9); Total Protein 6.4 gm/dl (6.4-8.2)
[2021-06-21] MEDS: ENOXAPARIN INJ 120 MG/0.8 ML SYR SQ SCH ×2 (08:44→21:33)
[2021-06-21] MEDS: cephALEXin 500 MG CAP PO SCH ×4 (08:44→23:55)
[2021-06-21] MEDS: FUROSEMIDE 20 MG TAB PO SCH (08:45)
[2021-06-21] MEDS: UMECLIDINIUM/VILANTEROL 62.5/25MCG 7 PUFFS/INHALER INH SCH (08:45)
[2021-06-21] MEDS ORDERED: METOPROLOL TARTRATE 1 MG/ML VIAL IV PRN (10:19)
--- NOTE | 2021-06-21 11:58 | Cardiology Consultation ---
Date of Consultation June 21, 2021 Assessment & Plan (1) Atrial tachycardia, multifocal: (2) Acute hypoxemic respiratory failure: (3) COPD (chronic obstructive pulmonary disease): (4) Cor pulmonale: (5) HTN (hypertension): (6) Bifascicular block: Patient is a 60-year-old male presenting with hypercapnic and hypoxic respiratory failure, Covid pneumonia with lapse into atrial tachycardia with rhythm strips demonstrating atrial fibrillation, atypical atrial flutter as well as multifocal atrial tachycardia currently. Treatment with beta-blockers yesterday was notable for transient conversion to sinus bradycardia and junctional rhythm Patient tachycardic this morning but tolerating relatively well, blood pressure is hypertensive Recommendations: Patient appropriately anticoagulated currently We will resume oral beta-rose avoid further IV usage. Underlying conduction system disease is present with bifascicular heart block and may ultimately need to reduce beta-rose dosing. Multifocal atrial most likely to respond to beta-rose if tolerated We will treat hypertension beginning losartan 25 mg/day. We will follow as clinical course progresses History of Present Illness Reason for Consultation: Atrial tachycardia with variable rate response Requesting Physician: Dr. Martin Attending Physician: Calin Martin MD History of Present Illness Patient is a 60-year-old male whose ongoing issues are notable for 1. Chronic tobacco use 2. Hyperlipidemia 3. Chronic venous insufficiency 4. Chronic right bundle branch block Patient presents now notable absence from recent medical care. Presented with acute hypercapnic and hypoxic respiratory failure in association with COVID-19 pneumonia likely superimposed on chronic obstructive lung disease/hypoventilation syndrome. Patient required transient intubation and mechanical ventilation but was able to be extubated. Yesterday morning patient lapsed into atrial fibrillation/atrial tachycardia with rapid response. Patient was given IV and oral metoprolol with transient breaks in rhythm to profound sinus bradycardia/junctional rhythm. Current rhythm multifocal atrial tachycardia Patient denies any prior history of cardiac disease. Denies rheumatic fever scarlet fever myocardial infarction angina congestive heart failure TIA or stroke. No history of bleeding issues. No difficulty swallowing. Weight has been generally stable per patient Notes issues with chronic lower extremity edema, stasis changes more pronounced while on his feet. 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 Notes familial history of coronary disease and hypertension Has not been taking any medications as an outpatient. Last visit with PCP 2016 Currently denies any acute distress but is in atrial tachycardia rates 120 to 130 bpm. EKG on presentation initially demonstrated sinus rhythm with chronic right bundle branch block, newly noted left anterior fascicular block Echocardiogram with preserved LV systolic function, grade 1 diastolic dysfunction findings suggestive of chronic elevation pulmonary pressures Allergies Allergy/AdvReac Type Severity Reaction Status Date / Time No Known Allergies Allergy Unknown Verified 04/06/06 15:02 Home Medications Medication Instructions Recorded Confirmed Type No Known Home Medications 06/17/21 06/17/21 History Patient History Medical History Dyslipidemia Impaired fasting glucose Obesity Tobacco use Venous insufficiency Surgical History History of arthroplasty of right knee History of bilateral total hip arthroplasty History of cranial surgery For epidural hematoma Hx of tonsillectomy Family History Other Diabetes Social History Smoking Status: Current every day smoker Communication Ability: Sedated Feels Safe at Home: Yes Assistive Devices: Oxygen - Continuous Review of Systems Review of Systems: All systems reviewed & are unremarkable except as noted in HPI & below Physical Exam Constitutional: Somewhat disheveled male appearing older than stated age but in no acute distress Eyes: PERRL, conjunctivae normal, anicteric sclerae ENMT: external ear and nose normal, oropharynx normal Mouth: + dentition abnormality (Overall poor dentition) Neck: trachea midline, no thyromegaly Respiratory: Auscultation: + diminished lung sounds and + crackles (Right greater than left) Cardiovascular: Rate/Rhythm: regular rhythm and + tachycardic Heart Sounds: normal S1 and normal S2; no gallop and no murmur Palpation: normal PMI Vessels: normal carotid upstroke and radial pulses present; no JVD and no carotid bruit Extremities: + edema (1-2+ bilateral lower extremity edema with stasis changes) Gastrointestinal (Abdomen): normal bowel sounds, soft, nontender, no hepatosplenomegaly Musculoskeletal: Head/Neck/Chest: normocephalic; + evidence of head trauma (Mild abrasion forehead) Skin: no rashes, warm and dry Neurologic: PERRL, EOMI, accommodation nl, no face palsy, no dysarthria Psychiatric: A+Ox3, euthymic affect Results & Data ([place]) Vital Signs (Past 12 Hours) Vital Signs Temp Pulse Resp BP Pulse Ox Pulse Ox 06/21/21 08:11 36.7 C 122 H 18 146/96 H 92 06/21/21 08:00 95 06/21/21 05:07 36.8 C 117 H 147/96 H 90 Laboratory Results Laboratory Results - last 24 hr 06/21/21 06/21/21 06:38 06:38 WBC 12.24 H RBC 5.41 Hgb 16.1 Hct 52.8 H MCV 97.6 MCH 29.8 MCHC 30.5 L RDW Std Deviation 52.9 H RDW Coeff of Rosanna 14.8 H Plt Count 186 MPV 9.8 Immature Gran % (Auto) 0.4 Neut % (Auto) 78.5 Lymph % (Auto) 10.4 [place] % (Auto) 9.8 Eos % (Auto) 0.8 Baso % (Auto) 0.1 Neut # (Auto) 9.61 H Lymph # (Auto) 1.27 [place] # (Auto) 1.20 H Eos # (Auto) 0.10 Baso # (Auto) 0.01 Immature Gran # (Auto) 0.05 H Sodium 139 Potassium 4.3 Chloride 101 Carbon Dioxide 32 Anion Gap 7.0 BUN 18 Creatinine 0.96 Est Cr Clr Drug Dosing 115.0 Est GFR ( Amer) 100.6 Est GFR (Non-Af Amer) 86.8 BUN/Creatinine Ratio 18.3 Glucose 123 H Calcium 8.4 L Phosphorus 2.3 L D Magnesium 2.4 Total Bilirubin 1.0 AST 21 ALT 26 Alkaline Phosphatase 81 Total Protein 6.4 Albumin 2.2 L Globulin 4.2 H Albumin/Globulin Ratio 0.5 L
[2021-06-21] MEDS ORDERED: METOPROLOL TARTRATE 1 MG/ML VIAL IV SCH (12:00)
[2021-06-21] MEDS ORDERED: METOPROLOL TARTRATE 25 MG TAB PO SCH (12:15)
--- NOTE | 2021-06-21 12:54 | Hospitalist Progress Note ---
Date of Service June 21, 2021 Assessment & Plan (1) Acute hypoxemic respiratory failure: Plan: Patient is 60 y/o M with PMH venous insufficiency, tobacco use, dyslipidemia, h/o impaired fasting glucose, obesity presented to ER with c/o SOB x 3 days. Acute hypoxic respiratory failure with hypercarbia Multifactorial likely secondary to obesity hypoventilation syndrome,obstructive lung disease, cor pulmonale and complicated by COVID-19 infection Required intubation in the emergency room on admission Status post extubation on 06/19/2021 Appreciate machine cloth measurer input and recommendation Has been feeling much better and saturating on oxygen mask Trial of CPAP tonight Will need outpatient polysomnography on discharge Clinically much better and he has been saturating on 2 L nasal cannula oxygen Denies any shortness of breath at rest Has been requiring anywhere from 2 to 4 L of oxygen to maintain saturation Atrial fibrillation with RVR Developed atrial fibrillation and has been showing significant pauses up to 3.6 seconds Has been on Lovenox 120 mg twice daily Beta-rose has been started Appreciate cardiology input and recommendation-no intravenous beta-rose and lisinopril has been added (2) COPD (chronic obstructive pulmonary disease): Plan: Has been a chronic smoker with chronic cough and shortness of breath Has COPD with exacerbation and is complicated by COVID-19 virus infection We will continue with steroid and bronchodilators as advised by machine cloth measurer Clinically improving (3) Upper GI bleed: Plan: Noted to have coffee-ground emesis Has been on intravenous octreotide and PPI Hemoglobin remains stable Given the history of alcoholism GI consultation was obtained Appreciate GI input and recommendation No EGD as of now Hemoglobin remains stable (4) Fluid overload: Plan: Likely has cor pulmonale with cardiomegaly, leg edema and small right pleural effusion Noted to have fluid overload with component of cor pulmonale CTA did not show cardiomegaly and small right pleural effusion No overt pulmonary congestion Echo did show grade 1 diastolic dysfunction with normal systolic function and possible mild pulmonary hypertension Has been getting Lasix and Diamox Diuresing enough Lasix have been given orally 20 mg daily (5) Bilateral lower leg cellulitis: Plan: History of venous insufficiency Has bilateral leg cellulitis with a few ulcerations involving the leg skin In ER given Zosyn and Dapto Blood cultures have been negative Will de-escalate antibiotic from tomorrow Antibiotic is changed to oral Keflex Legs are looking better DVT Prophylaxis -Lovenox-has been on hold due to possible GI bleed -Has been on Lovenox 120 mg twice daily No family members are available to discuss the case He does not have any connection with any of his family members We will transfer to telemetry unit (6) Acute hypercapnic respiratory failure: Plan: As above (7) COVID-19: Plan: He is fully vaccinated Has been complaining of increasing shortness of breath for the last 3 days CTA chest did not show any pulmonary embolism but did show small right pleural effusion and minimal bibasilar consolidation Has been on intravenous dexamethasone but no remdesivir and/or other medications We will continue dexamethasone Admission and Anticipated Discharge Date Admission Date: June 17, 2021 Subjective 06/18/2021 The patient was seen and examined in ICU and in the Covid room He remains intubated and sedated Opens eyes with command 06/19/2021 The patient was seen and examined in ICU He is extubated and has been on oxygen mask to maintain saturation He has been feeling much better now Further information regarding this admission: He is a smoker and social drinker. He has not been to his primary care physician for more than 2 years and he does not take any prescription medicine. He had been having shortness of breath with cough about 3 days before admission without any fever and/or chills. He texted his boss on the morning of admission that he is feeling short of breath and needs to go to the hospital and after that he cannot remember anything until after extubation this morning. June 20, 2021 Patient was seen and examined in ICU and in the Covid room He has been feeling much better and is on 2 L of oxygen via nasal cannula to maintain saturation Unfortunately he was noted to have a fever with RVR and also significant pause of more than 3.6 seconds He denies any symptoms of palpitation and/or shortness of breath or chest pain 06/21/2021 The patient was seen and examined in telemetry unit and in the Covid room He has been feeling much better regarding his breathing and cough but remains extremely tired and lethargic Heart rate remains elevated but no more pauses Review of Systems Review of Systems: All systems reviewed and are unremarkable except as noted below Respiratory: Productive cough with minimal shortness of breath Physical Exam Physical Exam: Lying in bed with minimal distress due to cough and shortness of breath Constitutional: well developed, well nourished, + ill appearing and + obese Eyes: PERRL, conjunctivae normal, anicteric sclerae ENMT: external ear and nose normal, oropharynx normal Neck: trachea midline, no thyromegaly Respiratory: + respiratory distress (Minimal respiratory distress) and + cough (Productive of sputum) Auscultation: + diminished lung sounds and + crackles (Minimal crackles at the bases) Cardiovascular: Rate/Rhythm: regular rate and regular rhythm; not tachycardic Heart Sounds: normal S1 and normal S2; no murmur Extremities: + edema (Trace 1+ edema bilaterally with chronic skin changes and a few skin ulcer) Gastrointestinal (Abdomen): Inspection/Auscultation: + abdomen distended and normal bowel sounds Musculoskeletal: No acute arthritis in any joint Skin: Has bilateral skin changes in the legs with a few ulceration on the left leg Neurologic: Alert, awake and oriented x3. Generally weak but no focal sensory or motor deficit appreciated Lymphatic: no cervical or axillary lymphadenopathy Results & Data Results & Data ([facility]) Vital Signs (Past 12 Hours) Vital Signs Temp Pulse Resp BP Pulse Ox Pulse Ox 06/21/21 12:14 36.9 C 118 H 20 122/75 90 06/21/21 08:11 36.7 C 122 H 18 146/96 H 92 06/21/21 08:00 95 06/21/21 05:07 36.8 C 117 H 147/96 H 90 Laboratory Results Short CBC 06/21/21 Range/Units 06:38 WBC 12.24 H (4.8-10.8) K/uL Hgb 16.1 (14.0-18.0) g/dL Hct 52.8 H (42-52) % Plt Count 186 (130-400) K/uL BMP 06/21/21 06:38 Sodium 139 Potassium 4.3 Chloride 101 Carbon Dioxide 32 BUN 18 Creatinine 0.96 Glucose 123 H Calcium 8.4 L Liver Function 06/21/21 Range/Units 06:38 Total Bilirubin 1.0 (0.2-1) mg/dl AST 21 (15-37) U/L ALT 26 (12-78) U/L Alkaline Phosphatase 81 (45-117) U/L Albumin 2.2 L (3.4-5.0) gm/dl Medications Administered Current Inpatient Medications Albuterol (Albut/Ipratrop 3mg/0.5mg Neb 3 Ml Vial) 3 ml NEB Q4R PRN PRN Reason: Shortness Of Breath Or Wheezing Stop: 07/17/21 22:59 Albuterol (Albuterol Hfa 8 Gm Inhaler) 2 puffs INH Q4 PRN PRN Reason: Shortness Of Breath Stop: 07/20/21 08:23 Cephalexin HCl (Cephalexin 500 Mg Cap) 500 mg PO QID [facility]; Protocol Stop: 06/27/21 08:59 Last Admin: 06/21/21 12:12 Dose: 500 mg Documented by: Enoxaparin Sodium (Enoxaparin Inj 120 Mg/0.8 Ml Syr) 120 mg SQ Q12 [facility] Stop: 07/20/21 09:29 Last Admin: 06/21/21 08:44 Dose: 120 mg Documented by: Furosemide (Furosemide 20 Mg Tab) 20 mg PO QAM [facility] Stop: 07/20/21 08:59 Last Admin: 06/21/21 08:45 Dose: 20 mg Documented by: Losartan Potassium (Losartan Potassium 25 Mg Tab) 25 mg PO QAM [facility] Stop: 07/21/21 12:14 Metoprolol Tartrate (Metoprolol Tartrate 25 Mg Tab) 25 mg PO BID [facility] Stop: 07/20/21 08:59 Last Admin: 06/20/21 20:21 Dose: 25 mg Documented by: Metoprolol Tartrate (Metoprolol Tartrate 25 Mg Tab) 25 mg PO QAM [facility] Stop: 06/21/21 14:00 Last Admin: 06/21/21 12:12 Dose: 25 mg Documented by: Umeclidinium/Vilanterol (Umeclidinium/Vilanterol 62.5/25mcg 7 Puffs/Inhaler) 1 puffs INH DAILY [facility] Stop: 07/20/21 08:59 Last Admin: 06/21/21 08:45 Dose: 1 puffs Documented by:
[2021-06-21] MEDS: LOSARTAN POTASSIUM 25 MG TAB PO SCH (13:30)
[2021-06-21] MEDS: METOPROLOL TARTRATE 25 MG TAB PO SCH (21:33)
--- NOTE | 2021-06-21 23:00 | Electrocardiogram Report ---
Test Reason : Blood Pressure : / mmHG Vent. Rate : 122 BPM Atrial Rate : 133 BPM P-R Int : 000 ms QRS Dur : 138 ms QT Int : 374 ms P-R-T Axes : 000 -73 091 degrees QTc Int : 532 ms Poor data quality, interpretation may be adversely affected Atrial fibrillation with rapid ventricular response with premature ventricular or aberrantly conducte d complexes Right bundle branch block Left anterior fascicular block Bifascicular block Possible Lateral infarct (cited on or before 06-APR-2006) Abnormal ECG When compared with ECG of 17-JUN-2021 12:13, Atrial fibrillation has replaced Sinus rhythm Vent. rate has increased BY 40 BPM Confirmed by John Maldonado ([id number]) on 06/21/2021 11:00:23 PM Referred By: REFERRED SELF Confirmed By:John Maldonado
[2021-06-22 06:34] LABS: Basophils # (auto) 0.02 K/uL (0-0.2); Basophils % (auto) 0.2 %; Eosinophils % (auto) 1.7 %; Hematocrit (blood only) 50.5 % (42-52); Hemoglobin 15.6 g/dL (14.0-18.0); Immature Granulocytes # (auto) 0.03 K/uL (0.00-0.02); Immature Granulocytes % (auto) 0.3 %; Lymphocytes # (auto) 1.47 K/uL (1.2-3.4); Lymphocytes % (auto) 12.9 %; Mean Corpuscular Hemoglobin 30.1 pg (25-34); Mean Corpuscular Hgb Conc 30.9 g/dL (32-36); Mean Corpuscular Volume 97.3 fL (80-100); Mean Platelet Volume 9.8 fL (7.4-10.4); Monocytes # (auto) 1.24 K/uL (0.11-0.59); Monocytes % (auto) 10.8 %; Neutrophils # (auto) 8.47 K/uL (1.4-6.5); Neutrophils % (auto) 74.1 %; Platelet Count 186 K/uL (130-400); RDW Coefficient of Variation 14.5 % (11.5-14.5); RDW Standard Deviation 51.9 fL (36.4-46.3); Red Blood Count 5.19 M/uL (4.7-6.1); White Blood Count 11.43 K/uL (4.8-10.8)
[2021-06-22 07:04] LABS: BUN Creatinine Ratio 21.6 (10-20); Calcium 8.4 mg/dl (8.5-10.1); Est GFR (African American) 100.6 ml/min; Est GFR (Non-African American) 86.8 ml/min; Magnesium 2.4 mg/dl (1.8-2.4); Phosphorus 2.4 mg/dl (2.5-4.9)
[2021-06-22] MEDS: cephALEXin 500 MG CAP PO SCH ×4 (08:45→21:14)
[2021-06-22] MEDS: ENOXAPARIN INJ 120 MG/0.8 ML SYR SQ SCH ×2 (08:45→21:14)
[2021-06-22] MEDS: LOSARTAN POTASSIUM 25 MG TAB PO SCH (08:46)
[2021-06-22] MEDS: FUROSEMIDE 20 MG TAB PO SCH (08:46)
[2021-06-22] MEDS: METOPROLOL TARTRATE 25 MG TAB PO SCH ×3 (08:46→21:15)
[2021-06-22] MEDS: UMECLIDINIUM/VILANTEROL 62.5/25MCG 7 PUFFS/INHALER INH SCH (08:47)
--- NOTE | 2021-06-22 10:29 | Cardiology Progress Note ---
Date of Service June 22, 2021 Assessment & Plan (1) Atrial tachycardia, multifocal: (2) Acute hypoxemic respiratory failure: (3) COPD (chronic obstructive pulmonary disease): (4) Cor pulmonale: (5) HTN (hypertension): (6) Bifascicular block: Plan: Patient is a 60-year-old male presenting with hypercapnic and hypoxic respiratory failure, Covid pneumonia with lapse into atrial tachycardia with rhythm strips demonstrating atrial fibrillation, atypical atrial flutter as well as multifocal atrial tachycardia currently. Treatment with beta-blockers on initiationwas notable for transient conversion to sinus bradycardia and junctional rhythm P Recommendations: Patient appropriately anticoagulated currently will likely need conversion to warfarin Rhythm now is predominantly atrial fibrillation/atypical flutter. No bradycardia arrhythmias. Will increase metoprolol dosing and maintain telemetry given conduction abnormalities/bifascicular heart block Continue treatment of underlying pulmonary issues Hypertension improved with low-dose losartan Admission and Anticipated Discharge Date Admission Date: June 17, 2021 Subjective Patient was seen and examined, chart, medications, telemetry reviewed. Patient without complaint this morning but remains in atrial tachycardia/atrial fibrillation overnight heart rates 120s to 130s. Patient not aware of tachyarrhythmias. Notes no chest pains dizziness or lightheadedness. Notes no worsening edema or cough. Still with oxygen demands No pauses or bradycardia arrhythmias on telemetry Review of Systems Review of Systems: All systems reviewed & are unremarkable except as noted in Subjective Physical Exam Constitutional: no acute distress Eyes: PERRL, conjunctivae normal, anicteric sclerae ENMT: external ear and nose normal, oropharynx normal Mouth: + dentition abnormality (Overall poor dentition) Neck: trachea midline, no thyromegaly Respiratory: Auscultation: + diminished lung sounds and + crackles (Right greater than left) Cardiovascular: Rate/Rhythm: + tachycardic and + irregularly irregular Heart Sounds: normal S1 and normal S2; no gallop and no murmur Palpation: normal PMI Vessels: normal carotid upstroke and radial pulses present; no JVD and no carotid bruit Extremities: + edema (1-2+ bilateral lower extremity edema with stasis changes) Gastrointestinal (Abdomen): normal bowel sounds, soft, nontender, no hepatosplenomegaly Musculoskeletal: Head/Neck/Chest: normocephalic; + evidence of head trauma (Mild abrasion forehead) Skin: no rashes, warm and dry Neurologic: PERRL, EOMI, accommodation nl, no face palsy, no dysarthria Psychiatric: A+Ox3, euthymic affect Results & Data ([facility]) Vital Signs (Past 12 Hours) Vital Signs Temp Pulse Resp BP Pulse Ox Pulse Ox 06/22/21 09:53 94 06/22/21 07:41 36.6 C 133 H 22 107/86 94 06/22/21 04:05 36.7 C 127 H 22 100/73 94 06/21/21 23:48 36.9 C 115 H 19 101/64 Laboratory Results Laboratory Results - last 24 hr 06/22/21 06/22/21 05:52 05:52 WBC 11.43 H RBC 5.19 Hgb 15.6 Hct 50.5 MCV 97.3 MCH 30.1 MCHC 30.9 L RDW Std Deviation 51.9 H RDW Coeff of Rosanna 14.5 Plt Count 186 MPV 9.8 Immature Gran % (Auto) 0.3 Neut % (Auto) 74.1 Lymph % (Auto) 12.9 [place] % (Auto) 10.8 Eos % (Auto) 1.7 Baso % (Auto) 0.2 Neut # (Auto) 8.47 H Lymph # (Auto) 1.47 [place] # (Auto) 1.24 H Eos # (Auto) 0.20 Baso # (Auto) 0.02 Immature Gran # (Auto) 0.03 H Sodium 138 Potassium 4.0 Chloride 102 Carbon Dioxide 30 Anion Gap 6.0 BUN 21 H Creatinine 0.96 Est Cr Clr Drug Dosing 115.0 Est GFR ( Amer) 100.6 Est GFR (Non-Af Amer) 86.8 BUN/Creatinine Ratio 21.6 H Glucose 114 H Calcium 8.4 L Phosphorus 2.4 L Magnesium 2.4
--- NOTE | 2021-06-22 12:40 | Hospitalist Progress Note ---
Date of Service June 22, 2021 Assessment & Plan (1) Acute hypoxemic respiratory failure: Plan: Patient is 60 y/o M with PMH venous insufficiency, tobacco use, dyslipidemia, h/o impaired fasting glucose, obesity presented to ER with c/o SOB x 3 days. Acute hypoxic respiratory failure with hypercarbia Multifactorial likely secondary to obesity hypoventilation syndrome,obstructive lung disease, cor pulmonale and complicated by COVID-19 infection Required intubation in the emergency room on admission Status post extubation on 06/19/2021 Appreciate emergency room physician assistant input and recommendation Has been feeling much better and saturating on oxygen mask Trial of CPAP tonight Will need outpatient polysomnography on discharge Clinically much better and he has been saturating on 2 L nasal cannula oxygen Denies any shortness of breath at rest Has been requiring about 6 L of oxygen to maintain saturation We will do nocturnal pulse oximetry and to a stable O2 saturation before discharge Atrial fibrillation with RVR Developed atrial fibrillation and has been showing significant pauses up to 3.6 seconds Has been on Lovenox 120 mg twice daily Beta-rose has been started Appreciate cardiology input and recommendation-no intravenous beta-rose and lisinopril has been added Heart rate remains controlled (2) COPD (chronic obstructive pulmonary disease): Plan: Has been a chronic smoker with chronic cough and shortness of breath Has COPD with exacerbation and is complicated by COVID-19 virus infection We will continue with steroid and bronchodilators as advised by emergency room physician assistant Clinically improving (3) Upper GI bleed: Plan: Noted to have coffee-ground emesis Has been on intravenous octreotide and PPI Hemoglobin remains stable Given the history of alcoholism GI consultation was obtained Appreciate GI input and recommendation No EGD as of now Hemoglobin remains stable (4) Fluid overload: Plan: Likely has cor pulmonale with cardiomegaly, leg edema and small right pleural effusion Noted to have fluid overload with component of cor pulmonale CTA did not show cardiomegaly and small right pleural effusion No overt pulmonary congestion Echo did show grade 1 diastolic dysfunction with normal systolic function and possible mild pulmonary hypertension Has been getting Lasix and Diamox Diuresing enough Lasix have been given orally 20 mg daily (5) Bilateral lower leg cellulitis: Plan: History of venous insufficiency Has bilateral leg cellulitis with a few ulcerations involving the leg skin In ER given Zosyn and Dapto Blood cultures have been negative Will de-escalate antibiotic from tomorrow Antibiotic is changed to oral Keflex Legs are looking better DVT Prophylaxis -Lovenox-has been on hold due to possible GI bleed -Has been on Lovenox 120 mg twice daily No family members are available to discuss the case He does not have any connection with any of his family members We will transfer to telemetry unit (6) Acute hypercapnic respiratory failure: Plan: As above (7) COVID-19: Plan: He is fully vaccinated Has been complaining of increasing shortness of breath for the last 3 days CTA chest did not show any pulmonary embolism but did show small right pleural effusion and minimal bibasilar consolidation Has been on intravenous dexamethasone but no remdesivir and/or other medications We will continue dexamethasone Admission and Anticipated Discharge Date Admission Date: June 17, 2021 Subjective 06/18/2021 The patient was seen and examined in ICU and in the Covid room He remains intubated and sedated Opens eyes with command 06/19/2021 The patient was seen and examined in ICU He is extubated and has been on oxygen mask to maintain saturation He has been feeling much better now Further information regarding this admission: He is a smoker and social drinker. He has not been to his primary care physician for more than 2 years and he does not take any prescription medicine. He had been having shortness of breath with cough about 3 days before admission without any fever and/or chills. He texted his boss on the morning of admission that he is feeling short of breath and needs to go to the hospital and after that he cannot remember anything until after extubation this morning. June 20, 2021 Patient was seen and examined in ICU and in the Covid room He has been feeling much better and is on 2 L of oxygen via nasal cannula to maintain saturation Unfortunately he was noted to have a fever with RVR and also significant pause of more than 3.6 seconds He denies any symptoms of palpitation and/or shortness of breath or chest pain 06/21/2021 The patient was seen and examined in telemetry unit and in the Covid room He has been feeling much better regarding his breathing and cough but remains extremely tired and lethargic Heart rate remains elevated but no more pauses -06/22/2021 The patient was seen and examined in telemetry unit and in the Covid room He has been feeling reasonably better but is still requiring about 6 L of oxygen to maintain saturation He has been noncompliant with oxygen mask Denies any palpitation and/or chest pain Review of Systems Review of Systems: All systems reviewed and are unremarkable except as noted below Respiratory: Productive cough with minimal shortness of breath Physical Exam Physical Exam: Lying in bed with minimal distress due to cough and shortness of breath Constitutional: well developed, well nourished, + ill appearing and + obese Eyes: PERRL, conjunctivae normal, anicteric sclerae ENMT: external ear and nose normal, oropharynx normal Neck: trachea midline, no thyromegaly Respiratory: + respiratory distress (Minimal respiratory distress) and + cough (Productive of sputum) Auscultation: + diminished lung sounds and + crackles (Minimal crackles at the bases) Cardiovascular: Rate/Rhythm: regular rate and regular rhythm; not tachycardic Heart Sounds: normal S1 and normal S2; no murmur Extremities: + edema (Trace 1+ edema bilaterally with chronic skin changes and a few skin ulcer) Gastrointestinal (Abdomen): Inspection/Auscultation: + abdomen distended and normal bowel sounds Musculoskeletal: No acute arthritis in any joint Neurologic: Alert, awake and oriented x3 Lymphatic: no cervical or axillary lymphadenopathy Results & Data Results & Data ([facility]) Vital Signs (Past 12 Hours) Vital Signs Temp Pulse Resp BP Pulse Ox Pulse Ox 06/22/21 11:47 37.0 C 87 20 112/72 96 06/22/21 09:53 94 06/22/21 07:41 36.6 C 133 H 22 107/86 94 06/22/21 04:05 36.7 C 127 H 22 100/73 94 Laboratory Results Short CBC 06/22/21 Range/Units 05:52 WBC 11.43 H (4.8-10.8) K/uL Hgb 15.6 (14.0-18.0) g/dL Hct 50.5 (42-52) % Plt Count 186 (130-400) K/uL BMP 06/22/21 05:52 Sodium 138 Potassium 4.0 Chloride 102 Carbon Dioxide 30 BUN 21 H Creatinine 0.96 Glucose 114 H Calcium 8.4 L Medications Administered Current Inpatient Medications Albuterol (Albut/Ipratrop 3mg/0.5mg Neb 3 Ml Vial) 3 ml NEB Q4R PRN PRN Reason: Shortness Of Breath Or Wheezing Stop: 07/17/21 22:59 Albuterol (Albuterol Hfa 8 Gm Inhaler) 2 puffs INH Q4 PRN PRN Reason: Shortness Of Breath Stop: 07/20/21 08:23 Cephalexin HCl (Cephalexin 500 Mg Cap) 500 mg PO QID [facility]; Protocol Stop: 06/27/21 08:59 Last Admin: 06/22/21 08:45 Dose: 500 mg Documented by: Enoxaparin Sodium (Enoxaparin Inj 120 Mg/0.8 Ml Syr) 120 mg SQ Q12 [facility] Stop: 07/20/21 09:29 Last Admin: 06/22/21 08:45 Dose: 120 mg Documented by: Furosemide (Furosemide 20 Mg Tab) 20 mg PO QAM [facility] Stop: 07/20/21 08:59 Last Admin: 06/22/21 08:46 Dose: 20 mg Documented by: Losartan Potassium (Losartan Potassium 25 Mg Tab) 25 mg PO QAM [facility] Stop: 07/21/21 12:14 Last Admin: 06/22/21 08:46 Dose: 25 mg Documented by: Metoprolol Tartrate (Metoprolol Tartrate 25 Mg Tab) 25 mg PO TID [facility] Stop: 07/22/21 13:59 Umeclidinium/Vilanterol (Umeclidinium/Vilanterol 62.5/25mcg 7 Puffs/Inhaler) 1 puffs INH DAILY [facility] Stop: 07/20/21 08:59 Last Admin: 06/22/21 08:47 Dose: 1 puffs Documented by:
[2021-06-23 07:36] LABS: Basophils # (auto) 0.02 K/uL (0-0.2); Basophils % (auto) 0.2 %; Eosinophils # (auto) 0.21 K/uL (0-0.5); Eosinophils % (auto) 2.4 %; Immature Granulocytes # (auto) 0.03 K/uL (0.00-0.02); Immature Granulocytes % (auto) 0.3 %; Lymphocytes # (auto) 1.11 K/uL (1.2-3.4); Lymphocytes % (auto) 12.7 %; Mean Corpuscular Hemoglobin 30.2 pg (25-34); Mean Corpuscular Hgb Conc 30.6 g/dL (32-36); Mean Corpuscular Volume 98.6 fL (80-100); Mean Platelet Volume 10.1 fL (7.4-10.4); Monocytes # (auto) 1.27 K/uL (0.11-0.59); Monocytes % (auto) 14.5 %; Neutrophils % (auto) 69.9 %; Platelet Count 186 K/uL (130-400); RDW Coefficient of Variation 14.7 % (11.5-14.5); RDW Standard Deviation 53.6 fL (36.4-46.3); Red Blood Count 4.97 M/uL (4.7-6.1); White Blood Count 8.74 K/uL (4.8-10.8)
[2021-06-23 08:02] LABS: BUN Creatinine Ratio 21.5 (10-20); Calcium 8.6 mg/dl (8.5-10.1); Creatinine Clr Calc Pharmacy 123.9 ml/min; Est GFR (African American) 109.2 ml/min; Est GFR (Non-African American) 94.3 ml/min; Magnesium 2.5 mg/dl (1.8-2.4); Potassium 4.3 mmol/L (3.5-5.1)
[2021-06-23] MEDS: propofoL 1,000 MG/100 ML VIAL IV SCH ×2 (08:06→08:09)
[2021-06-23] MEDS: LOSARTAN POTASSIUM 25 MG TAB PO SCH (08:17)
[2021-06-23] MEDS: ENOXAPARIN INJ 120 MG/0.8 ML SYR SQ SCH (08:17)
[2021-06-23] MEDS: FUROSEMIDE 20 MG TAB PO SCH (08:17)
[2021-06-23] MEDS: UMECLIDINIUM/VILANTEROL 62.5/25MCG 7 PUFFS/INHALER INH SCH (08:18)
[2021-06-23] MEDS: METOPROLOL TARTRATE 25 MG TAB PO SCH ×2 (08:18→12:28)
[2021-06-23] MEDS: cephALEXin 500 MG CAP PO SCH ×4 (08:18→20:39)
--- NOTE | 2021-06-23 11:08 | Cardiology Progress Note ---
Date of Service June 23, 2021 Assessment & Plan (1) Atrial tachycardia, multifocal: (2) Acute hypoxemic respiratory failure: (3) COPD (chronic obstructive pulmonary disease): (4) Cor pulmonale: (5) HTN (hypertension): (6) Bifascicular block: (7) Paroxysmal atrial fibrillation: Plan: Patient is a 60-year-old male presenting with hypercapnic and hypoxic respiratory failure, Covid pneumonia with lapse into atrial tachycardia with rhythm strips demonstrating atrial fibrillation, atypical atrial flutter as well as multifocal atrial tachycardia currently. Treatment with beta-blockers on initiationwas notable for transient conversion to sinus bradycardia and junctional rhythm Rhythm subsequently intermittent multifocal atrial tachycardia and atrial fibrillation paroxysmal. Patient with conversion to sinus rhythm 06/22/2021 and no further arrhythmias Recommendations: Patient appropriately anticoagulated currently with Lovenox need conversion to warfarin versus Eliquis We will change metoprolol tartrate to metoprolol suc cinate Continue losartan as ordered for hypertension Treat underlying pulmonary issues. Urged tobacco cessation Admission and Anticipated Discharge Date Admission Date: June 17, 2021 Subjective Patient was seen and personally examined. No further atrial arrhythmias overnight and this morning. No bradycardia or pauses No chest pain or worsening shortness of breath still requiring 4 L oxygen supplementation. No productive cough. No worsening edema. Review of Systems Review of Systems: All systems reviewed & are unremarkable except as noted in Subjective Physical Exam Constitutional: no acute distress Eyes: PERRL, conjunctivae normal, anicteric sclerae ENMT: external ear and nose normal, oropharynx normal Mouth: + dentition abnormality (Overall poor dentition) Neck: trachea midline, no thyromegaly Respiratory: Auscultation: + diminished lung sounds and + rhonchi (Coarse rhonchi with forced cough) Cardiovascular: Rate/Rhythm: regular rhythm Heart Sounds: normal S1 and no rmal S2; no gallop and no murmur Palpation: normal PMI Vessels: normal carotid upstroke and radial pulses present; no JVD and no carotid bruit Extremities: + edema (1-2+ bilateral lower extremity edema with stasis changes) Gastrointestinal (Abdomen): normal bowel sounds, soft, nontender, no hepatosplenomegaly Musculoskeletal: Head/Neck/Chest: normocephalic; + evidence of head trauma (Mild abrasion forehead) Skin: no rashes, warm and dry Neurologic: PERRL, EOMI, accommodation nl, no face palsy, no dysarthria Psychiatric: A+Ox3, euthymic affect Results & Data ([facility]) Vital Signs (Past 12 Hours) Vital Signs Temp Pulse Pulse Resp BP BP Pulse Ox 06/23/21 08:00 73 06/23/21 07:29 37.1 C 83 22 158/91 H 95 06/23/21 04:00 37.0 C 81 20 135/86 93 06/23/21 00:00 36.5 C 85 73 126/92 95 Pulse Ox 06/23/21 08:00 94 06/23/21 07:29 06/23/21 04:00 06/23/21 00:00 Laboratory Results Laboratory Results - last 24 hr 06/23/21 06/23/21 06:31 06:31 WBC 8.74 RBC 4.97 Hgb 15.0 Hct 49.0 MCV 98.6 MCH 30.2 MCHC 30.6 L RDW Std Deviation 53.6 H RDW Coeff of Rosanna 14.7 H Plt Count 186 MPV 10.1 Immature Gran % (Auto) 0.3 Neut % (Auto) 69.9 Lymph % (Auto) 12.7 [place] % (Auto) 14.5 Eos % (Auto) 2.4 Baso % (Auto) 0.2 Neut # (Auto) 6.10 Lymph # (Auto) 1.11 L [place] # (Auto) 1.27 H Eos # (Auto) 0.21 Baso # (Auto) 0.02 Immature Gran # (Auto) 0.03 H Sodium 140 Potassium 4.3 Chloride 103 Carbon Dioxide 33 H Anion Gap 4.0 BUN 19 H Creatinine 0.89 Est Cr Clr Drug Dosing 123.9 Est GFR ( Amer) 109.2 Est GFR (Non-Af Amer) 94.3 BUN/Creatinine Ratio 21.5 H Glucose 103 H Calcium 8.6 Phosphorus 3.0 Magnesium 2.5 H
--- NOTE | 2021-06-23 13:27 | Hospitalist Progress Note ---
Date of Service June 23, 2021 Assessment & Plan (1) Acute hypoxemic respiratory failure: Plan: Patient is 60 y/o M with PMH venous insufficiency, tobacco use, dyslipidemia, h/o impaired fasting glucose, obesity presented to ER with c/o SOB x 3 days. Acute hypoxic respiratory failure with hypercarbia Multifactorial likely secondary to obesity hypoventilation syndrome,obstructive lung disease, cor pulmonale and complicated by COVID-19 infection Required intubation in the emergency room on admission Status post extubation on 06/19/2021 Appreciate trailer body assembler input and recommendation Has been feeling much better and saturating on oxygen mask Trial of CPAP tonight Will need outpatient polysomnography on discharge Clinically much better and he has been saturating on 2 L nasal cannula oxygen Denies any shortness of breath at rest Condition has improved and has been requiring up to 4 L to maintain saturation We will get a nocturnal pulse oximetry tonight and a 2 step O2 saturation test tomorrow morning for possible discharge tomorrow We will need to have an outpatient sleep study Atrial fibrillation with RVR Developed atrial fibrillation and has been showing significant pauses up to 3.6 seconds Has been on Lovenox 120 mg twice daily Beta-rose has been started Appreciate cardiology input and recommendation-no intravenous beta-rose and lisinopril has been added Heart rate remains controlled Discussed with the patient and will start Eliquis for atrial fibrillation (2) COPD (chronic obstructive pulmonary disease): Plan: Has been a chronic smoker with chronic cough and shortness of breath Has COPD with exacerbation and is complicated by COVID-19 virus infection We will continue with steroid and bronchodilators as advised by trailer body assembler Clinically improving Will need oxygen on discharge and may need oxygen continuously (3) Upper GI bleed: Plan: Noted to have coffee-ground emesis Has been on intravenous octreotide and PPI Hemoglobin remains stable Given the history of alcoholism GI consultation was obtained Appreciate GI input and recommendation No EGD as of now Hemoglobin remains stable (4) Fluid overload: Plan: Likely has cor pulmonale with cardiomegaly, leg edema and small right pleural effusion Noted to have fluid overload with component of cor pulmonale CTA did not show cardiomegaly and small right pleural effusion No overt pulmonary congestion Echo did show grade 1 diastolic dysfunction with normal systolic function and possible mild pulmonary hypertension Has been getting Lasix and Diamox Diuresing enough Lasix have been given orally 20 mg daily (5) Bilateral lower leg cellulitis: Plan: History of venous insufficiency Has bilateral leg cellulitis with a few ulcerations involving the leg skin In ER given Zosyn and Dapto Blood cultures have been negative Will de-escalate antibiotic from tomorrow Antibiotic is changed to oral Keflex Legs are looking better-we will finish the course of antibiotic for about 10 days DVT Prophylaxis -Lovenox-has been on hold due to possible GI bleed -Has been on Lovenox 120 mg twice daily -Lovenox stopped and take started with Eliquis 5 mg twice daily for atrial fibrillation No family members are available to discuss the case He does not have any connection with any of his family members We will transfer to telemetry unit (6) Acute hypercapnic respiratory failure: Plan: As above (7) COVID-19: Plan: He is fully vaccinated Has been complaining of increasing shortness of breath for the last 3 days CTA chest did not show any pulmonary embolism but did show small right pleural effusion and minimal bibasilar consolidation Has been on intravenous dexamethasone but no remdesivir and/or other medications We will continue dexamethasone Admission and Anticipated Discharge Date Admission Date: June 17, 2021 Subjective 06/18/2021 The patient was seen and examined in ICU and in the Covid room He remains intubated and sedated Opens eyes with command 06/19/2021 The patient was seen and examined in ICU He is extubated and has been on oxygen mask to maintain saturation He has been feeling much better now Further information regarding this admission: He is a smoker and social drinker. He has not been to his primary care physician for more than 2 years and he does not take any prescription medicine. He had been having shortness of breath with cough about 3 days before admission without any fever and/or chills. He texted his boss on the morning of admission that he is feeling short of breath and needs to go to the hospital and after that he cannot remember anything until after extubation this morning. June 20, 2021 Patient was seen and examined in ICU and in the Covid room He has been feeling much better and is on 2 L of oxygen via nasal cannula to maintain saturation Unfortunately he was noted to have a fever with RVR and also significant pause of more than 3.6 seconds He denies any symptoms of palpitation and/or shortness of breath or chest pain 06/21/2021 The patient was seen and examined in telemetry unit and in the Covid room He has been feeling much better regarding his breathing and cough but remains extremely tired and lethargic Heart rate remains elevated but no more pauses -06/22/2021 The patient was seen and examined in telemetry unit and in the Covid room He has been feeling reasonably better but is still requiring about 6 L of oxygen to maintain saturation He has been noncompliant with oxygen mask Denies any palpitation and/or chest pain 06/23/2021 The patient was seen and examined in telemetry unit and in the Covid room He has been feeling much better today His breathing seems to be controlled but has been requiring up to 4 L of oxygen to maintain saturation He has had physical therapy and recommended home Review of Systems Review of Systems: All systems reviewed and are unremarkable except as noted below Respiratory: Productive cough with minimal shortness of breath Physical Exam Physical Exam: Lying in bed with minimal distress due to cough and shortness of breath Constitutional: well developed, well nourished, + ill appearing and + obese Eyes: PERRL, conjunctivae normal, anicteric sclerae ENMT: external ear and nose normal, oropharynx normal Neck: trachea midline, no thyromegaly Respiratory: + respiratory distress (Minimal respiratory distress) and + cough (Productive of sputum) Auscultation: + diminished lung sounds and + crackles (Minimal crackles at the bases) Cardiovascular: Rate/Rhythm: regular rate and regular rhythm; not tachycardic Heart Sounds: normal S1 and normal S2; no murmur Extremities: + edema (Trace 1+ edema bilaterally with chronic skin changes and a few skin ulcer) Gastrointestinal (Abdomen): Inspection/Auscultation: + abdomen distended and normal bowel sounds Musculoskeletal: No acute arthritis in any joint Neurologic: Alert, awake and oriented x3. No focal sensory or motor deficit appreciated Lymphatic: no cervical or axillary lymphadenopathy Results & Data Results & Data ([facility]) Vital Signs (Past 12 Hours) Vital Signs Temp Pulse Pulse Resp BP BP Pulse Ox 06/23/21 11:14 37.1 C 73 18 117/75 97 06/23/21 08:00 73 06/23/21 07:29 37.1 C 83 22 158/91 H 95 06/23/21 04:00 37.0 C 81 20 135/86 93 Pulse Ox 06/23/21 11:14 06/23/21 08:00 94 06/23/21 07:29 06/23/21 04:00 Laboratory Results Short CBC 06/23/21 Range/Units 06:31 WBC 8.74 (4.8-10.8) K/uL Hgb 15.0 (14.0-18.0) g/dL Hct 49.0 (42-52) % Plt Count 186 (130-400) K/uL BMP 06/23/21 06:31 Sodium 140 Potassium 4.3 Chloride 103 Carbon Dioxide 33 H BUN 19 H Creatinine 0.89 Glucose 103 H Calcium 8.6 Medications Administered Current Inpatient Medications Albuterol (Albut/Ipratrop 3mg/0.5mg Neb 3 Ml Vial) 3 ml NEB Q4R PRN PRN Reason: Shortness Of Breath Or Wheezing Stop: 07/17/21 22:59 Albuterol (Albuterol Hfa 8 Gm Inhaler) 2 puffs INH Q4 PRN PRN Reason: Shortness Of Breath Stop: 07/20/21 08:23 Apixaban (Apixaban 5 Mg Tablet) 5 mg PO BID [facility] Stop: 07/23/21 20:59 Cephalexin HCl (Cephalexin 500 Mg Cap) 500 mg PO QID [facility]; Protocol Stop: 06/27/21 08:59 Last Admin: 06/23/21 12:28 Dose: 500 mg Documented by: Furosemide (Furosemide 20 Mg Tab) 20 mg PO QAM [facility] Stop: 07/20/21 08:59 Last Admin: 06/23/21 08:17 Dose: 20 mg Documented by: Losartan Potassium (Losartan Potassium 25 Mg Tab) 25 mg PO QAM [facility] Stop: 07/21/21 12:14 Last Admin: 06/23/21 08:17 Dose: 25 mg Documented by: Metoprolol Succinate (Metoprolol Succ 25mg Ext Rel Tab) 25 mg PO BID [facility] Stop: 07/23/21 20:59 Metoprolol Tartrate (Metoprolol Tartrate 25 Mg Tab) 25 mg PO TID [facility] Stop: 07/22/21 13:59 Last Admin: 06/23/21 12:28 Dose: 25 mg Documented by: Umeclidinium/Vilanterol (Umeclidinium/Vilanterol 62.5/25mcg 7 Puffs/Inhaler) 1 puffs INH DAILY [facility] Stop: 07/20/21 08:59 Last Admin: 06/23/21 08:18 Dose: 1 puffs Documented by:
[2021-06-23] MEDS: APIXABAN 5 MG TABLET PO SCH (20:41)
[2021-06-23] MEDS: METOPROLOL SUCC 25MG EXT REL TAB PO SCH (20:41)
[2021-06-24 06:21] LABS: Basophils # (auto) 0.02 K/uL (0-0.2); Basophils % (auto) 0.2 %; Eosinophils # (auto) 0.27 K/uL (0-0.5); Hematocrit (blood only) 46.5 % (42-52); Hemoglobin 14.2 g/dL (14.0-18.0); Immature Granulocytes # (auto) 0.02 K/uL (0.00-0.02); Immature Granulocytes % (auto) 0.2 %; Lymphocytes # (auto) 1.33 K/uL (1.2-3.4); Lymphocytes % (auto) 14.9 %; Mean Corpuscular Hgb Conc 30.5 g/dL (32-36); Mean Corpuscular Volume 98.1 fL (80-100); Mean Platelet Volume 9.7 fL (7.4-10.4); Monocytes % (auto) 13.5 %; Neutrophils # (auto) 6.07 K/uL (1.4-6.5); Neutrophils % (auto) 68.2 %; Platelet Count 197 K/uL (130-400); RDW Coefficient of Variation 14.5 % (11.5-14.5); RDW Standard Deviation 52.6 fL (36.4-46.3); Red Blood Count 4.74 M/uL (4.7-6.1); White Blood Count 8.91 K/uL (4.8-10.8)
[2021-06-24 07:07] LABS: BUN Creatinine Ratio 20.5 (10-20); Calcium 8.6 mg/dl (8.5-10.1); Creatinine Clr Calc Pharmacy 131.1 ml/min; Est GFR (African American) 112.4 ml/min; Magnesium 2.5 mg/dl (1.8-2.4); Phosphorus 2.6 mg/dl (2.5-4.9); Potassium 4.3 mmol/L (3.5-5.1)
[2021-06-24] MEDS: LOSARTAN POTASSIUM 25 MG TAB PO SCH (07:40)
[2021-06-24] MEDS: METOPROLOL SUCC 25MG EXT REL TAB PO SCH (07:40)
[2021-06-24] MEDS: cephALEXin 500 MG CAP PO SCH ×4 (07:40→20:18)
[2021-06-24] MEDS: APIXABAN 5 MG TABLET PO SCH ×2 (07:41→20:18)
[2021-06-24] MEDS: UMECLIDINIUM/VILANTEROL 62.5/25MCG 7 PUFFS/INHALER INH SCH (07:41)
[2021-06-24] MEDS: FUROSEMIDE 20 MG TAB PO SCH (07:41)
[2021-06-24] MEDS ORDERED: METOPROLOL SUCC 25MG EXT REL TAB PO ONE (10:41)
--- NOTE | 2021-06-24 13:20 | Cardiology Progress Note ---
Date of Service June 24, 2021 Assessment & Plan (1) Paroxysmal atrial fibrillation: (2) Atrial tachycardia, multifocal: (3) Bifascicular block: (4) COPD (chronic obstructive pulmonary disease): (5) Cor pulmonale: (6) Acute hypoxemic respiratory failure: (7) COVID-19: Plan: Patient is a 60-year-old male presenting with hypercapnic and hypoxic respiratory failure, Covid pneumonia with lapse into atrial tachycardia with rhythm strips demonstrating atrial fibrillation, atypical atrial flutter as well as multifocal atrial tachycardia currently. Treatment with beta-blockers on initiationwas notable for transient conversion to sinus bradycardia and juncti onal rhythm Rhythm subsequently intermittent multifocal atrial tachycardia and atrial fibrillation paroxysmal. Patient with conversion to sinus rhythm 06/22/2021 Patient now with spontaneous lapsed into A. fib fib flutter early this morning. Rates elevated despite oral Recommendations: We will give IV amiodarone load holding further Toprol given underlying bifascicular heart block. Will need to proceed cautiously in order to avoid further AV block Reevaluate rhythm and rate in a.m. with EKG Patient appropriately anticoagulated with Eliquis Would avoid hypoxia if possible Admission and Anticipated Discharge Date Admission Date: June 17, 2021 Subjective Patient was seen and examined, chart, medications, telemetry reviewed. Patient lapsed back into atrial tachycardia likely atypical atrial flutter earlier this morning. Patient aware of tachypalpitations but no acute complaints no chest pains or worsening shortness of breath. Still with rhonchorous cough nonproductive. Review of Systems Review of Systems: All systems reviewed & are unremarkable except as noted in Subjective Physical Exam Constitutional: no acute distress Eyes: PERRL, conjunctivae normal, anicteric sclerae ENMT: external ear and nose normal, oropharynx normal Mouth: + dentition abnormality (Overall poor dentition) Neck: trachea midline, no thyromegaly Respiratory: no labored breathing Auscultation: + diminished lung sounds and + rhonchi (Coarse rhonchi with forced cough) Cardiovascular: Rate/Rhythm: regular rhythm and + tachycardic Heart Sounds: normal S1 and normal S2; no gallop and no murmur Palpation: normal PMI Vessels: normal carotid upstroke and radial pulses present; no JVD and no carotid bruit Extremities: + edema (1-2+ bilateral lower extremity edema with chronic stasis changes ) Gastrointestinal (Abdomen): normal bowel sounds, soft, nontender, no hepatosplenomegaly Musculoskeletal: Head/Neck/Chest: normocephalic; + evidence of head trauma (Mild abrasion forehead) Skin: no rashes, warm and dry Neurologic: PERRL, EOMI, accommodation nl, no face palsy, no dysarthria Psychiatric: A+Ox3, euthymic affect Results & Data ([facility]) Vital Signs (Past 12 Hours) Vital Signs Temp Pulse Pulse Pulse Pulse Pulse Resp 06/24/21 08:19 120 H 117 H 117 H 119 H 06/24/21 08:00 06/24/21 07:39 36.9 C 126 H 18 06/24/21 03:52 83 06/24/21 03:34 36.7 C 80 20 Resp Resp Resp Resp BP Pulse Ox Pulse Ox 06/24/21 08:19 18 20 20 18 90 06/24/21 08:00 06/24/21 07:39 134/87 94 06/24/21 03:52 06/24/21 03:34 134/79 93 Pulse Ox Pulse Ox Pulse Ox Pulse Ox 06/24/21 08:19 89 L 91 87 L 06/24/21 08:00 94 06/24/21 07:39 06/24/21 03:52 93 06/24/21 03:34 Laboratory Results Laboratory Results - last 24 hr 06/24/21 06/24/21 05:50 05:50 WBC 8.91 RBC 4.74 Hgb 14.2 Hct 46.5 MCV 98.1 MCH 30.0 MCHC 30.5 L RDW Std Deviation 52.6 H RDW Coeff of Rosanna 14.5 Plt Count 197 MPV 9.7 Immature Gran % (Auto) 0.2 Neut % (Auto) 68.2 Lymph % (Auto) 14.9 [place] % (Auto) 13.5 Eos % (Auto) 3.0 Baso % (Auto) 0.2 Neut # (Auto) 6.07 Lymph # (Auto) 1.33 [place] # (Auto) 1.20 H Eos # (Auto) 0.27 Baso # (Auto) 0.02 Immature Gran # (Auto) 0.02 Sodium 138 Potassium 4.3 Chloride 103 Carbon Dioxide 33 H Anion Gap 2.0 L BUN 17 Creatinine 0.83 Est Cr Clr Drug Dosing 131.1 Est GFR ( Amer) 112.4 Est GFR (Non-Af Amer) 97.0 BUN/Creatinine Ratio 20.5 H Glucose 104 H Calcium 8.6 Phosphorus 2.6 Magnesium 2.5 H Medications Administered Current Medications Albuterol (Albut/Ipratrop 3mg/0.5mg Neb 3 Ml Vial) 3 ml NEB Q4R PRN PRN Reason: Shortness Of Breath Or Wheezing Stop: 07/17/21 22:59 Albuterol (Albuterol Hfa 8 Gm Inhaler) 2 puffs INH Q4 PRN PRN Reason: Shortness Of Breath Stop: 07/20/21 08:23 Apixaban (Apixaban 5 Mg Tablet) 5 mg PO BID [facility] Stop: 07/23/21 20:59 Last Admin: 06/24/21 07:41 Dose: 5 mg Documented by: Cephalexin HCl (Cephalexin 500 Mg Cap) 500 mg PO QID [facility]; Protocol Stop: 06/27/21 08:59 Last Admin: 06/24/21 12:28 Dose: 500 mg Documented by: Furosemide (Furosemide 20 Mg Tab) 20 mg PO QAM [facility] Stop: 07/20/21 08:59 Last Admin: 06/24/21 07:41 Dose: 20 mg Documented by: Losartan Potassium (Losartan Potassium 25 Mg Tab) 25 mg PO QAM [facility] Stop: 07/21/21 12:14 Last Admin: 06/24/21 07:40 Dose: 25 mg Documented by: Metoprolol Succinate (Metoprolol Succ 25mg Ext Rel Tab) 25 mg PO BID [facility] Stop: 07/23/21 20:59 Last Admin: 06/24/21 07:40 Dose: 25 mg Documented by: Metoprolol Tartrate (Metoprolol Tartrate 25 Mg Tab) 25 mg PO TID [facility] Stop: 07/22/21 13:59 Last Admin: 06/23/21 12:28 Dose: 25 mg Documented by: Umeclidinium/Vilanterol (Umeclidinium/Vilanterol 62.5/25mcg 7 Puffs/Inhaler) 1 puffs INH DAILY [facility] Stop: 07/20/21 08:59 Last Admin: 06/24/21 07:41 Dose: 1 puffs Documented by:
[2021-06-24] MEDS ORDERED: AMIODARONE / D5W 150 MG/100 ML BAG IV ONE (13:45)
[2021-06-24] MEDS ORDERED: 0.2 MICRON FILTER SET 1 EA IV ONE ×2 (13:45→15:45)
[2021-06-24] MEDS: AMIODARONE / D5W 360 MG/200 ML BAG IV SCH (15:59)
--- NOTE | 2021-06-24 16:02 | Hospitalist Progress Note ---
Date of Service June 24, 2021 Assessment & Plan (1) Atrial tachycardia, multifocal: (2) Paroxysmal atrial fibrillation: (3) Acute hypoxemic respiratory failure: (4) Acute hypercapnic respiratory failure: (5) Bilateral lower leg cellulitis: Plan: 60 y/o M with H venous insufficiency, tobacco use, dyslipidemia, h/o impaired fasting glucose, obesity presented to ER 06/17 with c/o SOB x 3 days [employer]. Is being managed for the following: #.Acute hypoxemic respiratory failure #. Acute hypercapnic respiratory failure #. Acute exacerbation of COPD #. COVID-19 virus infection - vaccinated; s/p dexa; no remdesivir/other meds. Presented to ER 06/17 with c/o SOB x 3 days [employer]. Not on Home O2. Acute hypoxic respiratory failure with hypercarbia Intubated in the ED 06/17---> transferred to ICU care---> extubated 06/19. Multifactorial likely secondary to obesity hypoventilation syndrome,obstructive lung disease, cor pulmonale and complicated by COVID-19 infection After extubation, has been feeling much better and saturating well, currently on nasal cannula oxygen. Denies any shortness of breath at rest. Needs outpatient polysomnography on discharge 06/24 two-step: will need home O2. 06/24 nocturnal pulse ox: was on 2L Oxymask, Pt took the Oxymask off repeatedly throuhgout the night per RN. Continue with nebulization, supplemental oxygen, supportive management. Getting better. Continue to monitor. #. Atrial fibrillation with RVR Developed atrial fibrillation and has been showing significant pauses up to 3.6 seconds Initially on therapeutic dose Lovenox, transitioned to Eliquis Continue with beta-rose [started], continue telemetry His heart rate in 120s today. Cardiology on board: Amiodarone infusion, EKG in a.m. Metoprolol on hold. #. Upper GI bleed: Noted to have coffee-ground emesis Has been on intravenous octreotide and PPI Hemoglobin remains stable Given the history of alcoholism GI consultation was obtained Appreciate GI input and recommendation No EGD as of now Hemoglobin remains stable #. Fluid overload: Likely has cor pulmonale with cardiomegaly, leg edema and small right pleural effusion Noted to have fluid overload with component of cor pulmonale CTA did not show cardiomegaly and showed small right pleural effusion No overt pulmonary congestion Echo did show grade 1 diastolic dysfunction with normal systolic function and possible mild pulmonary hypertension IandOs so far -13.7 L c/w lasix 20 daily. #. Bilateral lower leg cellulitis: #. Rt medial elbow likely cellulitis History of venous insufficiency Has bilateral leg cellulitis with a few ulcerations involving the leg skin In ER given Zosyn and Dapto Blood cultures have been negative Legs looking better, continue to monitor right medial elbow Continue with Keflex 06/20 -stop date 06/29. #. DVT Prophylaxis Patient on Eliquis for atrial fibrillation. No family members are available to discuss the case He does not have any connection with any of his family members Disposition: PT recommending home, await rate control and cardiology recommendation. Admission and Anticipated Discharge Date Admission Date: June 17, 2021 Subjective Patient was seen and examined at bedside. Patient was sitting at the edge of the bed, on 2 L nasal cannula oxygen, NAD, no acute events overnight. Patient reports eating and moving bowel movements okay. Patient reports some tenderness over medial right elbow, improving. Patient denies any fever /headache/increased shortness of breath/other review of symptoms. Physical Exam Physical Exam: GENERAL: Alert and oriented x3. NAD, on 2L HEENT: No pallor, no icterus. Pupils equal, round and reactive to light. Oral mucosa moist. NECK: No JVD, no neck masses. HEART: S1 and S2 heard. Regular rate and rhythm. Tachycardia. No murmur, no gallop. RESPIRATORY SYSTEM: Normal AP diameter. No accessory muscle use. No wheezing, no crackles. Decreased breath sounds. ABDOMEN: Soft, bowel sounds present, nontender, no distention. CENTRAL NERVOUS SYSTEM: Alert and oriented x3. No facial droop. Speech is clear. Obeys simple commands. Moves extremities. EXTREMITIES: BLE 1+ edema with chronic skin changes, no erythema seen. Right medial elbow erythema noted, minimal tenderness, likely improving, will monitor. Results & Data Results & Data ([facility]) Vital Signs (Past 12 Hours) Vital Signs Temp Pulse Pulse Pulse Pulse Pulse Resp 06/24/21 15:45 36.9 C 121 H 21 06/24/21 14:32 121 H 06/24/21 13:32 36.5 C 121 H 20 06/24/21 08:19 120 H 117 H 117 H 119 H 06/24/21 08:00 06/24/21 07:39 36.9 C 126 H 18 06/24/21 03:52 83 Resp Resp Resp Resp BP Pulse Ox Pulse Ox 06/24/21 15:45 119/94 92 06/24/21 14:32 130/97 06/24/21 13:32 125/67 91 06/24/21 08:19 18 20 20 18 90 06/24/21 08:00 06/24/21 07:39 134/87 94 06/24/21 03:52 Pulse Ox Pulse Ox Pulse Ox Pulse Ox 06/24/21 15:45 06/24/21 14:32 06/24/21 13:32 06/24/21 08:19 89 L 91 87 L 06/24/21 08:00 94 06/24/21 07:39 06/24/21 03:52 93
[2021-06-25] MEDS: AMIODARONE / D5W 360 MG/200 ML BAG IV SCH (02:32)
[2021-06-25] MEDS: FUROSEMIDE 20 MG TAB PO SCH (08:32)
[2021-06-25] MEDS: LOSARTAN POTASSIUM 25 MG TAB PO SCH (08:32)
[2021-06-25] MEDS: APIXABAN 5 MG TABLET PO SCH ×2 (08:32→19:32)
[2021-06-25] MEDS: cephALEXin 500 MG CAP PO SCH ×4 (08:33→19:32)
[2021-06-25] MEDS: UMECLIDINIUM/VILANTEROL 62.5/25MCG 7 PUFFS/INHALER INH SCH (08:33)
--- NOTE | 2021-06-25 08:51 | Electrocardiogram Report ---
Test Reason : Blood Pressure : / mmHG Vent. Rate : 077 BPM Atrial Rate : 077 BPM P-R Int : 178 ms QRS Dur : 134 ms QT Int : 416 ms P-R-T Axes : 043 -55 056 degrees QTc Int : 470 ms Sinus rhythm with Premature atrial complexes Left atrial enlargement Right bundle branch block Left anterior fascicular block Possible Old Lateral infarct (cited on or before 06-APR-2006) Abnormal ECG When compared with ECG of 20-JUN-2021 08:48, Sinus rhythm has replaced Atrial fibrillation Vent. rate has decreased BY 45 BPM Confirmed by Caden Cedeño ([id number]) on 06/25/2021 8:51:23 AM Referred By: REFERRED SELF Confirmed By:Caden Cedeño
--- NOTE | 2021-06-25 11:00 | Cardiology Progress Note ---
Date of Service June 25, 2021 Assessment & Plan (1) Paroxysmal atrial fibrillation: (2) Atrial tachycardia, multifocal: (3) Bifascicular block: (4) COPD (chronic obstructive pulmonary disease): (5) Cor pulmonale: (6) Acute hypoxemic respiratory failure: (7) COVID-19: Plan: Patient is a 60-year-old male presenting with hypercapnic and hypoxic respiratory failure, Covid pneumonia with lapse into atrial tachycardia with rhythm strips demonstrating atrial fibrillation, atypical atrial flutter as well as multifocal atrial tachycardia currently. Treatment with beta-blockers on initiationwas notable for transient conversion to sinus bradycardia and juncti onal rhythm Rhythm subsequently intermittent multifocal atrial tachycardia and atrial fibrillation paroxysmal. Patient with conversion to sinus rhythm 06/22/2021 then with relapse into atrial fibrillation flutter on 06/24/2021 Patient once again has returned to sinus rhythm after IV amiodarone infusion Recommendations: We will give IV amiodarone load holding further Toprol given underlying bifascicular heart block. Will need to proceed cautiously in order to avoid further AV block Reevaluate rhythm and rate in a.m. with EKG Patient appropriately anticoagulated with Eliquis Would avoid hypoxia if possible Admission and Anticipated Discharge Date Admission Date: June 17, 2021 Subjective Patient was seen and examined, chart, medications, telemetry reviewed. Patient spontaneously converted to sinus rhythm at 3:27 AM while on IV amiodarone infusion. No further arrhythmias. No chest pains or shortness of breath. Still with rhonchorous cough and oxygen demands No chest pains, dizziness or lightheadedness. No bleeding difficulties. 1 brief 3-second pause during transient conversion from atrial fibrillation to sinus yesterday no further events. EKG sinus rhythm with rare atrial ectopy and bifascicular heart block, right bundle branch block left intrafascicular block QT corrected 470 Plan: Change IV amiodarone to oral regimen. No further beta-blockers or AV alison blocking drugs maintain telemetry additional 24 hours Treat underlying pulmonary issues Continue anticoagulation EKG in a.m. Review of Systems Review of Systems: All systems reviewed & are unremarkable except as noted in Subjective Physical Exam Constitutional: + obese; no acute distress Eyes: PERRL, conjunctivae normal, anicteric sclerae ENMT: external ear and nose normal, oropharynx normal Mouth: + dentition abnormality (Overall poor dentition) Neck: trachea midline, no thyromegaly Respiratory: no labored breathing Auscultation: + diminished lung sounds and + rhonchi (Coarse rhonchi with forced cough) Cardiovascular: Rate/Rhythm: regular rate and regular rhythm Heart Sounds: normal S1 and normal S2; no gallop and no murmur Palpation: normal PMI Vessels: normal carotid upstroke and radial pulses present; no JVD and no carotid bruit Extremities: + edema (1-2+ bilateral lower extremity edema with chronic stasis changes ) Gastrointestinal (Abdomen): normal bowel sounds, soft, nontender, no hepatosplenomegaly Musculoskeletal: Head/Neck/Chest: normocephalic; + evidence of head trauma (Mild abrasion forehead) Skin: no rashes, warm and dry Neurologic: PERRL, EOMI, accommodation nl, no face palsy, no dysarthria Psychiatric: A+Ox3, euthymic affect Results & Data ([facility]) Vital Signs (Past 12 Hours) Vital Signs Temp Pulse Pulse Resp BP Pulse Ox 06/25/21 08:06 36.6 C 77 18 142/84 H 91 06/25/21 03:32 37.1 C 82 20 153/99 H 95 06/24/21 23:33 37.4 C 119 H 19 124/90 94
[2021-06-25] MEDS: AMIODARONE 200 MG TAB PO SCH ×2 (12:50→17:12)
--- NOTE | 2021-06-25 14:01 | Hospitalist Progress Note ---
Date of Service June 25, 2021 Assessment & Plan (1) Atrial tachycardia, multifocal: (2) Paroxysmal atrial fibrillation: (3) Acute hypoxemic respiratory failure: (4) Acute hypercapnic respiratory failure: (5) Bilateral lower leg cellulitis: Plan: 60 y/o M with PMH venous insufficiency, tobacco use, dyslipidemia, h/o impaired fasting glucose, obesity presented to ER 06/17 with c/o SOB x 3 days [employer]. Is being managed for the following: #.Acute hypoxemic respiratory failure #. Acute hypercapnic respiratory failure #. Acute exacerbation of COPD #. COVID-19 virus infection - vaccinated; s/p dexa; no remdesivir/other meds. Presented to ER 06/17 with c/o SOB x 3 days [employer]. Not on Home O2. Acute hypoxic respiratory failure with hypercarbia Intubated in the ED 06/17---> transferred to ICU care---> extubated 06/19. Multifactorial likely secondary to obesity hypoventilation syndrome,obstructive lung disease, cor pulmonale and complicated by COVID-19 infection After extubation, has been feeling much better and saturating well, currently on nasal cannula oxygen. Denies any shortness of breath at rest. Needs outpatient polysomnography on discharge. This is very important. 06/24 two-step: will need home O2. 06/24 nocturnal pulse ox: was on 2L Oxymask, Pt took the Oxymask off repeatedly throuhgout the night per RN. Continue with nebulization, supplemental oxygen, supportive management. Getting better. Continue to monitor. #. Atrial fibrillation with RVR Developed atrial fibrillation and has been showing significant pauses up to 3.6 seconds Initially on therapeutic dose Lovenox, transitioned to Eliquis Continue telemetry, converted to sinus 3 AM in the morning, beta-rose held, patient on amiodarone Heart rate in 70s to 90s. Cardiology on board: Titrating amiodarone, EKG in a.m. Metoprolol on hold. #. Upper GI bleed: Noted to have coffee-ground emesis Has been on intravenous octreotide and PPI Hemoglobin remains stable Given the history of alcoholism GI consultation was obtained Appreciate GI input and recommendation No EGD as of now Hemoglobin remains stable #. Fluid overload: Likely has cor pulmonale with cardiomegaly, leg edema and small right pleural effusion Noted to have fluid overload with component of cor pulmonale CTA did not show cardiomegaly and showed small right pleural effusion No overt pulmonary congestion Echo did show grade 1 diastolic dysfunction with normal systolic function and possible mild pulmonary hypertension IandOs so far -13.5 L c/w lasix 20 daily. #. Bilateral lower leg cellulitis: #. Rt medial elbow likely cellulitis History of venous insufficiency Has bilateral leg cellulitis with a few ulcerations involving the leg skin In ER given Zosyn and Dapto Blood cultures have been negative Legs looking better, continue to monitor right medial elbow Continue with Keflex 06/20 -stop date 06/29. #. DVT Prophylaxis Patient on Eliquis for atrial fibrillation. No family members are available to discuss the case He does not have any connection with any of his family members Disposition: PT recommending home, await rate control and cardiology recommendation. Likely DC tomorrow with cardiology recommendation. Admission and Anticipated Discharge Date Admission Date: June 17, 2021 Subjective Patient seen and examined at bedside. Patient on 2 L nasal cannula oxygen, NAD, no acute events overnight. Patient is eating and moving bowels okay. Patient denies any headache/chest pain/palpitation/other review of symptoms. Patient is spontaneously converted to sinus rhythm at around 3 AM in the morning. Physical Exam Physical Exam: GENERAL: Alert and oriented x3. NAD, on 2L HEENT: No pallor, no icterus. Pupils equal, round and reactive to light. Oral mucosa moist. NECK: No JVD, no neck masses. HEART: S1 and S2 heard. Regular rate and rhythm. Tachycardia. No murmur, no gallop. RESPIRATORY SYSTEM: Normal AP diameter. No accessory muscle use. No wheezing, occasional crackles. Decreased breath sounds. ABDOMEN: Soft, bowel sounds present, nontender, no distention. CENTRAL NERVOUS SYSTEM: No facial droop. Speech is clear. Obeys simple commands. Moves extremities. EXTREMITIES: BLE 1+ edema with chronic skin changes, no erythema seen. Right medial elbow erythema noted, minimal tenderness, improving, will monitor. Results & Data Results & Data ([facility]) Vital Signs (Past 12 Hours) Vital Signs Temp Pulse Resp BP Pulse Ox 06/25/21 13:00 36.9 C 91 H 16 154/82 H 90 06/25/21 08:06 36.6 C 77 18 142/84 H 91 06/25/21 03:32 37.1 C 82 20 153/99 H 95
[2021-06-26] MEDS ORDERED: XOPENEX/ATROVENT 1.25mg/0.5MG NEB COMBO NEB PRN (02:25)
[2021-06-26] MEDS ORDERED: IPRATROPIUM BROMIDE NEB SOLN 0.02% 2.5 ML VIAL INH PRN (02:30)
[2021-06-26] MEDS ORDERED: LEVALBUTEROL 1.25MG/0.5ML NEB INH PRN (02:30)
[2021-06-26] MEDS: AMIODARONE 200 MG TAB PO SCH ×3 (02:37→17:38)
[2021-06-26 02:59] LABS: Basophils # (auto) 0.03 K/uL (0-0.2); Basophils % (auto) 0.3 %; Eosinophils # (auto) 0.29 K/uL (0-0.5); Hematocrit (blood only) 46.7 % (42-52); Hemoglobin 14.2 g/dL (14.0-18.0); Immature Granulocytes # (auto) 0.02 K/uL (0.00-0.02); Immature Granulocytes % (auto) 0.2 %; Lymphocytes # (auto) 1.26 K/uL (1.2-3.4); Lymphocytes % (auto) 12.9 %; Mean Corpuscular Hemoglobin 29.8 pg (25-34); Mean Corpuscular Hgb Conc 30.4 g/dL (32-36); Mean Corpuscular Volume 97.9 fL (80-100); Mean Platelet Volume 9.5 fL (7.4-10.4); Monocytes # (auto) 1.35 K/uL (0.11-0.59); Monocytes % (auto) 13.8 %; Neutrophils # (auto) 6.85 K/uL (1.4-6.5); Neutrophils % (auto) 69.8 %; Platelet Count 201 K/uL (130-400); RDW Coefficient of Variation 14.3 % (11.5-14.5); RDW Standard Deviation 51.1 fL (36.4-46.3); Red Blood Count 4.77 M/uL (4.7-6.1)
[2021-06-26 03:23] LABS: BUN Creatinine Ratio 18.4 (10-20); Calcium 8.6 mg/dl (8.5-10.1); Creatinine Clr Calc Pharmacy 113.2 ml/min; Est GFR (African American) 100.6 ml/min; Est GFR (Non-African American) 86.8 ml/min; Magnesium 2.3 mg/dl (1.8-2.4); Potassium 4.2 mmol/L (3.5-5.1)
[2021-06-26] MEDS ORDERED: AMIODARONE / D5W 150 MG/100 ML BAG IV STA (06:19)
[2021-06-26] MEDS ORDERED: 0.2 MICRON FILTER SET 1 EA IV ONE (06:19)
--- NOTE | 2021-06-26 08:47 | Electrocardiogram Report ---
Test Reason : Blood Pressure : / mmHG Vent. Rate : 118 BPM Atrial Rate : 236 BPM P-R Int : 000 ms QRS Dur : 128 ms QT Int : 352 ms P-R-T Axes : 261 -73 040 degrees QTc Int : 493 ms Atrial flutter with 2:1 A-V conduction Right bundle branch block Left anterior fascicular block Old Lateral infarct (cited on or before 06-APR-2006) Abnormal ECG When compared with ECG of 25-JUN-2021 07:49, Atrial flutter has replaced Sinus rhythm Vent. rate has increased BY 41 BPM Confirmed by Caden Cedeño ([id number]) on 06/26/2021 8:47:12 AM Referred By: REFERRED SELF Confirmed By:Caden Cedeño
[2021-06-26] MEDS: APIXABAN 5 MG TABLET PO SCH ×2 (09:02→20:21)
[2021-06-26] MEDS: cephALEXin 500 MG CAP PO SCH ×4 (09:02→20:21)
[2021-06-26] MEDS: LOSARTAN POTASSIUM 25 MG TAB PO SCH ×2 (09:03→20:21)
[2021-06-26] MEDS: UMECLIDINIUM/VILANTEROL 62.5/25MCG 7 PUFFS/INHALER INH SCH (09:03)
[2021-06-26] MEDS: FUROSEMIDE 20 MG TAB PO SCH (09:04)
--- NOTE | 2021-06-26 10:29 | Cardiology Progress Note ---
Date of Service June 26, 2021 Assessment & Plan (1) Paroxysmal atrial fibrillation: (2) Atrial tachycardia, multifocal: (3) Bifascicular block: (4) COPD (chronic obstructive pulmonary disease): (5) Cor pulmonale: (6) Acute hypoxemic respiratory failure: (7) COVID-19: Plan: Patient is a 60-year-old male presenting with hypercapnic and hypoxic respiratory failure, Covid pneumonia with lapse into atrial tachycardia with rhythm strips demonstrating atrial fibrillation, atypical atrial flutter as well as multifocal atrial tachycardia currently. Treatment with beta-blockers on initiationwas notable for transient conversion to sinus bradycardia and juncti onal rhythm Rhythm subsequently intermittent multifocal atrial tachycardia and atrial fibrillation paroxysmal. Patient with conversion to sinus rhythm 06/22/2021 then with relapse into atrial fibrillation flutter on 06/24/2021 Patient returned to sinus rhythm after IV amiodarone infusion Last evening had recurrence of atrial fibrillation flutter and received additional amiodarone bolus Recommendations: Continue amiodarone at 200 mg 3 times daily we will add low- dose beta-rose at metoprolol tartrate 12.5 mg twice per day Increase losartan to 25 mg twice per day Admission and Anticipated Discharge Date Admission Date: June 17, 2021 Subjective Chart medications and telemetry reviewed. Patient not personally examined but care discussed with caregivers Patient had intermittent A. fib flutter last evening and received bolus dose of amiodarone overnight. Now remains in sinus rhythm without QT prolongation no pauses Results & Data ([facility]) Vital Signs (Past 12 Hours) Vital Signs Temp Pulse Resp BP Pulse Ox 06/26/21 07:27 37.0 C 81 19 153/93 H 92 06/26/21 04:30 36.8 C 116 H 24 119/83 91 06/26/21 00:38 36.5 C 89 24 131/76 89 L Laboratory Results Laboratory Results - last 24 hr 06/26/21 06/26/21 02:44 02:44 WBC 9.80 RBC 4.77 Hgb 14.2 Hct 46.7 MCV 97.9 MCH 29.8 MCHC 30.4 L RDW Std Deviation 51.1 H RDW Coeff of Rosanna 14.3 Plt Count 201 MPV 9.5 Immature Gran % (Auto) 0.2 Neut % (Auto) 69.8 Lymph % (Auto) 12.9 [place] % (Auto) 13.8 Eos % (Auto) 3.0 Baso % (Auto) 0.3 Neut # (Auto) 6.85 H Lymph # (Auto) 1.26 [place] # (Auto) 1.35 H Eos # (Auto) 0.29 Baso # (Auto) 0.03 Immature Gran # (Auto) 0.02 Sodium 140 Potassium 4.2 Chloride 105 Carbon Dioxide 34 H Anion Gap 1.0 L BUN 18 Creatinine 0.96 Est Cr Clr Drug Dosing 113.2 Est GFR ( Amer) 100.6 Est GFR (Non-Af Amer) 86.8 BUN/Creatinine Ratio 18.4 Glucose 128 H Calcium 8.6 Magnesium 2.3
[2021-06-26] MEDS ORDERED: METOPROLOL TARTRATE 1 MG/ML VIAL IV ONE (10:53)
[2021-06-26] MEDS: METOPROLOL TARTRATE 25 MG TAB PO SCH ×2 (11:05→20:20)
--- NOTE | 2021-06-26 15:12 | Hospitalist Progress Note ---
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 Is being managed for the following: #.Acute hypoxemic respiratory failure #. Acute hypercapnic respiratory failure #. Acute exacerbation of COPD #. COVID-19 virus infection - vaccinated; s/p dexa; no remdesivir/other meds. 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 Not on Home O2. Acute hypoxic respiratory failure with hypercarbia Intubated in the ED 06/17---> transferred to ICU care---> extubated 06/19. Multifactorial likely secondary to obesity hypoventilation syndrome,obstructive lung disease, cor pulmonale and complicated by COVID-19 infection After extubation, has been feeling much better and saturating well, currently on nasal cannula oxygen. Denies any shortness of breath at rest. Needs outpatient polysomnography on discharge. This is very important. 06/24 two-step: will need home O2. 06/24 nocturnal pulse ox: was on 2L Oxymask, Pt took the Oxymask off repeatedly throuhgout the night per RN. Continue with nebulization, supplemental oxygen, supportive management. Getting better. Continue to monitor. Will need repeat 2 Step tomorrow if plan for discharge. #. Atrial fibrillation with RVR Developed atrial fibrillation and has been showing significant pauses up to 3.6 seconds Initially on therapeutic dose Lovenox, transitioned to Eliquis Continue telemetry, patient on and off A. fib, responding to amiodarone bolus. Heart rate in 70s to 90s. Cardiology on board: Monitor 1 more day, continue with amiodarone 3 times daily, low-dose beta-rose metoprolol tartrate 12.5 twice a day, increase losartan 25 twice a day. #. Upper GI bleed: Noted to have coffee-ground emesis Has been on intravenous octreotide and PPI Hemoglobin remains stable Given the history of alcoholism GI consultation was obtained Appreciate GI input and recommendation No EGD as of now Hemoglobin remains stable #. Fluid overload: Likely has cor pulmonale with cardiomegaly, leg edema and small right pleural effusion Noted to have fluid overload with component of cor pulmonale CTA did not show cardiomegaly and showed small right pleural effusion No overt pulmonary congestion Echo did show grade 1 diastolic dysfunction with normal systolic function and possible mild pulmonary hypertension IandOs so far -12.8 L c/w lasix 20 daily. #. Bilateral lower leg cellulitis: #. Rt medial elbow likely cellulitis History of venous insufficiency Has bilateral leg cellulitis with a few ulcerations involving the leg skin In ER given Zosyn and Dapto Blood cultures have been negative Legs looking better, continue to monitor right medial elbow Continue with Keflex 06/20 -stop date 06/29. #. DVT Prophylaxis Patient on Eliquis for atrial fibrillation. No family members are available to discuss the case He does not have any connection with any of his family members Disposition: PT recommending home, await rate control and cardiology recommendation. Likely DC tomorrow with cardiology recommendation. Admission and Anticipated Discharge Date Admission Date: June 17, 2021 Subjective Patient lying in bed, on 2 L nasal cannula oxygen, NAD, no acute events overnight per patient. Last evening patient was into A. fib and needed amiodarone bolus to control weight. Patient on and off a flutter, will need more medical optimization per cardiology, patient to remain 1 more day. Patient reports improvement in his right elbow erythema. Patient denies any fever/headache/chills/chest pain/palpitation/other review of symptoms. Physical Exam Physical Exam: GENERAL: Alert and oriented x3. NAD, on 2L HEENT: No pallor, no icterus. Pupils equal, round and reactive to light. Oral mucosa moist. NECK: No JVD, no neck masses. HEART: S1 and S2 heard. Regular rate and rhythm. Tachycardia. No murmur, no gallop. RESPIRATORY SYSTEM: Normal AP diameter. No accessory muscle use. No wheezing, occasional crackles. Decreased breath sounds. ABDOMEN: Soft, bowel sounds present, nontender, no distention. CENTRAL NERVOUS SYSTEM: No facial droop. Speech is clear. Obeys simple commands. Moves extremities. EXTREMITIES: BLE 1+ edema with chronic skin changes, no erythema seen. Right medial elbow erythema noted, no tenderness, improving, will monitor. Results & Data Results & Data ([facility]) Vital Signs (Past 12 Hours) Vital Signs Temp Pulse Pulse Resp BP BP Pulse Ox 06/26/21 11:02 127 H 164/84 H 06/26/21 08:00 86 06/26/21 07:27 37.0 C 81 19 153/93 H 92 06/26/21 04:30 36.8 C 116 H 24 119/83 91
[2021-06-26] MEDS ORDERED: METOPROLOL TARTRATE 25 MG TAB PO ONE (16:11)
[2021-06-27] MEDS: FUROSEMIDE 20 MG TAB PO SCH (07:39)
[2021-06-27] MEDS: METOPROLOL TARTRATE 25 MG TAB PO SCH ×2 (07:39→20:59)
[2021-06-27] MEDS: APIXABAN 5 MG TABLET PO SCH ×2 (07:40→20:58)
[2021-06-27] MEDS: AMIODARONE 200 MG TAB PO SCH ×3 (07:40→18:12)
[2021-06-27] MEDS: UMECLIDINIUM/VILANTEROL 62.5/25MCG 7 PUFFS/INHALER INH SCH (07:41)
[2021-06-27] MEDS: LOSARTAN POTASSIUM 25 MG TAB PO SCH ×2 (07:41→20:59)
--- NOTE | 2021-06-27 13:55 | Cardiology Progress Note ---
Date of Service June 27, 2021 Assessment & Plan (1) Paroxysmal atrial fibrillation: (2) Atrial tachycardia, multifocal: (3) Bifascicular block: (4) COPD (chronic obstructive pulmonary disease): (5) Cor pulmonale: (6) Acute hypoxemic respiratory failure: (7) COVID-19: Plan: Patient is a 60-year-old male presenting with hypercapnic and hypoxic respiratory failure, Covid pneumonia with lapse into atrial tachycardia with rhythm strips demonstrating atrial fibrillation, atypical atrial flutter as well as multifocal atrial tachycardia currently. Treatment with beta-blockers on initiationwas notable for transient conversion to sinus bradycardia and juncti onal rhythm Rhythm subsequently intermittent multifocal atrial tachycardia and atrial fibrillation paroxysmal. Patient with conversion to sinus rhythm 06/22/2021 then with relapse into atrial fibrillation flutter on 06/24/2021 Patient returned to sinus rhythm after IV amiodarone infusion Last evening had recurrence of atrial fibrillation flutter and received additional amiodarone bolus Recommendations: Continue amiodarone at 200 mg 3 times daily we will add low- dose beta-rose at metoprolol tartrate 12.5 mg twice per day still in afib/flutter with rvr will give extra dose of metoprolol 12.5mg po now Admission and Anticipated Discharge Date Admission Date: June 17, 2021 Results & Data ([facility]) Vital Signs (Past 12 Hours) Vital Signs Temp Pulse Pulse Resp BP Pulse Ox Pulse Ox 06/27/21 12:19 36.4 C L 117 H 21 120/70 90 06/27/21 08:00 92 06/27/21 07:37 36.0 C L 114 H 20 119/76 92 06/27/21 07:30 114 H 06/27/21 02:49 36.8 C 77 18 124/85
[2021-06-27] MEDS ORDERED: METOPROLOL TARTRATE 25 MG TAB PO ONE (14:00)
--- NOTE | 2021-06-27 19:35 | Hospitalist Progress Note ---
Date of Service June 27, 2021 Assessment & Plan (1) Atrial tachycardia, multifocal: (2) Paroxysmal atrial fibrillation: (3) Acute hypoxemic respiratory failure: (4) Acute hypercapnic respiratory failure: (5) Bilateral lower leg cellulitis: Plan: 60 y/o M with PMH venous insufficiency, tobacco use, dyslipidemia, h/o impaired fasting glucose, obesity presented to ER 06/17 with c/o SOB x 3 days [employer]. Is being managed for the following: #.Acute hypoxemic respiratory failure #. Acute hypercapnic respiratory failure #. Acute exacerbation of COPD #. COVID-19 virus infection - vaccinated; s/p dexa; no remdesivir/other meds. Presented to ER 06/17 with c/o SOB x 3 days [employer]. Not on Home O2. Acute hypoxic respiratory failure with hypercarbia Intubated in the ED 06/17---> transferred to ICU care---> extubated 06/19. Multifactorial likely secondary to obesity hypoventilation syndrome,obstructive lung disease, cor pulmonale and complicated by COVID-19 infection After extubation, has been feeling much better and saturating well, currently on nasal cannula oxygen. Denies any shortness of breath at rest. Needs outpatient polysomnography on discharge. This is very important. 06/24 two-step: will need home O2. 06/24 nocturnal pulse ox: was on 2L Oxymask, Pt took the Oxymask off repeatedly throuhgout the night per RN. Continue with nebulization, supplemental oxygen, supportive management. Getting better. Continue to monitor. Will need repeat 2 Step tomorrow if plan for discharge. #. Atrial fibrillation with RVR Developed atrial fibrillation and has been showing significant pauses up to 3.6 seconds Initially on therapeutic dose Lovenox, transitioned to Eliquis Continue telemetry, patient on and off A. fib, responding to amiodarone bolus. Will need further medication optimization per cardiology. Cardiology on board: Monitor 1 more day, continue with amiodarone 3 times daily, low-dose beta-rose metoprolol tartrate 12.5 twice a day, increase losartan 25 twice a day. Extra dose of metoprolol tartrate 12.5 mg today. #. Upper GI bleed: Noted to have coffee-ground emesis Has been on intravenous octreotide and PPI Hemoglobin remains stable Given the history of alcoholism GI consultation was obtained Appreciate GI input and recommendation No EGD as of now Hemoglobin remains stable #. Fluid overload: Likely has cor pulmonale with cardiomegaly, leg edema and small right pleural effusion Noted to have fluid overload with component of cor pulmonale CTA did not show cardiomegaly and showed small right pleural effusion No overt pulmonary congestion Echo did show grade 1 diastolic dysfunction with normal systolic function and possible mild pulmonary hypertension IandOs so far -12.5 L c/w lasix 20 daily. #. Bilateral lower leg cellulitis: #. Rt medial elbow likely cellulitis History of venous insufficiency Has bilateral leg cellulitis with a few ulcerations involving the leg skin In ER given Zosyn and Dapto Blood cultures have been negative Legs looking better, continue to monitor right medial elbow Continue with Keflex 06/20 -stop date 06/29. #. DVT Prophylaxis Patient on Eliquis for atrial fibrillation. No family members are available to discuss the case He does not have any connection with any of his family members Disposition: PT recommending home, await rate control and cardiology recommendation. Likely DC tomorrow with cardiology recommendation. Admission and Anticipated Discharge Date Admission Date: June 17, 2021 Subjective Patient sitting up in bed, eating his lunch, on room air, looked comfortable. Patient is in and out of A. fib with RVR, will be monitor 1 more day per cardiology. Patient reports improvement in his right elbow erythema. Patient denies any fever/headache/chills/chest pain/palpitation/other review of symptoms. Physical Exam Physical Exam: GENERAL: Alert and oriented x3. NAD, on RA HEENT: No pallor, no icterus. Pupils equal, round and reactive to light. Oral mucosa moist. NECK: No JVD, no neck masses. HEART: S1 and S2 heard. Regular rate and rhythm. Tachycardia. No murmur, no gallop. RESPIRATORY SYSTEM: Normal AP diameter. No accessory muscle use. No wheezing, occasional crackles. Decreased breath sounds. ABDOMEN: Soft, bowel sounds present, nontender, no distention. CENTRAL NERVOUS SYSTEM: No facial droop. Speech is clear. Obeys simple commands. Moves extremities. EXTREMITIES: BLE 1+ edema with chronic skin changes, no erythema seen. Right medial elbow erythema noted, no tenderness, improving, will monitor. Results & Data Results & Data ([facility]) Vital Signs (Past 12 Hours) Vital Signs Temp Pulse Pulse Resp BP Pulse Ox Pulse Ox 06/27/21 16:13 117 H 06/27/21 16:07 36.7 C 116 H 18 139/88 95 06/27/21 12:19 36.4 C L 117 H 21 120/70 90 06/27/21 08:00 92 06/27/21 07:37 36.0 C L 114 H 20 119/76 92
[2021-06-28] MEDS: LOSARTAN POTASSIUM 25 MG TAB PO SCH (08:46)
[2021-06-28] MEDS: APIXABAN 5 MG TABLET PO SCH (08:46)
[2021-06-28] MEDS: METOPROLOL TARTRATE 25 MG TAB PO SCH (08:46)
[2021-06-28] MEDS: AMIODARONE 200 MG TAB PO SCH ×3 (08:47→16:16)
[2021-06-28] MEDS: FUROSEMIDE 20 MG TAB PO SCH (08:47)
[2021-06-28 09:42] LABS: BUN Creatinine Ratio 23.6 (10-20); Calcium 8.6 mg/dl (8.5-10.1); Creatinine Clr Calc Pharmacy 143.7 ml/min; Est GFR (African American) 117.2 ml/min; Est GFR (Non-African American) 101.1 ml/min; Magnesium 2.4 mg/dl (1.8-2.4); Potassium 4.6 mmol/L (3.5-5.1)
[2021-06-28 09:43] LABS: Phosphorus 3.5 mg/dl (2.5-4.9)
--- NOTE | 2021-06-28 11:03 | Cardiology Progress Note ---
Date of Service June 28, 2021 Assessment & Plan (1) Paroxysmal atrial fibrillation: (2) Atrial tachycardia, multifocal: (3) Bifascicular block: (4) COPD (chronic obstructive pulmonary disease): (5) Cor pulmonale: (6) Acute hypoxemic respiratory failure: (7) COVID-19: Plan: Patient is a 60-year-old male presenting with hypercapnic and hypoxic respiratory failure, Covid pneumonia with lapse into atrial tachycardia with rhythm strips demonstrating atrial fibrillation, atypical atrial flutter as well as multifocal atrial tachycardia currently. Treatment with beta-blockers on initiationwas notable for transient conversion to sinus bradycardia and juncti onal rhythm Rhythm subsequently intermittent multifocal atrial tachycardia and atrial fibrillation paroxysmal. Patient with conversion to sinus rhythm 06/22/2021 then with relapse into atrial fibrillation flutter on 06/24/2021 Patient returned to sinus rhythm after IV amiodarone infusion Last evening had recurrence of atrial fibrillation flutter and received additional amiodarone bolus Recommendations: rates are now controlled. ok to d/c with amio 200mg po bid and metoprolol 12.5mg po bid along with Eliquis 5mg bid cardiology f/u as an outpatient in 1 month Admission and Anticipated Discharge Date Admission Date: June 17, 2021 Results & Data ([facility]) Vital Signs (Past 12 Hours) Vital Signs Temp Pulse Resp BP Pulse Ox 06/28/21 07:39 36.8 C 77 16 131/74 94 06/28/21 03:31 36.8 C 79 22 122/82 89 L 06/27/21 23:23 37.1 C 75 17 134/85 95
[2021-06-28] MEDS: UMECLIDINIUM/VILANTEROL 62.5/25MCG 7 PUFFS/INHALER INH SCH (12:23)
--- NOTE | 2021-06-28 15:09 | Discharge Summary ---
Date of Service June 28, 2021 Admission HPI Per Admitting Provider Patient is 60 y/o M with PMH venous insufficiency, tobacco use, dyslipidemia, h/o impaired fasting glucose, obesity presented to ER with c/o SOB x 3 days. Patient previously followed with Dr Chu however has not been seen since 2017. At that time was prescribed atorvastatin 20mg and metformin 500mg daily. History obtained from chart review and ER provider as patient is intubated. Reported SOB x 3 days, chest tightness and cough. Reported chronic leg swelling and weeping. Reported possible syncopal episode 2 days ago and hitting head. In ER patient patient afebrile, patient presented with oxygen sat of 74% on room air. Reported patient was confused. Patient was initially given albuterol neb and placed on nonrebreather. VBG: pH: 7.12, pCO2: 94. Pt placed on bipap. He later decompensated and required intubation. +COVID-19 positive, lactate: 1.3, procalcitonin: 0.07, CRP: 2.3, BNP: 6848, D- Dimer: 1090 CTA chest: no PE, small right pleural effusion with right basilar consolidation CT head: No acute intracerebral findings In ER given dexamethasone 10 mg IV, Lasix 40 mg IV, labetalol 10 mg IV, Zosyn, Daptomycin. ABG obtained: pH: 7.14, pCO2: 104, pO2: 74, HCO3: 35 Unable to obtain alcohol or drug use history. 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 Discharge Exam GENERAL: Alert and oriented x3. NAD, on RA at bedside eating breakfast. HEENT: No pallor, no icterus. Pupils equal, round and reactive to light. Oral mucosa moist. NECK: No JVD, no neck masses. HEART: S1 and S2 heard. Regular rate and rhythm. Tachycardia. No murmur, no gallop. RESPIRATORY SYSTEM: Normal AP diameter. No accessory muscle use. No wheezing, occasional crackles. Decreased breath sounds. ABDOMEN: Soft, bowel sounds present, nontender, no distention. CENTRAL NERVOUS SYSTEM: No facial droop. Speech is clear. Obeys simple commands. Moves extremities. EXTREMITIES: BLE 1+ edema with chronic skin changes, no erythema seen. Right medial elbow faint erythema noted, no tenderness, improved from prior. 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 06/19/21 02:21 Consult Gastroenterology Routine 06/20/21 13:28 Consult Cardiology Routine Ordered Studies 06/17/21 13:25 CT angio chest PE protocol Stat CT head/brain wo con Stat 06/19/21 00:19 US duplex portal hepatic veins Urgent Hospital Course (1) Atrial tachycardia, multifocal: (2) Paroxysmal atrial fibrillation: (3) Acute hypoxemic respiratory failure: (4) Acute hypercapnic respiratory failure: (5) Bilateral lower leg cellulitis: 60 y/o M with PMH venous insufficiency, tobacco use, dyslipidemia, h/o impaired fasting glucose, obesity presented to ER 06/17 with 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 He was managed for the following: #.Acute hypoxemic respiratory failure #. Acute hypercapnic respiratory failure #. Acute exacerbation of COPD #. COVID-19 virus infection - vaccinated; s/p dexa; no remdesivir/other meds. 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 Not on Home O2. Acute hypoxic respiratory failure with hypercarbia Intubated in the ED 06/17---> transferred to ICU care---> extubated 06/19. Multifactorial likely secondary to obesity hypoventilation syndrome,obstructive lung disease, cor pulmonale and complicated by COVID-19 infection After extubation, has been feeling much better and saturating well, currently on nasal cannula oxygen. Denies any shortness of breath at rest. Needs outpatient polysomnography on discharge. This is very important. Encouraged complete smoking cessation. 06/24 two-step: will need home O2. 06/24 nocturnal pulse ox: was on 2L Oxymask, Pt took the Oxymask off repeatedly throuhgout the night per RN. Continue with nebulization, supplemental oxygen, supportive management. Getting better. Continue to monitor. 2 Step repeated, pt needs home O2. Provided Script. #. Atrial fibrillation with RVR Developed atrial fibrillation and has been showing significant pauses up to 3.6 seconds Initially on therapeutic dose Lovenox, transitioned to Eliquis Continue telemetry, patient on and off A. fib, responding to amiodarone bolus. Cardiology OK with pt going home, meds optimized per cardiology. #. Upper GI bleed: Noted to have coffee-ground emesis Has been on intravenous octreotide and PPI Hemoglobin remains stable Given the history of alcoholism GI consultation was obtained Appreciate GI input and recommendation No EGD as of now Hemoglobin remains stable #. Fluid overload: Likely has cor pulmonale with cardiomegaly, leg edema and small right pleural effusion Noted to have fluid overload with component of cor pulmonale CTA did not show cardiomegaly and showed small right pleural effusion No overt pulmonary congestion Echo did show grade 1 diastolic dysfunction with normal systolic function and possible mild pulmonary hypertension IandOs so far -12.5 L c/w lasix 20 daily. Improved significantly by the time of Discharge #. Bilateral lower leg cellulitis: #. Rt medial elbow likely cellulitis History of venous insufficiency Has bilateral leg cellulitis with a few ulcerations involving the leg skin In ER given Zosyn and Dapto Blood cultures have been negative Legs looking better, continue to monitor right medial elbow Continue with Keflex 06/20 -stop date 06/29. #. DVT Prophylaxis Patient on Eliquis for atrial fibrillation. No family members are available to discuss the case He does not have any connection with any of his family members Patient being discharged home with following instruction at the time of discharge: Follow-up with your primary care physician within a week time. Follow-up with your cardiology doctor in 1 month time. You have been started on new medications for your heart problem, take medications as prescribed. You have been diagnosed with Covid on 06/17/2021, you could be off of isolation 07/08/2021 onwards. Maintain self-isolation at home. Continue to do incentive spirometry as discussed at the bedside. Encourage strict smoking cessation. You will need to establish and maintain follow-up with a lung doctor, you will need pulmonary function test as an outpatient and sleep study as an outpatient. Total Time Total Time Spent Total Time Spent (In Minutes): 45 Discharge Plan Discharge Items Patient Disposition: Home - Self-Care Reason For Visit: ACUTE RESP FAILURE Discharge Diagnosis: Covid pneumonia Atrial fibrillation with RVR. Activity: Resume your previous activity Non-emergency contact: Primary Care Provider Call non-emergency contact if: you have any medication questions and your symptoms worsen Follow-up/Referrals: Ash Amador DO [Physician] - 06/29/21 1:40 pm (Date & Time 06/29/2021 1:40 PM Provider Ash Amador DO Department [facility] ) Diet: Heart Healthy Addtl Attending Provider Instructions: Follow-up with your primary care physician within a week time. Follow-up with your cardiology doctor in 1 month time. You have been started on new medications for your heart problem, take medications as prescribed. You have been diagnosed with Covid on 06/17/2021, you could be off of isolation 07/08/2021 onwards. Maintain self-isolation at home. Continue to do incentive spirometry as discussed at the bedside. Encourage strict smoking cessation. You will need to establish and maintain follow-up with a lung doctor, you will need pulmonary function test as an outpatient and sleep study as an outpatient. Home Isolation COVID-19 Instructions The following information about Home Isolation is from the CDC Website: https://www.cdc.gov/coronavirus/2019-ncov/hcp/nzdstidb-haftdzj-lfumta.html Stay home except to get medical care People who are mildly ill with COVID-19 are able to isolate at home during their illness. You should restrict activities outside your home, except for getting medical care. Do not go to work, school, or public areas. Avoid using public tra nsportation, ride-sharing, or taxis. Separate yourself from other people and animals in your home People: As much as possible, you should stay in a specific room and away from other people in your home. Also, you should use a separate bathroom, if available. Animals: You should restrict contact with pets and other animals while you are sick with COVID-19, just like you would around other people. Although there have not been reports of pets or other animals becoming sick with COVID-19, it is still recommended that people sick with COVID-19 limit contact with animals until more information is known about the virus. When possible, have another member of your household care for your animals while you are sick. If you are sick with COVID-19, avoid contact with your pet, including petting, snuggling, being kissed or licked, and sharing food. If you must care for your pet or be around animals while you are sick, wash your hands before and after you interact with pets and wear a face mask. Call ahead before visiting your doctor If you have a medical appointment, call the healthcare provider and tell them that you have or may have COVID-19. This will help the healthcare providers office take steps to keep other people from getting infected or exposed. Wear a face mask You should wear a face mask when you are around other people (e.g., sharing a room or vehicle) or pets and before you enter a healthcare providers office. If you are not able to wear a face mask (for example, because it causes trouble breathing), then people who live with you should not stay in the same room with you, or they should wear a face mask if they enter your room. Cover your coughs and sneezes Cover your mouth and nose with a tissue when you cough or sneeze. Throw used tissues in a lined trash can. Immediately wash your hands with soap and water for at least 20 seconds or, if soap and water are not available, clean your hands with an alcohol-based hand lighter captain that contains at least 60% alcohol. Clean your hands often Wash your hands often with soap and water for at least 20 seconds, especially after blowing your nose, coughing, or sneezing; going to the bathroom; and before eating or preparing food. If soap and water are not readily available, use an alcohol-based hand lighter captain with at least 60% alcohol, covering all surfaces of your hands and rubbing them together until they feel dry. Soap and water are the best option if hands are visibly dirty. Avoid touching your eyes, nose, and mouth with unwashed hands. Avoid sharing personal household items You should not share dishes, drinking glasses, cups, eating utensils, towels, or bedding with other people or pets in your home. After using these items, they should be washed thoroughly with soap and water. Clean all high-touch surfaces everyday High touch surfaces include counters, tabletops, doorknobs, bathroom fixtures, toilets, phones, keyboards, tablets, and bedside tables. Also, clean any surfaces that may have blood, stool, or body fluids on them. Use a household cleaning spray or wipe, according to the label instructions. Labels contain instructions for safe and effective use of the cleaning product including precautions you should take when applying the product, such as wearing gloves and making sure you have good ventilation during use of the product. Monitor your symptoms Seek prompt medical attention if your illness is worsening (e.g., difficulty breathing).Beforeseeking care, call your healthcare provider and tell them that you have, or are being evaluated for, COVID-19. Put on a face mask before you enter the facility. These steps will help the healthcare providers office to keep other people in the office or waiting room from getting infected or exposed. Ask your healthcare provider to call the local or formerly [facility] health department. Persons who are placed under active monitoring or facilitated self- monitoring should follow instructions provided by their local health department or occupational health professionals, as appropriate. When working with your local health department check their available hours. If you have a medical emergency and need to call 911, notify the dispatch personnel that you have, or are being evaluated for COVID-19. If possible, put on a face mask before emergency medical services arrive. Discontinuing home isolation Patients with confirmed COVID-19 should remain under home isolation precautions until the risk of secondary transmission to others is thought to be low. The decision to discontinue home isolation precautions should be made on a [id number] basis, in consultation with healthcare providers and formerly [facility] and local health departments. Pending Studies at Discharge: No Stand-Alone Forms: My [facility], Smoking Cessation Medications and DC Order Prescriptions: New levalbuterol HCl 1.25 mg/0.5 mL Solution For Nebulization 1.25 mg inhalation [id number] PRN (Reason: shortness of breath or wheezing) 30 Days Qty: 30 RF: 4 Anoro Ellipta 62.5-25 mcg/actuation Blister With Device 1 ea inhalation DAILY 30 Days Qty: 60 RF: 0 Eliquis 5 mg Tablet 5 mg PO BID Qty: 60 RF: 0 amiodarone 200 mg Tablet 200 mg PO BIDM Qty: 60 RF: 0 metoprolol tartrate 25 mg Tablet 12.5 mg PO BID Qty: 30 RF: 0 losartan 25 mg Tablet 25 mg PO BID Qty: 60 RF: 0 furosemide 20 mg Tablet 20 mg PO QAM Qty: 30 RF: 0 cephalexin 500 mg capsule 500 mg PO Q6H 3 Days Qty: 12 RF: 0 Probiotic 10 billion cell capsule 10 mg PO DAILY 3 Days Qty: 3 RF: 0 No Action No Known Home Medications RF: 0 Discharge Orders: Discharge Order (Routine); Ordered 06/28/21 Ordered By: Simon Buckley/Other Patient Handouts: 5 Steps for Eating Healthier, Exercise: Why Fitness Matters, Type 2 Diabetes Admission Data Admit Date/Time: 06/17/21 16:12 Attending Provider: Simon Devi Admit Provider: Cooper Fisher Primary Care Provider: PCP,NO Other Providers: Trey Marin ; Cooper Fisher ; Jane Guzman ; Delores Junior ; Tiara Fatima ; Naomi Davidson ; Yuan Benavides ; Travis Reyes ; Brigida Verma ; Tha Ring ; Suzan Loera ; Velma Hernandez ; Sabina Ye ; Ramona Hood ; Adam Maldonado ; Thomas Barber
== END 2021-06-28 17:15 | disposition home or self-care (01) | DRG 208 ==
LOC: ED 11:54 → SUATTDRO 16:12 → 1E 16:12 → 2E 06-20 15:45